=== PATIENT | female | born 1970 | race Caucasian/White ===

== ENCOUNTER 2019-09-03 18:45 | Emergency (ER) | payer OTHER, SELFPAY ==
[2019-09-03] VITALS (7 sets, daily range): BP systolic 99–133; BP diastolic 59–83; PULSE 72–88; RESP 12–26; TEMP 37.8; O2SAT 97–100; BMI 21.8
--- NOTE | 2019-09-03 19:11 | RAD_ITS ---
STUDY: X-RAY - RIGHT FOOT CLINICAL: Female, 49 years old. Fell on ice. TECHNIQUE: 3 view(s) of the foot. COMPARISON: None. FINDINGS: Fracture subluxation of the ankle. Talus and calcaneus are intact. Moderate heel spur. Normal visualized subtalar, talonavicular, calcaneocuboid, tarsal and tarsometatarsal articulations. Normal metatarsi. Normal metatarsophalangeal joint of the great toe. Normal tibial and fibular sesamoid bones. Normal interphalangeal joint of the great toe. Normal phalanges of the great toe. Normal second through fifth metatarsophalangeal joints. Normal interphalangeal joints and phalanges of the lesser toes. The soft tissue structures are unremarkable. RAD/Foot min 3 Views IMPRESSION: Fracture subluxation of the ankle. The foot is intact. Electronically Signed: Pamela Medeiros MD at 19:37 EST Tel , Service support ,
--- NOTE | 2019-09-03 19:14 | ED.VISSUMM ---
- ER Visit Summary Date of Service: 09/03/19 Chief Complaint: Right foot and ankle pain History of Present Illness: The patient is a 49 F presenting with right foot and ankle injury. Patient states she slipped on ice twisting her right foot and ankle. She states she felt that it was out of place and she pulled it back into place. This happened earlier today. She states she noticed later increasing swelling and pain. She denies other injuries. She did not hit her head or lose consciousness. No other complaints. Physical Examination: Vitals are stable. Patient is afebrile. Alert no acute distress. HEENT exam is unremarkable. Neck is nontender Lungs are clear and equal bilaterally. Heart is regular rate and rhythm. Extremities diffuse right foot and ankle ecchymosis and swelling. Normal pulse. No proximal fibula tenderness. Skin is warm and dry. No focal neurologic deficit. Remainder of exam is unremarkable. Emergency Department Course and Treatment: Patient declined [place]. She was given Motrin. Ice pack was applied. X-ray right foot and ankle show acute fracture subluxation of the ankle. The foot is intact. Patient was consented for procedural sedation. She was given propofol IV. Closed reduction was performed. Ortho-Glass splint was applied. Postreduction x-rays show anatomic alignment status post reduction. Discussed with Dr. Fong and patient will follow-up as an outpatient. She is given crutches and advised nonweightbearing. She is given a prescription for Percocet. Advised to follow-up with Dr. Fong. Advised return to ED if worsening complaints. Disposition: Discharge home Impression: Right ankle fracture/subluxation, procedural sedation, closed reduction This note was generated with [employer] dictation software. It may contain incorrect words, spelling, and punctuation that were not noted in review of the chart prior to signing ED Disposition - Plan for ED Patient: Instructions: FRACTURE, Lower Extremity Prescriptions: Oxycodone HCl/Acetaminophen [Percocet 5/325] 1 tab PO Q6H PRN PRN 5 Days #20 tab PRN Reason: Pain Score 6-10/10 Prescription Printed Referrals: Jair Fong DPM [STAFF PHYSICIAN] - Em Abraham PA [PHYSICIAN SPORTS LEADERSHIP INSTRUCTOR] -
--- NOTE | 2019-09-03 19:18 | RAD_ITS ---
STUDY: X-RAY - RIGHT ANKLE REASON FOR EXAM: Female, 49 years old. Fell on ice. TECHNIQUE: 3 view(s) of the ankle. COMPARISON: None. FINDINGS: Acute fracture subluxation of the ankle. Steep oblique fracture of the distal fibula extends to the level of the talar dome. There is 3 mm dorsolateral displacement of the distal fragment. No angulation. There is moderate lateral subluxation of the talus relative to the distal tibia. There is moderate widening of the medial tibiotalar joint. Transverse fracture of the medial malleolus, with 3 mm lateral displacement of the malleolar fragment. The tibia is otherwise intact. No posterior tibial fracture. Talus and calcaneus are intact. Moderate calcaneal spur. Visualized midfoot is unremarkable. RAD/Ankle min 3 Views IMPRESSION: Acute fracture subluxation of the ankle. Electronically Signed: Pamela Medeiros MD at 19:36 EST Tel , Service support ,
[2019-09-03] MEDS: Ibuprofen 600 MG Tablet PO (19:19)
--- NOTE | 2019-09-03 19:50 | ED.RN ---
DR SMITH PAGED FOR DR QUINTANA
--- NOTE | 2019-09-03 20:42 | RAD_ITS ---
STUDY: X-RAY - RIGHT ANKLE REASON FOR EXAM: Female, 49 years old. Post reduction. TECHNIQUE: 3 view(s) of the ankle. COMPARISON: 7:15 PM. FINDINGS: Status post reduction of bimalleolar fracture subluxation of the ankle, casted in fiberglass. Distal fibula fracture is in anatomic alignment, no angulation. Normal tibiotalar alignment, with no subluxation. Medial malleolar fracture is again demonstrated, with 5 mm distraction and 2 mm medial displacement of the malleolar fragment. Soft tissues and bony structures are otherwise unremarkable. RAD/Ankle min 3 Views IMPRESSION: Anatomic alignment status post reduction. Electronically Signed: Pamela Medeiros MD at 20:58 EST Tel , Service support ,
[2019-09-03] MEDS: Propofol 200 MG/20 ML Vial IV BOLUS (20:57)
[2019-09-03] MEDS: oxyCODONE 5 MG Tablet PO (21:10)
--- NOTE | 2019-09-03 21:26 | DCINST.ED_ITS ---
ED Disposition - Plan for ED Patient: Instructions: FRACTURE, Lower Extremity Prescriptions: Oxycodone HCl/Acetaminophen [Percocet 5/325] 1 tablet PO Q6H PRN PRN 5 Days #20 tablet PRN Reason: Pain Score 6-10/10 Referrals: Em Abraham PA [PHYSICIAN MEMBER SERVICE SPECIALIST] - Jair Fong DPM [STAFF PHYSICIAN] -
== END 2019-09-03 22:17 | disposition home or self-care (01) ==
LOC: ED 19:29
PROVIDERS: Emergency Provider Emergency Medicine
DX: S82.841A Displaced bimalleolar fracture of right lower leg, initial encounter for closed fracture (principal); S93.01XA Subluxation of right ankle joint, initial encounter; W00.0XXA Fall on same level due to ice and snow, initial encounter; Y93.9 Activity, unspecified; Z72.0 Tobacco use
CPT/HCPCS: 27810; 73610; 73630; 99152; 99285; J7030

== ENCOUNTER 2019-09-11 12:36 | Inpatient (IN) | payer OTHER, SELFPAY ==
[2019-09-03 18:46] VITALS: BMI 21.8
[2019-09-11 11:27] VITALS: BMI 23.7
[2019-09-11 12:15] VITALS: BP 126/77; PULSE 69; RESP 16; TEMP 36.9; O2SAT 100
--- NOTE | 2019-09-11 12:45 | EKG12_ITS ---
Test Reason : PREOP Blood Pressure : / mmHG Vent. Rate : 066 BPM Atrial Rate : 066 BPM P-R Int : 150 ms QRS Dur : 076 ms QT Int : 380 ms P-R-T Axes : 047 047 059 degrees QTc Int : 398 ms Normal sinus rhythm Normal ECG Confirmed by FILIBERTO MACKEY, NARA ([id number]), fashion editor HENRIETTA BULL ([id number]) on 09/18/2019 11:30:53 AM Referred By: Courtney Mosquera Confirmed By:NARA DE LOS SANTOS MD
--- NOTE | 2019-09-11 13:50 | RAD_ITS ---
STUDY: X-RAY CHEST REASON FOR EXAM: Female, 49 years old. Preoperative exam. TECHNIQUE: Frontal and lateral views of the chest COMPARISON: None. FINDINGS: The lungs are clear. There are no pleural effusions. There is no pneumothorax. The heart is normal in size. The visualized osseous structures are within normal limits. RAD/Chest PA and Lateral IMPRESSION: Clear lungs. Electronically Signed: Herb Whitaker, at 16:35 EST Tel , Service support ,
[2019-09-11 14:00] LABS: Absolute Lymphocyte Count 1.61 X10^3/uL (0.83-4.51); Absolute Neutrophil Count 4.6 X10^3/uL (2.0-7.7); Basophil# 0.02 X10^3/uL; Basophil% 0.3 % (0-1); Eosinophil# 0.05 X10^3/uL; Eosinophils% 0.7 % (0-5); Hematocrit 26.3 % (37-47); Hemoglobin 7.3 g/dL (12.0-15.0); Lymphocyte # 1.61 X10^3/ul (4.0); Lymphocyte % 23.7 % (19-41); Mean Corp Hgb Conc 27.8 g/dL (32-36); Mean Corpuscular Hgb 17.1 pg (27.0-32.0); Mean Corpuscular Volume 61.6 fL (81-99); Mean Platelet Vol. 9.4 fl (6.2-12.0); Monocyte# 0.46 X10^3/uL; Monocyte% 6.8 % (0-10); NRBC Flagged by Analyzer 0 % (0-5); Neutrophil # 4.64 X10^3/uL (2.7-7.7); Neutrophil % 68.2 % (47-70); POSITIVE MORPHOLOGY YES; Platelet Count 339 K/mm3 (150-450); RBC Distribution Width CV 21.2 % (11.6-14.6); RBC Distribution Width SD 45.4 fl (35.1-43.9); Red Blood Count 4.27 M/mm3 (4.2-5.4); White Blood Count 6.8 K/mm3 (4.4-11.0)
[2019-09-11 14:09] LABS: Differential Indicated SCAN CRITERIA MET
[2019-09-11 14:19] LABS: ALB/GLOB Ratio 1.1 RATIO (0.9-2.4); AST(SGOT) 15 U/L (15-37); Alanine Aminotransfer ALT/SGPT 16 U/L (13-56); Albumin, Serum 3.5 g/dL (3.2-5.0); Alkaline Phosphatase 50 U/L (45-117); Anion Gap 7 (5-15); BUN 7 mg/dL (7-18); BUN/Creat Ratio 12.3 RATIO (10-20); Calcium,Total 8.6 mg/dL (8.5-10.1); Chloride 107 mmol/L (98-107); Creatinine, Serum 0.57 mg/dL (0.55-1.02); EST Glomerular Filtration Rate 120 mL/min (>60); Est Glom Filt Rate - Afr Amer 145 mL/min (>60); Globulin 3.1 g/dL (2.2-4.2); Glucose 86 mg/dL (74-106); Potassium 3.6 mmol/L (3.5-5.1); Protein, Total 6.6 g/dL (6.4-8.2); Sodium Level 139 mmol/L (136-145)
[2019-09-11 14:25] LABS: Vitamin D,25 Hydroxy 7.3 ng/mL (29.95-100.01)
--- NOTE | 2019-09-11 15:10 | PCM.WC.HP ---
(1) Bimalleolar fracture of right ankle Status: Acute Current Visit: Yes Qualifiers: Encounter type: subsequent encounter Code(s): S82.841A - Displaced bimalleolar fracture of right lower leg, initial encounter for closed fracture (2) Right ankle pain Status: Acute Current Visit: Yes Code(s): M25.571 - Pain in right ankle and joints of right foot (3) Smoking Status: Acute Current Visit: Yes Code(s): F17.200 - Nicotine dependence, unspecified, uncomplicated History of Present Illness Date of Service: 09/11/19 Chief Complaint: Right ankle fracture History of Wound: This 49-year-old female sustained a fall at work on September 03, 2018 in which she helped felt a pop. She relocated her ankle on her own and try to return to work. She later reported to the emergency room and an additional reduction was performed and a splint was applied. She denies other injuries or loss of consciousness. She is having ongoing continued pain and is recommended she come in for admission to facilitate timely fracture fixation. She denies other new injuries or history of other fractures. Past Medical History Allergies/Adverse Reactions: Allergies No Known Allergies Allergy (Verified 09/03/19 18:48) Home Medications: Ambulatory Orders Medication Instructions Recorded Ibuprofen 600 mg PO 4X/DAY PRN PRN 09/11/19 Oxycodone HCl/Acetaminophen 1 ea PO Q6H PRN PRN 09/11/19 [Oxycodon-Acetaminophen 7.5-325] Lives: Spouse/ Significant Other Smoking Status: Current every day smoker Tobacco Use: Cigarettes, Vapor Review of Systems Constitutional: Denies: Chills, Fever, Fatigue Eyes: Denies: Blurred vision HEENT: Denies: Sinus Congestion, Sore Throat, Visual Changes Cardiovascular: Denies: Chest Pain, Claudication, Orthopnea Respiratory: Reports: Cough. Denies: Shortness of Breath, Sputum production Gastrointestinal: Denies: Nausea, Vomiting Musculoskeletal: Reports: Joint Tenderness - Right ankle. Denies: Foot Pain, Leg Pain - Physical Exam Vital Signs Temp Pulse Resp BP Pulse Ox 98.5 F 69 16 126/77 H 100 09/11/19 12:15 09/11/19 12:15 09/11/19 12:15 09/11/19 12:15 09/11/19 12:15 Assessment/Plan Active Problems (Last Updated 09/11/19 @ 15:07 by Courtney Mosquera DPM) Bimalleolar fracture of right ankle (Acute) Right ankle pain (Acute) Smoking (Acute)
--- NOTE | 2019-09-11 15:17 | HP.PCM_ITS ---
Problem List (1) Bimalleolar fracture of right ankle Status: Acute Qualifiers: Encounter type: subsequent encounter (2) Right ankle pain Status: Acute (3) Smoking Status: Acute History of Present Illness Date of Admission: 09/11/19 Chief Complaint: Right ankle fracture This 49-year-old female sustained a fall at work on September 03, 2018 in which she helped felt a pop. She relocated her ankle on her own and try to return to work. She later reported to the emergency room and an additional reduction was performed and a splint was applied. She denies other injuries or loss of consciousness. She is having ongoing continued pain and is recommended she come in for admission to facilitate timely fracture fixation. She denies other new injuries or history of other fractures. She relates she has no known significant medical history at this time however admits she has not been to a primary care physician in approximately 25 years. Her pain is controlled at this time however is reported to be up to an 8 out of 10. Past Medical History Medical History: Medical History (Last Updated 09/11/19 @ 15:07 by Courtney Mosquera DPM) Anemia D64.9 Smoking F17.200 Allergies No Known Allergies Allergy (Verified 09/03/19 18:48) Home Medications: Ambulatory Orders Medication Instructions Recorded Ibuprofen 600 mg PO 4X/DAY PRN PRN 09/11/19 Oxycodone HCl/Acetaminophen 1 ea PO Q6H PRN PRN 09/11/19 [Oxycodon-Acetaminophen 7.5-325] Surgical History: - - Tubal ligation Psychiatric History: Anxiety Lives: Spouse/ Significant Other Smoking Status: Current every day smoker - 1 pack/day with recent reduction Tobacco Use: Cigarettes, Vapor Alcohol: None Drugs: None - *Family History Maternal History Items: DVT Review of Systems Constitutional: Denies: Chills, Fever, Fatigue Eyes: Denies: Vision Change HEENT: Denies: Post Nasal Drip, Sore Throat, Visual Changes Cardiovascular: Denies: Chest Pain, Claudication, Orthopnea Respiratory: Reports: Cough. Denies: Shortness of Breath, Sputum production, Wheezing Gastrointestinal: Denies: Constipation, Diarrhea, Nausea, Vomiting Musculoskeletal: Reports: Joint Tenderness - Right ankle. Denies: Foot Pain, Leg Pain Skin: Denies: Wounds Neurological: Denies: Balance problems, Incoordination, Numbness, Tingling Hematologic/ Lymphatic: Reports: Easy Bruising VTE Information - Inpt Only VTE Present on Admission: No VTE Mechan Device Prophylaxis: SCD's VTE Pharm Prophylaxis ordered?: Yes Patient Problems: Active and Suspected Problems (Last Updated 09/11/19 @ 15:07 by Courtney Mosquera DPM) Bimalleolar fracture of right ankle (Acute) Right ankle pain (Acute) Smoking (Acute) - Physical Exam Vitals/I&O's: Vital Signs Temp Pulse Resp BP Pulse Ox 98.5 F 69 16 126/77 H 100 09/11/19 12:15 09/11/19 12:15 09/11/19 12:15 09/11/19 12:15 09/11/19 12:15 Oxygen Delivery Method Room Air Weight: 64.7 kg Body Mass Index (BMI) 23.7 Intake and Output for Last 24 Hours 09/09/19 09/10/19 09/11/19 23:59 23:59 23:59 Intake Total 150 / 150 Balance 150 / 150 General: Alert, Oriented x3, Cooperative HEENT: Atraumatic, PERRLA, EOMI, Normocephalic Oral: Moist Mucosa Lungs: Clear to auscultation Cardiovascular: Regular rate, Regular Rhythm Abdomen: Non Tender Extremities: No cyanosis, Capillary Refill Less than 3 Seconds - All digits right foot, No Calf Tenderness - Negative Major sign, Peripheral Pulses Normal - Palpable right dorsalis pedis 2 out of 4 Skin: - - Her splint is clean, dry, and intact without visualized fracture blisters or drainage to the right lower extremity Musculoskeletal: No Tenderness to Palpation of Joints or Extremities, Muscle Wasting, - - Active range of motion digits x5 right lower extremity Neurological: Sensory exam intact to light touch and pain Psych/Mental Status: Normal Affect, Appropriate, Anxious Laboratory Results 09/11/19 13:40: WBC 6.8, RBC 4.27, Hgb 7.3 L, Hct 26.3 L, MCV 61.6 L, MCH 17.1 L , MCHC 27.8 L, RDW Std Deviation 45.4 H, RDW Coeff of [place]faye 21.2 H, Plt Count 339, MPV 9.4, Immature Gran % (Auto) 0.300, Neut % (Auto) 68.2, Lymph % (Auto) 23.7, [place] % (Auto) 6.8, Eos % (Auto) 0.7, Baso % (Auto) 0.3, Absolute Neuts (auto) 4.6, Absolute Lymphs (auto) 1.61, Nucleated RBC % 0, Differential Comment 09/11/19 13:40: Sodium 139, Potassium 3.6, Chloride 107, Carbon Dioxide 25.0, Anion Gap 7, BUN 7, Creatinine 0.57, Est GFR (MDRD) Af Amer 145, Est GFR (MDRD) Non-Af 120, BUN/Creatinine Ratio 12.3, Glucose 86, Calcium 8.6, Total Bilirubin 0.40, AST 15, ALT 16, Alkaline Phosphatase 50, Total Protein 6.6, Albumin 3.5, Globulin 3.1, Albumin/Globulin Ratio 1.1 09/11/19 13:40: Vitamin D 25-Hydroxy 7.3 L Current Medications Acetaminophen (Tylenol) 325 mg PO Q4H PRN PRN PRN Reason: Pain Score 1-5/10 Hydrocodone Bitart/Acetaminophen ([place] 5mg-325mg) 1 tablet PO Q4H PRN PRN PRN Reason: Pain Score 6-10/10 Docusate Sodium (Colace) 100 mg PO BID PRN PRN PRN Reason: Constipation Sodium Chloride () 250 mls @ 15 mls/hr IV .[id number] PRN PRN Reason: Saline Flush Sodium Chloride () 250 mls @ 15 mls/hr IV .[id number] PRN PRN Reason: Additional IVPB Infusion Nutritional Formula (Lactose Free) (Ensure Enlive) 120 ml PO 4X/DAY ALEKSANDRA Ondansetron HCl (Zofran) 4 mg IV Q8H PRN PRN PRN Reason: NAUSEA/VOMITING Sodium Chloride () 10 - 40 ml IV UD PRN PRN Reason: SALINE FLUSH Assessment/Plan All Active Problems (Last Updated 09/11/19 @ 15:07 by Courtney Mosquera DPM) Bimalleolar fracture of right ankle (Acute) Right ankle pain (Acute) Smoking (Acute) Right lower extremity bimalleolar ankle fracture, closed Right ankle pain current smoker anemia Vitamin D deficiency I reviewed and discussed her case. Her x-rays were reviewed demonstrating adequate reduction of right malleolus ankle fracture. Additional fractures of the foot are not identified at this time or suspected. This is an unstable fracture pattern and I recommend open reduction internal fixation in a timely manner. Is noted she does have some ankle pain and this is fairly controlled with her splint intact and occasional pain medication. She has maintained a strict nonweightbearing status with assistive device as advised. The preoperative indications, planned procedure, possible benefits, risk, complications, and anticipated healing time and management were discussed in detail with the patient. She understands and elects to proceed with surgery at this time. Informed surgical consent will need to be signed. No guarantees are made. She understands risk and complications include but are not limited to the following: pain, swelling, scarring, need for further surgery, allergic reaction, blood clot, delayed or nonhealing, arthritis, hardware failure, chronic pain, loss of limb, function, life. I answered all her questions. We will tentatively plan on surgical repair tomorrow. I do recommend consultation with hospitalist to confirm anesthesia risk status and clearance. It is noted she has limited significant past medical history h owever she has not seen a primary care provider in over 25 years. She is a current smoker and reports she has had a history of anemia. Her preoperative diagnostic data including CBC, CMP, vitamin D, chest x-ray, and EKG were ordered. Preoperative assessment will be greatly appreciated. This planned procedure is for general and regional anesthesia. Pending clearance, preoperative orders including n.p.o. status and anticoagulation medications held will be entered. The patient is also amenable to start a formal smoking cessation program at this time and this will be facilitated. Her vitamin D level of 7.3 is noted and improvement strategies were discussed. Vitamin D supplementation was also ordered. The patient understands addressing these issues will optimize her healing potential. Full code status has been confirmed. Courtney Mosquera DPM, [facility] [phone]
--- NOTE | 2019-09-11 15:40 | CASEMGMT ---
Addendum entered by Susan Sandoval 09/12/19 10:32: Top Portion of First Report of Injury form has been filled out by pt and faxed to Karen @ [facility] at this time. Addendum entered by Susan Sandoval 09/12/19 10:30: 09/11/19: 1600: Call placed to [facility]. She states nothing has been filed @ [facility] yet. She states pt needs to fill out First Report of Injury form and faxed this form to this RN CM at this time. Form given to pt to complete at this time. Original Note: RN CM ROTARY CUTTER OPERATOR CM to room to meet with patient for initial transition planning/care coordination assessment. RN CM introduced self and role at [facility]. Pt voices understanding and consents to assessment at this time. Pt resting in bed in no distress at this time. Pt is A/O at this time and answers all questions appropriately. Care providers, pharmacy, and demographics verified/updated at this time. PCP: No PCP. Given list of local PCP's. Specialists: Demetri Preferred Pharmacy: [facility] Insurance: OBW for this admit. Pt also has [employer] insurance. Prescription Benefit: Yes Living Will/HPOA: does not have LW or HCPOA . Interested in more information and would like to talk to SW to complete paperwork. LNOK: , 3 adult children Living Arrangements: Lives with her in 2-story home. Her bedroom is on 2nd floor. Has a bathroom on 2nd floor as well. has been going up the stairs by pulling herself up and sliding back down. States prefers this rather than using her crutches on the stairs. is very supportive and has been assisting her with showering and dressing since her injury and doing all home mgmt tasks. Transportation: Pt states was driving prior to injury. , father, and children all can help with transportation. Denies concerns. DME: has the following DME: Crutches, shower chair, grab bars. States they are getting a hand-held shower soon. Pt states no need for further DME at this time. HHC/SNF: No history of either. No needs identified. Pt wishes to return home and states has no concerns with going home at time of discharge. States Dr Mosquera informed her she would be NWB x 2 months after surgery. CM to follow for any discharge planning/needs. Pt voices no further concerns/needs at this time. Advised pt to ask for CM if any further questions/concerns/needs arise. Voices understanding. PLAN: Home w/spousal support and discharge plans in place. Kari CROOK RN CM
[2019-09-11 16:15] VITALS: BP 118/72; PULSE 75; RESP 16; TEMP 37.2; O2SAT 100
--- NOTE | 2019-09-11 19:55 | PN_ITS ---
Patient Problems: Active and Suspected Problems (Last Updated 09/11/19 @ 15:07 by Courtney Mosquera DPM) Bimalleolar fracture of right ankle (Acute) Right ankle pain (Acute) Smoking (Acute) Subjective: 9-year-old female with no past medical history since she has not seen a doctor in the last 25 years presents after having a right ankle fracture from slipping on the ice at work on 09/03/2019. Medicine was consulted because since the patient has not seen a doctor in 25 years she had some very abnormal labs including a microcytic anemia with a hemoglobin of 7.3 with normal vital signs, as well as an extremely low vitamin D level of 7.3. She states that that in the last 6 months she has been having very heavy periods going through about 48 pads in 2 or 3 days. She states that they are much heavier than they were back when she was in her 20s, however she has not gone to see an BAGGAGE CHECKER. She also states that she had atypical cells after the of her third child and they were frozen but she never had any follow-up at that time. Also she is never had a mammogram, and all of this was discussed with her that they need to happen. She denies any history of significant bruising but does state that she has shortness of breath with exertion especially recently with the heavy menstrual cycles. There does not appear to be any easy bruising. She is a smoker though she says that she quit 2 days ago. Vitals/I&O's: Vital Signs Temp Pulse Resp BP Pulse Ox 98.9 F 75 16 118/72 100 09/11/19 16:15 09/11/19 16:15 09/11/19 16:15 09/11/19 16:15 09/11/19 16:15 Oxygen Delivery Method Room Air Weight: 142 lb 10.225 oz Body Mass Index (BMI) 23.7 Intake and Output for Last 24 Hours 09/09/19 09/10/19 09/11/19 23:59 23:59 23:59 Intake Total 650 / 650 Balance 650 / 650 General: Alert, Oriented x3, Cooperative, No apparent distress HEENT: Atraumatic, PERRLA, EOMI, Normocephalic Oral: Moist Mucosa Neck: Supple, No JVD Lungs: Clear to auscultation, Normal air movement, No rhonchi, No wheeze, No rales Cardiovascular: Regular rate, Regular Rhythm, Normal S1, Normal S2, No murmurs Abdomen: Soft, Non Tender, Non-Distended, No Hepato-splenomegaly Extremities: No edema, Capillary Refill Less than 3 Seconds, Peripheral Pulses Normal, - - Right ankle is wrapped Skin: No rashes, No breakdown Neurological: Neuro grossly intact, Sensory exam intact to light touch and pain Psych/Mental Status: Normal Affect, Appropriate Laboratory Results 09/11/19 13:40: WBC 6.8, RBC 4.27, Hgb 7.3 L, Hct 26.3 L, MCV 61.6 L, MCH 17.1 L , MCHC 27.8 L, RDW Std Deviation 45.4 H, RDW Coeff of Tesfaye 21.2 H, Plt Count 339, MPV 9.4, Immature Gran % (Auto) 0.300, Neut % (Auto) 68.2, Lymph % (Auto) 23.7, [place] % (Auto) 6.8, Eos % (Auto) 0.7, Baso % (Auto) 0.3, Absolute Neuts (auto) 4.6, Absolute Lymphs (auto) 1.61, Nucleated RBC % 0, Differential Comment 09/11/19 13:40: Sodium 139, Potassium 3.6, Chloride 107, Carbon Dioxide 25.0, Anion Gap 7, BUN 7, Creatinine 0.57, Est GFR (MDRD) Af Amer 145, Est GFR (MDRD) Non-Af 120, BUN/Creatinine Ratio 12.3, Glucose 86, Calcium 8.6, Total Bilirubin 0.40, AST 15, ALT 16, Alkaline Phosphatase 50, Total Protein 6.6, Albumin 3.5, Globulin 3.1, Albumin/Globulin Ratio 1.1 09/11/19 13:40: Vitamin D 25-Hydroxy 7.3 L 09/11/19 19:45: Blood Type Pending, Antibody Screen Pending 09/11/19 19:45: Iron Pending, TIBC Pending, Iron Saturation Pending Current Medications Acetaminophen (Tylenol) 325 mg PO Q4H PRN PRN PRN Reason: Pain Score 1-5/10 Hydrocodone Bitart/Acetaminophen ([place] 5mg-325mg) 1 tablet PO Q4H PRN PRN PRN Reason: Pain Score 6-10/10 Docusate Sodium (Colace) 100 mg PO BID PRN PRN PRN Reason: Constipation Ergocalciferol (Vitamin D) 50,000 unit PO Q7D [facility] Last Admin: 09/11/19 17:20 Dose: 50,000 unit Documented by: Sodium Chloride () 250 mls @ 15 mls/hr IV .[id number] PRN PRN Reason: Saline Flush Sodium Chloride () 250 mls @ 15 mls/hr IV .[id number] PRN PRN Reason: Additional IVPB Infusion Nutritional Formula (Lactose Free) (Ensure Enlive) 120 ml PO 4X/DAY [facility] Last Admin: 09/11/19 17:20 Dose: Not Given Documented by: Ondansetron HCl (Zofran) 4 mg IV Q8H PRN PRN PRN Reason: NAUSEA/VOMITING Sodium Chloride () 10 - 40 ml IV UD PRN PRN Reason: SALINE FLUSH STROKE Vital Signs/Narrative: Vital Signs Temp Pulse Resp BP Pulse Ox 09/11/19 16:15 98.9 F 75 16 118/72 100 Medical Necessity - Tobacco Use Smoking Status: Current every day smoker - 1 pack/day with recent reduction Tobacco Use: Cigarettes, Vapor Assessment/Plan All Active Problems (Last Updated 09/11/19 @ 15:07 by Courtney Mosquera DPM) Bimalleolar fracture of right ankle (Acute) Right ankle pain (Acute) Smoking (Acute) 1. Right lower extremity bimalleolar ankle fracture -Plan is for OR tomorrow -Her chest x-ray and her EKG are normal and she is low risk for surgery -With her anemia will transfuse her 1 unit tonight and will have a second unit extension service specialist in charge in case she needs it after surgery -Pain meds per primary 2. Microcytic anemia secondary to iron deficiency and acute on chronic blood loss from heavy menstruation -She will need to follow-up with an BAGGAGE CHECKER as an outpatient for further examination -We will obtain iron studies -She will likely need to be on iron supplements prior to discharge -We will transfuse 1 unit tonight and will have another unit available if necessary 3. Vitamin D deficiency -She does not go out into the sun because she says that she gets a significant itchy rash whenever she does go out into the sun -She received 50,000 IU today and she will need to do that once a week for the next 12 weeks I discussed with her the necessity of finding a primary care physician who can follow-up with all these labs as well as having an BAGGAGE CHECKER for Pap smears and ot her gynecological needs, given how heavy her periods are. Also discussed with her the typical screening that she will need, including a mammogram as well as a colonoscopy in March on her birthday. Code Visit Inpatient E&M: 23256 Subs Hosp L3
[2019-09-11 20:22] LABS: Iron 12 ug/dL (50-170); Iron Binding Capacity,Total 400 ug/dL (250-450)
[2019-09-11] MEDS: HYDROcodone Bitartrate/Apap 5/325 Tablet PO (23:12)
[2019-09-11 23:13] VITALS: BP 120/74; PULSE 68; RESP 16; TEMP 36.6; O2SAT 99
[2019-09-11] MEDS: 0.9% Saline Lock 10 ML Syringe IV ×2 (23:20→23:58)
[2019-09-11 23:45] VITALS: BP 115/69; PULSE 65; RESP 16; TEMP 36.6; O2SAT 100
[2019-09-11 23:52] VITALS: BP 109/68; PULSE 70; RESP 16; TEMP 37.1; O2SAT 100
[2019-09-12] VITALS (15 sets, daily range): BP systolic 90–163; BP diastolic 49–91; PULSE 65–90; RESP 16–18; TEMP 36.2–37; O2SAT 94–100; BMI 23.7
[2019-09-12] MEDS: LORazepam 2 MG/ML Syringe 0.5 MG IV (06:52)
[2019-09-12] MEDS: 0.9% Saline Lock 10 ML Syringe IV ×2 (06:52→15:48)
[2019-09-12 06:56] LABS: Absolute Lymphocyte Count 1.83 X10^3/uL (0.83-4.51); Absolute Neutrophil Count 4.2 X10^3/uL (2.0-7.7); Basophil# 0.02 X10^3/uL; Basophil% 0.3 % (0-1); Eosinophil# 0.12 X10^3/uL; Eosinophils% 1.8 % (0-5); Hematocrit 31.1 % (37-47); Hemoglobin 8.7 g/dL (12.0-15.0); Lymphocyte # 1.83 X10^3/ul (4.0); Lymphocyte % 27.4 % (19-41); Mean Corpuscular Hgb 17.8 pg (27.0-32.0); Mean Corpuscular Volume 63.6 fL (81-99); Mean Platelet Vol. 9.7 fl (6.2-12.0); Monocyte% 7.5 % (0-10); NRBC Flagged by Analyzer 0 % (0-5); Neutrophil # 4.18 X10^3/uL (2.7-7.7); Neutrophil % 62.7 % (47-70); POSITIVE MORPHOLOGY YES; Platelet Count 372 K/mm3 (150-450); RBC Distribution Width CV 24.4 % (11.6-14.6); RBC Distribution Width SD 53.2 fl (35.1-43.9); Red Blood Count 4.89 M/mm3 (4.2-5.4); White Blood Count 6.7 K/mm3 (4.4-11.0)
[2019-09-12 07:02] LABS: Prothrombin Time (Protime)PT. 13.2 SECONDS (11.7-14.9)
[2019-09-12 07:03] LABS: Partial Thromboplast Time 26.9 Seconds (24.1-36.2)
[2019-09-12 07:09] LABS: Differential Indicated SCAN CRITERIA MET
[2019-09-12 07:36] LABS: Anisocytosis 3+; Hypochromasia 1+
--- NOTE | 2019-09-12 10:00 | RAD_ITS ---
STUDY: X-RAY - RIGHT ANKLE REASON FOR EXAM: Female, 49 years old. ORIF TECHNIQUE: 10 fluoroscopic intraoperative view(s) of the ankle. COMPARISON: 09/03/2019 FINDINGS: Fluoroscopic guidance was provided during open reduction and internal fixation of the previously seen right ankle fractures. Fluoroscopy time was 96.7 seconds. Correlation with the operative report is recommended. RAD/Ankle min 3 Views IMPRESSION: As above. Electronically Signed: Herb Whitaker, at 14:02 EST Tel , Service support ,
[2019-09-12] MEDS: Cefazolin 2 GM in 0.9% Normal Saline 100 ML IV (10:37)
[2019-09-12] MEDS: Bupivacaine 0.5% PF 10 ML VIAL (12:46)
--- NOTE | 2019-09-12 13:02 | RAD_ITS ---
STUDY: X-RAY - RIGHT TIBIA AND FIBULA REASON FOR EXAM: Female, 49 years old. s/p ORIF bimalleolus fracture, proximal fibula fracture TECHNIQUE: 2 view(s) of the tibia and fibula were obtained. COMPARISON: None. FINDINGS: There is a fixation plates of the distal fibula with multiple transverse screws. There are 2 screws through the medial malleolus. Remainder of the visualized tibia is normal. There is an oblique fracture involving the proximal fibular shaft with mild separation along the fracture site. The soft tissue structures are unremarkable. RAD/Tibia & Fibula 2 Views IMPRESSION: Postoperative changes of the distal tibia and fibula with normal alignment. Fracture of the proximal fibula. Clinical correlation recommended. Electronically Signed: Britta Robert MD at 0:45 EST , Service support ,
--- NOTE | 2019-09-12 13:02 | RAD_ITS ---
STUDY: X-RAY - RIGHT ANKLE REASON FOR EXAM: Female, 49 years old. s/p ORIF bimalleolus ankle fracture TECHNIQUE: 3 view(s) of the ankle. COMPARISON: None. FINDINGS: The patient is status post fixation plate with multiple transverse screws through the distal fibula. There are 2 screws through the medial malleolus. Remainder of the visualized distal tibia and fibula are normal. Normal medial and lateral malleoli. Normal tibiotalar articulation and ankle mortise. There is plantar calcaneal spur, otherwise normal visualized talus and calcaneus. The visualized subtalar, talonavicular, calcaneocuboid and tarsal articulations are normal. There is no demonstrated fracture. The soft tissue structures are unremarkable. RAD/Ankle min 3 Views IMPRESSION: Postoperative changes as described above with normal alignment . Electronically Signed: Britta Robert MD at 0:44 EST , Service support ,
--- NOTE | 2019-09-12 13:05 | OP.PCM_ITS ---
Problem List (1) Bimalleolar fracture of right ankle Status: Acute Qualifiers: Encounter type: subsequent encounter Fracture type: closed Fracture healing: with routine healing Qualified Code(s): S82.841D - Displaced bima lleolar fracture of right lower leg, subsequent encounter for closed fracture with routine healing (2) Right ankle pain Status: Acute Report of Operation Date of Procedure: 09/12/19 Pre-Operative Diagnosis: bimalleolus right ankle fracture Post-Operative Diagnosis: bimalleolus right ankle fracture Surgery/Procedure Performed:: Open reduction internal fixation right bimalleolar ankle fracture Description of Surgical Findings:: Hemostasis: Well-padded pneumatic right thigh tourniquet, 315 mmHg, 87 minutes Materials: 2-0,3-0, 4-0 Vicryl, 3-0 nylon, two 4 mm long thread cannulated screws, one 8 hole Arthrex reconstructive locking straight fibula plate, two 4 mm fully threaded cancellus screws, one 3.5 mm cortical screw, three 3.5 mm locking screws, one 2.7 mm cortical screw The patient tolerated the procedure and anesthesia well. She was transported to the PACU with vital signs stable and vascular status intact to the right lower extremity. Pain medication was ordered. Post operative xrays were reviewed prior to leaving the operating room. She was splinted. She will remain non weightbearing. She will be transported back to medical surgical floor. Post operative orders were entered electronically. implementation advisor: none - surgeon: Courtney Mosquera DPM. Assistants: Sue Gibson and Mercedes Ramirez, PGY1 Type of Anesthesia:: General/Regional, Local - Postoperative: Right saphenous nerve block with a one-to-one mixture of 1% lidocaine plain and 0.5% Marcaine plain, 10 cc Specimen's removed: none Estimated Blood Loss (mL): < 100 mL Description of Procedure: Indications: This 49-year-old female with significant past medical history of anemia, vitamin D deficiency, and current smoker status sustained a bimalleolar ankle fracture of the right lower extremity on September 03, 2019 while at work. She denied loss of consciousness or other injuries. She is unable to bear weight and her fracture was formally reduced in the emergency room and she was placed in a splint. She was medically pre-operatively optimized with vitamin D supplementation, blood transfusion to address her anemia, and initiation of smoking cessation. She has been cleared for surgery and is low anesthesia risk. Her preoperative x-rays demonstrate spiral oblique fracture of the distal fibula at the level of the ankle joint with minimal displacement. She also has a transverse medial malleolus fracture at the level of the ankle joint and no posterior fragment noted. It is also noted that she does have a proximal fibula fracture that is nondisplaced and appears to also be spiral oblique. Her preoperative diagnostic data including CBC, CMP, vitamin D, EKG, and chest x-ray were reviewed in detail. The preoperative indications, planned procedure, possible benefits, risk, complications, anticipated healing time and management were discussed in detail with the patient. She understands and elects to proceed with surgery at this time. No guarantees were made. The informed surgical consent and limb were signed. She understands risk and complications may include but are not limited to the following: Pain, swelling, scarring, need for further surgery, delayed or nonhealing, infection, blood clot, allergic reaction, arthritis, hardware failure, chronic pain, loss of limb, function, or even life. I answered all of her questions. Procedure in detail: The patient was transported to the operating room via cart and placed on the operating table in the supine position. Final verification of the patient, limb designation, and planned procedure was confirmed via the time out procedure. General anesthesia was initiated by the anesthesia team. The anesthesia team also provided a right lower extremity regional nerve block preoperative. The right lower extremity was prepped and draped in the usual aseptic manner. IV Ancef was administered by the anesthesia team. The right lower extremity was exsanguinated with an Esmarch bandage and the tourniquet was inflated at this time. Surgery and the following manner: Attention was first directed to the lateral aspect of the distal fibula in which an 8 cm linear incision was made through the skin. Care was taken to identify, protect, and retract all neurovascular structures at this point and throughout the remainder of surgery. Blunt dissection was performed down to the fracture hematoma and this was gently from the adjacent soft tissue with a phiilp elevator taking care to preserve the periosteum on the distal fibula. A 15 blade scalpel, curette, and rongeur was used to debride fracture hematoma from the fracture site and this was irrigated with saline. Up to 2 mm of periosteum was reflected adjacent to the fracture fragment main fragment to allow proper reduction. The fracture was temporarily reduced and anatomic reduction was confirmed with intraoperative fluoroscopy. The fibula maintain proper length and there is appropriate angulation of distal fibula and overlap of the tibia. Next, one 2.7 fully threaded cortical screw was applied utilizing proper AO fixation technique with lag technique. Solid fixation was achieved. Next, a one third tubular reconstructive straight locking Arthrex 8 hole plate was applied as a neutralization plate. This was fixated distally with cancellus screws and proximally with locking and cortical 3.5 screws. Solid fixation was achieved and the fixated fracture moved as one solid unit. Proper placement and trajectory of hardware was confirmed with intraoperative fluoroscopy. Next, attention was directed to the medial aspect of the ankle in which a 4 cm linear incision was made centrally over the medial malleolus. Blunt dissection was performed down to the fracture hematoma. The transverse medial malleolus fracture site was identified and was mobilized. The invaginated periosteal tissue was removed and debrided in a minimal manner just enough to allow fracture fragment reapproximation. Fracture reduction was directly visualized and palpated and held in place with a [id number] reduction clamp. Next, two guidewires were applied and further 4.0 partially-threaded cannulated screws were applied according to proper AO fixation technique. Anatomic fracture reduction and proper placement of hardware was confirmed with intraoperative fluoroscopy. The ankle mortise appeared well aligned. The ankle passive range of motion was smooth and gliding at this time. Next, a syndesmosis injury was evaluated with a cotton test and stress ankle dorsiflexion external rotation. No instability or gapping at the medial gutter or tibia-fibula over flap was identified. It was not deemed necessary to apply internal syndesmosis fixation. The wounds were copiously irrigated with normal saline and deep closure was next achieved with Vicryl suture. The tourniquet was deflated at this time and brisk capillary refill time was noted to all digits of the right foot. No pulsatile bleeding was noted. Direct pressure and minimal electrocauterization was used to control hemostasis. The skin was next reapproximated with 3-0 nylon utilizing horizontal mattress and simple suture technique. A postoperative dressing consisting of Betadine soaked Adaptic, gauze, abdominal pad, and Kerlix were applied. Next a well-padded posterior mold with sugar tong splint was applied and secured with Wallace wrap in a neutral position. Postoperative x-rays were again obtained prior to leaving the operating room which demonstrated reduced ankle mortise with proper and desired placement of hardware with intended trajectories. Her non displaced proximal fibula fracture was also noted. No acute fractures or other injuries were noted. After procedure: The patient tolerated the procedure and anesthesia well. She was transported to the PACU with vital signs stable and vascular status intact to the right lower extremity. She was advised to maintain a strict nonweightbearing status to the right lower extremity and to use an assistive device. She will work with physical and occupational therapy tomorrow to confirm her nonweightbearing status and safe transition home. She was advised to ice and elevate for pain inflammation management. Oral and IV pain medications were ordered as needed. It is noted her regional block is in place. Medical management and DVT prophylaxis per primary team is greatly appreciated. Her preoperative anemia and blood transfusion are noted. An updated H&H will be performed later this evening to confirm if additional transfusion is necessary. Her blood loss during surgery was minimal. She will also continue on vitamin D supplementation and smoking cessation to optimize healing. Postoperative orders were entered electronically. Courtney Mosquera DPM, [facility] Grafts/Implants Used: arthrex - Complications none - Admit VTE Documentation VTE Present on Admission: No VTE Mechan Device Prophylaxis: SCD's VTE Pharm Prophylaxis ordered?: Yes
--- NOTE | 2019-09-12 15:02 | CASEMGMT ---
SW spoke w/pt regarding LW/POA. Pt just returned from surgery and is not feeling well enough at the moment to complete the forms. Pt also has several visitors at the bedside. SW reviewed the forms w/the pt briefly, gave her a copy of the forms with the SW rack card. SW explained to pt that when she is able, she can call to make an appt and come in as an outpatient to complete the forms. Pt states understanding. No further social service needs anticipated at this time. MICHAEL Garcia
[2019-09-12] MEDS: Morphine 2 MG/ML Syringe IV ×2 (15:48→22:08)
[2019-09-12] MEDS: 0.9% Normal Saline 1,000 ML 100 ML IV (16:10)
--- NOTE | 2019-09-12 17:28 | PN_ITS ---
Patient Problems: Active and Suspected Problems (Last Updated 09/11/19 @ 15:07 by Courtney Mosquera DPM) Bimalleolar fracture of right ankle (Acute) Right ankle pain (Acute) Smoking (Acute) Subjective: Patient was seen and examined today, she went to surgery for ORIF of her right bimalleolar ankle fracture, I talked with her today about her history of anemia- according to the patient she has very heavy menses, she has never seen any blood in her stool and she has never seen any black stools. Patient states I have been anemic all my life. - Physical Exam Vitals/I&O's: Vital Signs Temp Pulse Resp BP Pulse Ox 98.3 F 73 16 125/71 H 100 09/12/19 16:11 09/12/19 16:11 09/12/19 16:11 09/12/19 16:11 09/12/19 16:11 Oxygen Delivery Method Room Air Weight: 64.7 kg Body Mass Index (BMI) 23.7 Intake and Output for Last 24 Hours 09/10/19 09/11/19 09/12/19 23:59 23:59 23:59 Intake Total 650 / 650 1220 / 1220 Balance 650 / 650 1220 / 1220 General: Alert, Oriented x3, Cooperative, No apparent distress, Well developed HEENT: Atraumatic, PERRLA, EOMI, Normocephalic Oral: Moist Mucosa Neck: Supple, Trachea Midline, Thyroid Normal Size and Texture Lungs: Clear to auscultation, Normal air movement, No rhonchi, No wheeze, No rales Cardiovascular: Regular rate, Regular Rhythm, Normal S1, Normal S2, No murmurs, No Ectopic Activity, PMI Normal, No rub noted Abdomen: Bowel Sounds Present, Soft, Non Tender, Non-Distended Extremities: No clubbing, No cyanosis, No edema, Capillary Refill Less than 3 Seconds Skin: No rashes, No breakdown Musculoskeletal: No Tenderness to Palpation of Joints or Extremities Neurological: Cranial nerves II-XII grossly intact, Neuro grossly intact, Sensory exam intact to light touch and pain Psych/Mental Status: Normal Affect, Appropriate, Alert and oriented to time, place, person, mood and affect Laboratory Results 09/11/19 19:45: Blood Type A NEGATIVE, Antibody Screen NEGATIVE 09/11/19 19:45: Iron 12 L, TIBC 400, Iron Saturation 3.0 L 09/11/19 19:45: Crossmatch See Detail 09/12/19 06:20: WBC 6.7, RBC 4.89, Hgb 8.7 L, Hct 31.1 L, MCV 63.6 L, MCH 17.8 L , MCHC 28.0 L, RDW Std Deviation 53.2 H, RDW Coeff of [place] 24.4 H, Plt Count 372, MPV 9.7, Immature Gran % (Auto) 0.300, Neut % (Auto) 62.7, Lymph % (Auto) 27.4, [place] % (Auto) 7.5, Eos % (Auto) 1.8, Baso % (Auto) 0.3, Absolute Neuts (auto) 4.2, Absolute Lymphs (auto) 1.83, Nucleated RBC % 0, Hypochromasia 1+, Anisocytosis 3+ 09/12/19 06:20: PT 13.2, INR 1.0, APTT 26.9 Current Medications Acetaminophen (Tylenol) 325 mg PO Q4H PRN PRN PRN Reason: Pain Score 1-5/10 Docusate Sodium (Colace) 100 mg PO BID PRN PRN PRN Reason: Constipation Ergocalciferol (Vitamin D) 50,000 unit PO Q7D [facility] Last Admin: 09/11/19 17:20 Dose: 50,000 unit Documented by: Sodium Chloride () 250 mls @ 15 mls/hr IV .[id number] PRN PRN Reason: Saline Flush Sodium Chloride () 250 mls @ 15 mls/hr IV .[id number] PRN PRN Reason: Additional IVPB Infusion Sodium Chloride () 1,000 mls @ 100 mls/hr IV .Q10H [facility] Last Admin: 09/12/19 16:10 Dose: 100 mls/hr Documented by: Iron Sucrose 200 mg/ Sodium (Chloride) 110 mls @ 220 mls/hr IV X1 ONE Stop: 09/13/19 08:29 Morphine Sulfate () 2 mg IV Q3H PRN PRN PRN Reason: Pain Score 6-10/10 Last Admin: 09/12/19 15:48 Dose: 2 mg Documented by: Nutritional Formula (Lactose Free) (Ensure Enlive) 120 ml PO 4X/DAY [facility] Last Admin: 09/12/19 15:48 Dose: Not Given Documented by: Ondansetron HCl (Zofran) 4 mg IV Q8H PRN PRN PRN Reason: NAUSEA/VOMITING Oxycodone HCl (Oxyir) 5 mg PO Q6H PRN PRN PRN Reason: Pain Score 6-10/10 Sodium Chloride () 10 - 40 ml IV UD PRN PRN Reason: SALINE FLUSH Last Admin: 09/12/19 15:48 Dose: 10 ml Documented by: Sodium Chloride () 10 - 40 ml IV UD PRN PRN Reason: SALINE FLUSH Medical Necessity - Tobacco Use Smoking Status: Current every day smoker - 1 pack/day with recent reduction Tobacco Use: Cigarettes, Vapor Assessment/Plan All Active Problems (Last Updated 09/11/19 @ 15:07 by Courtney Mosquera DPM) Bimalleolar fracture of right ankle (Acute) Right ankle pain (Acute) Smoking (Acute) #1 iron deficiency anemia-probably secondary to chronic blood loss from menses, patient will need follow up as out patient, will give Venofer again tomorrow. Patient understands it is important to follow-up with her PCP due to the fact that she may have undiagnosed uterine fibroids or perhaps uterine cancer. #2 Right bimalleolar ankle fracture-postop day 0 Code Visit Inpatient E&M: 33845 Subs Hosp L2
[2019-09-12] MEDS: oxyCODONE 5 MG Tablet PO (17:48)
[2019-09-12 18:10] LABS: Hematocrit 28.2 % (37-47); Hemoglobin 8.2 g/dL (12.0-15.0)
[2019-09-13] MEDS: oxyCODONE 5 MG Tablet PO ×3 (00:23→12:13)
[2019-09-13] MEDS: 0.9% Normal Saline 1,000 ML 100 ML IV (01:00)
[2019-09-13 02:02] VITALS: BP 117/61; PULSE 78; RESP 18; TEMP 36.7; O2SAT 100
[2019-09-13] MEDS: Morphine 2 MG/ML Syringe IV ×2 (02:04→04:47)
[2019-09-13] MEDS: Acetaminophen 325 MG Tablet PO ×2 (04:48→09:49)
[2019-09-13 07:16] LABS: Absolute Lymphocyte Count 1.22 X10^3/uL (0.83-4.51); Absolute Neutrophil Count 9.1 X10^3/uL (2.0-7.7); Basophil# 0.02 X10^3/uL; Basophil% 0.2 % (0-1); Eosinophil# 0.01 X10^3/uL; Eosinophils% 0.1 % (0-5); Hematocrit 26.4 % (37-47); Hemoglobin 7.7 g/dL (12.0-15.0); Lymphocyte # 1.22 X10^3/ul (4.0); Lymphocyte % 10.7 % (19-41); Mean Corp Hgb Conc 29.2 g/dL (32-36); Mean Corpuscular Hgb 18.6 pg (27.0-32.0); Mean Corpuscular Volume 63.6 fL (81-99); Mean Platelet Vol. 9.5 fl (6.2-12.0); Monocyte# 0.91 X10^3/uL; NRBC Flagged by Analyzer 0 % (0-5); Neutrophil # 9.13 X10^3/uL (2.7-7.7); Neutrophil % 80.5 % (47-70); POSITIVE MORPHOLOGY YES; Platelet Count 346 K/mm3 (150-450); RBC Distribution Width CV 24.2 % (11.6-14.6); Red Blood Count 4.15 M/mm3 (4.2-5.4); White Blood Count 11.4 K/mm3 (4.4-11.0)
[2019-09-13 07:24] LABS: Differential Indicated SCAN CRITERIA MET
[2019-09-13 07:45] LABS: ALB/GLOB Ratio 1.2 RATIO (0.9-2.4); AST(SGOT) 14 U/L (15-37); Alanine Aminotransfer ALT/SGPT 18 U/L (13-56); Albumin, Serum 3.5 g/dL (3.2-5.0); Alkaline Phosphatase 48 U/L (45-117); Anion Gap 7 (5-15); BUN 5 mg/dL (7-18); BUN/Creat Ratio 8.5 RATIO (10-20); Calcium,Total 8.6 mg/dL (8.5-10.1); Chloride 109 mmol/L (98-107); Creatinine, Serum 0.59 mg/dL (0.55-1.02); EST Glomerular Filtration Rate 115 mL/min (>60); Est Glom Filt Rate - Afr Amer 139 mL/min (>60); Glucose 94 mg/dL (74-106); Potassium 3.4 mmol/L (3.5-5.1); Protein, Total 6.5 g/dL (6.4-8.2); Sodium Level 139 mmol/L (136-145)
[2019-09-13 08:13] LABS: Anisocytosis 2+; Hypochromasia 3+; Microcytosis 2+; Platelet Estimate ADEQUATE (ADEQ); Polychromasia RARE
[2019-09-13 09:40] VITALS: BP 122/67; PULSE 78; RESP 16; TEMP 36.7; O2SAT 100
--- NOTE | 2019-09-13 10:18 | DCINST_ITS ---
- Discharge Diagnoses Current Active Problems: Current Active and Chronic Problems (Last Updated 09/11/19 @ 15:07 by Courtney Mosquera DPM) Bimalleolar fracture of right ankle (Acute) Right ankle pain (Acute) Smoking (Acute) You will use the following diet at home:: No restrictions Your food should be the consistency of: Regular Your liquids should be the consistency of: Regular/Thin Discharge Activity: Return to Normal Activity Weight Bearing Status: No weight bearing - right Allergies/Adverse Reactions: Allergies No Known Allergies Allergy (Verified 09/03/19 18:48) Medications to take at Discharge Aspirin 325 mg PO BID #60 tab 09/13/19 Calcium (Elemental) [Os-Yovanny 500] 500 mg PO BIDCM #60 tab 09/13/19 Ergocalciferol [Vitamin D] 50,000 unit PO Q7D #4 cap 09/13/19 Ferrous Sulfate 325 mg PO BIDCM #60 tab 09/13/19 Oxycodone [Oxyir] 5 - 10 mg PO Q6H PRN PRN 7 Days #40 tab 09/13/19 The following prescriptions were given: Aspirin 325 mg PO BID #60 tab Prescription Printed Ferrous Sulfate 325 mg PO BIDCM #60 tab Prescription Printed Calcium (Elemental) [Os-Yovanny 500] 500 mg PO BIDCM #60 tab Prescription Printed Oxycodone [Oxyir] 5 - 10 mg PO Q6H PRN PRN 7 Days #40 tab PRN Reason: Pain Score 6-10/10 Transmission Status: Received by [address] Ergocalciferol [Vitamin D] 50,000 unit PO Q7D #4 cap Transmission Status: Received by [address] Primary Care Physician: Care Physician,No Primary [Primary Care Provider] - Please follow up with your Primary Care Physician in: in next 2 weeks-get your anemia worked up Test Results: Test results from this visit will be discussed in further detail at your follow- up appointment, if applicable. Please Follow Up With: Courtney Mosquera DPM When: next or Sunday
--- NOTE | 2019-09-13 10:19 | PN_ITS ---
Patient Problems: Active and Suspected Problems (Last Updated 09/11/19 @ 15:07 by Courtney Mosquera DPM) Bimalleolar fracture of right ankle (Acute) Right ankle pain (Acute) Smoking (Acute) Anemia (Acute) Vitamin D deficiency (Acute) Closed fracture of fibula, proximal, right (Acute) Subjective: This 49-year-old female was seen bedside postoperative day #1 open reduction internal fixation of right bimalleolus ankle fracture. Her pain is better controlled compared to earlier this morning and she relates she is ready to go home. She is able to keep weight off of the sling. She denies fever, chill, nausea, vomiting, shortness of breath, chest pain, calf pain, urinary retention or constipation. She relates her regional block has wore off. She relates she has restless leg syndrome and this is been going on for approximately 3 years. She asked about treatment options. - Physical Exam Vitals/I&O's: Vital Signs Temp Pulse Resp BP Pulse Ox 98.0 F 78 16 122/67 H 100 09/13/19 09:40 09/13/19 09:40 09/13/19 09:40 09/13/19 09:40 09/13/19 09:40 Oxygen Delivery Method Room Air Weight: 64.7 kg Body Mass Index (BMI) 23.7 Intake and Output for Last 24 Hours 09/11/19 09/12/19 09/13/19 23:59 23:59 23:59 Intake Total 650 / 650 2070 / 2070 1883.33 / 1883.33 Output Total 500 / 500 750 / 750 Balance 650 / 650 1570 / 1570 1133.33 / 1133.33 General: Alert, Oriented x3, Cooperative HEENT: Atraumatic Lungs: Clear to auscultation, No wheeze Cardiovascular: Regular rate, Regular Rhythm Extremities: No cyanosis, Capillary Refill Less than 3 Seconds, No Calf Tenderness - Negative Major sign bilateral, Peripheral Pulses Normal - Palpable right DP pulse Skin: - - Right lower extremity dressing and splint is clean dry and intact without strikethrough noted the ankle remains in a rectus position Musculoskeletal: No Tenderness to Palpation of Joints or Extremities, Muscle Wasting, - - Active range of motion digits x5 right Neurological: Sensory exam intact to light touch and pain - Epicritic sensation intact to light touch to all 5 digits right foot Psych/Mental Status: Normal Affect, Appropriate Laboratory Results 09/12/19 18:05: Hgb 8.2 L, Hct 28.2 L 09/13/19 06:50: WBC 11.4 H, RBC 4.15 L, Hgb 7.7 L, Hct 26.4 L, MCV 63.6 L, MCH 18.6 L, MCHC 29.2 L, RDW Std Deviation 53.0 H, RDW Coeff of Tesfaye 24.2 H, Plt Count 346, MPV 9.5, Immature Gran % (Auto) 0.500, Neut % (Auto) 80.5 H, Lymph % (Auto) 10.7 L, Towner % (Auto) 8.0, Eos % (Auto) 0.1, Baso % (Auto) 0.2, Absolute Neuts (auto) 9.1 H, Absolute Lymphs (auto) 1.22, Nucleated RBC % 0, Platelet Estimate ADEQUATE, Polychromasia RARE, Hypochromasia 3+, Anisocytosis 2+, Microcytosis 2+ 09/13/19 06:50: Sodium 139, Potassium 3.4 L, Chloride 109 H, Carbon Dioxide 23.0, Anion Gap 7, BUN 5 L, Creatinine 0.59, Est GFR (MDRD) Af Amer 139, Est GFR (MDRD) Non-Af 115, BUN/Creatinine Ratio 8.5 L, Glucose 94, Calcium 8.6, Total Bilirubin 0.40, AST 14 L, ALT 18, Alkaline Phosphatase 48, Total Protein 6.5, Albumin 3.5, Globulin 3.0, Albumin/Globulin Ratio 1.2 Current Medications Acetaminophen (Tylenol) 325 mg PO Q4H PRN PRN PRN Reason: Pain Score 1-5/10 Last Admin: 09/13/19 09:49 Dose: 325 mg Documented by: Docusate Sodium (Colace) 100 mg PO BID PRN PRN PRN Reason: Constipation Ergocalciferol (Vitamin D) 50,000 unit PO Q7D [facility] Last Admin: 09/11/19 17:20 Dose: 50,000 unit Documented by: Sodium Chloride () 250 mls @ 15 mls/hr IV .[id number] PRN PRN Reason: Saline Flush Sodium Chloride () 250 mls @ 15 mls/hr IV .[id number] PRN PRN Reason: Additional IVPB Infusion Sodium Chloride () 1,000 mls @ 100 mls/hr IV .Q10H [facility] Last Admin: 09/13/19 01:00 Dose: 100 mls/hr Documented by: Morphine Sulfate () 2 mg IV Q3H PRN PRN PRN Reason: Pain Score 6-10/10 Last Admin: 09/13/19 02:04 Dose: 2 mg Documented by: Nutritional Formula (Lactose Free) (Ensure Enlive) 120 ml PO 4X/DAY [facility] Last Admin: 09/13/19 09:49 Dose: Not Given Documented by: Ondansetron HCl (Zofran) 4 mg IV Q8H PRN PRN PRN Reason: NAUSEA/VOMITING Oxycodone HCl (Oxyir) 5 mg PO Q6H PRN PRN PRN Reason: Pain Score 6-10/10 Last Admin: 09/13/19 06:24 Dose: 5 mg Documented by: Sodium Chloride () 10 - 40 ml IV UD PRN PRN Reason: SALINE FLUSH Last Admin: 09/12/19 15:48 Dose: 10 ml Documented by: Sodium Chloride () 10 - 40 ml IV UD PRN PRN Reason: SALINE FLUSH Medical Necessity - Tobacco Use Smoking Status: Current every day smoker - 1 pack/day with recent reduction Tobacco Use: Cigarettes, Vapor Assessment/Plan All Active Problems (Last Updated 09/11/19 @ 15:07 by Courtney Mosquera DPM) Bimalleolar fracture of right ankle (Acute) Right ankle pain (Acute) Smoking (Acute) Anemia (Acute) Vitamin D deficiency (Acute) Closed fracture of fibula, proximal, right (Acute) Status post open reduction internal fixation of right lower extremity bimalleola r ankle fracture -postoperative day #1 Proximal closed right fibula fracture current smoker anemia likely secondary to heavy menstruation Vitamin D deficiency I reviewed and discussed her case. Her postoperative x-rays were reviewed with reduction of fracture fragments and ankle mortise with hardware in desired position and trajectory. She also has a proximal right fibula fracture that is nondisplaced. No acute injuries are noted. She is advised to ice and elevate for pain inflammation management. She is advised to maintain a strict nonweightbearing status to the right lower extremity with crutches and a knee roller for assistance. She is able to perform this. She was advised to keep her dressing and splint clean, dry, and intact until she follows up next week at the [facility]. She was provided with a prescription for OxyIR for pain control and she was advised on safe and proper use. She was also advised to continue incentive spirometer use at home on an hourly basis while awake. Medical management and DVT prophylaxis per hospitalist team is greatly appreciated. DVT signs and symptoms were discussed. Her heavy menstrual cycle is a concern with blood thinner use. She will proceed with taking full-strength aspirin twice daily. The patient is also amenable to start a formal smoking cessation program at this time and this will be facilitated. Her vitamin D level of 7.3 is noted and improvement strategies were discussed with limited sun exposure and diet. Vitamin D supplementation was also prescribed; 50,000 units weekly. Improvement will be monitored in outpatient setting. We also discussed her concerns about restless leg syndrome. I am suspecting this may be a nerve injury or neuropathy secondary to her anemia. Further work-up will be conducted in the outpatient setting. She understands she will need to promptly follow-up with her [employer] and primary care physician to facilitate her outpatient medical management. The patient understands addressing these issues will optimize her healing potential. She will be discharged home today and all postoperative orders were placed electronically. Courtney Mosquera DPM, [facility] [phone]
--- NOTE | 2019-09-13 10:20 | PCM.DC.POD ---
Discharge Diet: No Restrictions Discharge Activity: May not drive while taking narcotic pain medications., Use Crutches Weight Bearing Status: No weight bearing Keep extremity elevated above heart level: Right Leg Call your doctor if your incision/area has: Continuous Slow Oozing, Sudden Increased Bleeding, Increased Pain/ Swelling, Increased Redness, Foul Smelling Discharge, Swelling at the incision site Call your doctor if you observe: Fever of 101 or Higher, Calf discomfort, Uncontrolled pain Cleanse incision/area with: Keep Dressing Clean & Dry, - - keep splint intact Allergies/Adverse Reactions: Allergies No Known Allergies Allergy (Verified 09/03/19 18:48) Medications to take at Discharge Aspirin 325 mg PO BID #60 tab 09/13/19 Calcium (Elemental) [Os-Yovanny 500] 500 mg PO BIDCM #60 tab 09/13/19 Ergocalciferol [Vitamin D] 50,000 unit PO Q7D #4 cap 09/13/19 Ferrous Sulfate 325 mg PO BIDCM #60 tab 09/13/19 Oxycodone [Oxyir] 5 - 10 mg PO Q6H PRN PRN 7 Days #40 tab 09/13/19 The following prescriptions were given: Aspirin 325 mg PO BID #60 tab Prescription Printed Ferrous Sulfate 325 mg PO BIDCM #60 tab Prescription Printed Calcium (Elemental) [Os-Yovanny 500] 500 mg PO BIDCM #60 tab Prescription Printed Oxycodone [Oxyir] 5 - 10 mg PO Q6H PRN PRN 7 Days #40 tab PRN Reason: Pain Score 6-10/10 Transmission Status: Received by [address] Ergocalciferol [Vitamin D] 50,000 unit PO Q7D #4 cap Transmission Status: Received by [address] Primary Care Physician: Care Physician,No Primary [Primary Care Provider] - Test Results: Test results from this visit will be discussed in further detail at your follow-up appointment, if applicable. Please Follow Up With: Courtney Mosquera DPM When: [facility] week [facility]. call [phone] if questions Proposed Discharge Date: 09/13/19
--- NOTE | 2019-09-13 11:30 | PCM.DC.SUM ---
Discharge Date and Diagnosis - Problem List Patient Problems: Active and Suspected Problems (Last Updated 09/11/19 @ 15:07 by Courtney Mosquera DPM) Closed fracture of fibula, proximal, right (Acute) Vitamin D deficiency (Acute) Anemia (Acute) Date of Admission: 09/11/19 Date of Discharge: 09/13/19 - Primary Discharge Diagnosis Active and Suspected Problems (Last Updated 09/11/19 @ 15:07 by Courtney Mosquera DPM) Closed fracture of fibula, proximal, right (Acute) Vitamin D deficiency (Acute) Anemia (Acute) Bimalleolar fracture of right ankle (Acute) Right ankle pain (Acute) Smoking (Acute) - Secondary Discharge Diagnosis Anemia Smoking habits Hospital Course and Treatment Imaging Results: Right ankle x-ray: Postoperative reduction and fixation of bimalleolar ankle fracture with distal fibula plate and screws and medial malleolus screws applied. The hardware is in the desired position and trajectory. There are no acute injuries noted. Her ankle mortise is intact and fractures are anatomically reduced. Right leg x-ray: Postoperative ankle open reduction internal fixation is noted without further displacement or disruption to the spiral oblique proximal fibula fracture site. Preoperative chest x-ray: No acute cardiopulmonary findings noted. EKG preoperative: No acute findings or evidence of infarct medicine physical therapy occupational therapy nutrition services Operations: - - Tubal ligation Procedures: Blood transfusion, EKG, - - Open reduction internal fixation of right ankle bimalleolus fracture Summary of Care Provided: The patient is a 49 year old F sustained a mechanical fall at work on 09/03/2019 which resulted in a right bimalleolar ankle fracture and proximal fibula fracture. She was admitted secondary to pain and to facilitate timely surgical repair of her ankle fracture. It was noted that she had not been seeing a primary care doctor for over 2 decades. It was noted she has anemia likely secondary to heavy menstrual periods in which she required 1 unit of blood transfused prior to surgery. Is also noted she has a low vitamin D level and is going to require supplementation in the inpatient and outpatient basis. The medicine team was consulted for preoperative clearance and for management of these medical comorbidities and input was greatly appreciated. She underwent surgical repair on 09/12/2019. She was further Inpatient Status after Surgical Repair for Pain Management and for Medical Management. Her H&H Levels Were Stable in the Postoperative Setting and She Did Not Require an Additional Blood Transfusion. Her Pain Was Controlled. She Was Seen by the Therapist and Is Able to Maintain a Nonweightbearing Status to the Surgical Limb. We Discussed DVT Prophylaxis in the Outpatient Setting and Elected to Discharge Her on Aspirin 325 Mg Twice Daily. There Was Concern of Other Anticoagulation Medication Options Due To Her Heavy Menstrual Habits. She Was Discharged Home and Will Follow up with a [facility] in 1 Week. Condition at Discharge Is Stable. *[email or web address] Dictation software was utilized. Please disregard improper capitalization and other minor typographical errors. Patient Problems: Active and Suspected Problems (Last Updated 09/11/19 @ 15:07 by Courtney Mosquera DPM) Closed fracture of fibula, proximal, right (Acute) Vitamin D deficiency (Acute) Anemia (Acute) - Physical Exam Vitals/I&O's: Vital Signs Temp Pulse Resp BP Pulse Ox 98.0 F 78 16 122/67 H 100 09/13/19 09:40 09/13/19 09:40 09/13/19 09:40 09/13/19 09:40 09/13/19 09:40 Oxygen Delivery Method Room Air Weight: 64.7 kg Body Mass Index (BMI) 23.7 Intake and Output for Last 24 Hours 09/11/19 09/12/19 09/13/19 23:59 23:59 23:59 Intake Total 650 / 650 2070 / 2070 1883.33 / 1883.33 Output Total 500 / 500 750 / 750 Balance 650 / 650 1570 / 1570 1133.33 / 1133.33 General: Alert, Oriented x3, Cooperative HEENT: Atraumatic Oral: Moist Mucosa Lungs: Clear to auscultation, No wheeze Cardiovascular: Regular rate, Regular Rhythm, No murmurs Abdomen: Non Tender Extremities: No cyanosis, Capillary Refill Less than 3 Seconds - All digits bilateral feet, No Calf Tenderness - Negative Major bilateral leg, Edema - Mild, Peripheral Pulses Normal Skin: - - No skin tenting or skin discontinuity or fracture blister the right lower extremity. Her skin turgor is normal. Musculoskeletal: Muscle Wasting, - - Postsurgical rectus right ankle position noted. Compartments are soft to palpate. Her splint is intact to the right lower extremity Neurological: Sensory exam intact to light touch and pain Psych/Mental Status: Normal Affect, Appropriate Laboratory Results 09/12/19 18:05: Hgb 8.2 L, Hct 28.2 L 09/13/19 06:50: WBC 11.4 H, RBC 4.15 L, Hgb 7.7 L, Hct 26.4 L, MCV 63.6 L, MCH 18.6 L, MCHC 29.2 L, RDW Std Deviation 53.0 H, RDW Coeff of Tesfaye 24.2 H, Plt Count 346, MPV 9.5, Immature Gran % (Auto) 0.500, Neut % (Auto) 80.5 H, Lymph % (Auto) 10.7 L, Mathews % (Auto) 8.0, Eos % (Auto) 0.1, Baso % (Auto) 0.2, Absolute Neuts (auto) 9.1 H, Absolute Lymphs (auto) 1.22, Nucleated RBC % 0, Platelet Estimate ADEQUATE, Polychromasia RARE, Hypochromasia 3+, Anisocytosis 2+, Microcytosis 2+ 09/13/19 06:50: Sodium 139, Potassium 3.4 L, Chloride 109 H, Carbon Dioxide 23.0, Anion Gap 7, BUN 5 L, Creatinine 0.59, Est GFR (MDRD) Af Amer 139, Est GFR (MDRD) Non-Af 115, BUN/Creatinine Ratio 8.5 L, Glucose 94, Calcium 8.6, Total Bilirubin 0.40, AST 14 L, ALT 18, Alkaline Phosphatase 48, Total Protein 6.5, Albumin 3.5, Globulin 3.0, Albumin/Globulin Ratio 1.2 Current Medications Acetaminophen (Tylenol) 325 mg PO Q4H PRN PRN PRN Reason: Pain Score 1-5/10 Last Admin: 09/13/19 09:49 Dose: 325 mg Documented by: Docusate Sodium (Colace) 100 mg PO BID PRN PRN PRN Reason: Constipation Ergocalciferol (Vitamin D) 50,000 unit PO Q7D [facility] Last Admin: 09/11/19 17:20 Dose: 50,000 unit Documented by: Sodium Chloride () 250 mls @ 15 mls/hr IV .[id number] PRN PRN Reason: Saline Flush Sodium Chloride () 250 mls @ 15 mls/hr IV .[id number] PRN PRN Reason: Additional IVPB Infusion Sodium Chloride () 1,000 mls @ 100 mls/hr IV .Q10H [facility] Last Admin: 09/13/19 01:00 Dose: 100 mls/hr Documented by: Morphine Sulfate () 2 mg IV Q3H PRN PRN PRN Reason: Pain Score 6-10/10 Last Admin: 09/13/19 02:04 Dose: 2 mg Documented by: Nutritional Formula (Lactose Free) (Ensure Enlive) 120 ml PO 4X/DAY [facility] Last Admin: 09/13/19 09:49 Dose: Not Given Documented by: Ondansetron HCl (Zofran) 4 mg IV Q8H PRN PRN PRN Reason: NAUSEA/VOMITING Oxycodone HCl (Oxyir) 5 mg PO Q6H PRN PRN PRN Reason: Pain Score 6-10/10 Last Admin: 09/13/19 06:24 Dose: 5 mg Documented by: Sodium Chloride () 10 - 40 ml IV UD PRN PRN Reason: SALINE FLUSH Last Admin: 09/12/19 15:48 Dose: 10 ml Documented by: Sodium Chloride () 10 - 40 ml IV UD PRN PRN Reason: SALINE FLUSH Discharge Diet: No Restrictions Discharge Activity: Return to Normal Activity Weight Bearing Status: No weight bearing - right Keep extremity elevated above heart level: Right Leg Call your doctor if your incision/area has: Continuous Slow Oozing, Sudden Increased Bleeding, Increased Pain/ Swelling, Increased Redness, Foul Smelling Discharge, Swelling at the incision site Call your doctor if you observe: Fever of 101 or Higher, Calf discomfort, Uncontrolled pain Cleanse incision/area with: Keep Dressing Clean & Dry, - - keep splint intact Home Medications: Medications to take at Discharge Aspirin 325 mg PO BID #60 tab 09/13/19 Calcium (Elemental) [Os-Yovanny 500] 500 mg PO BIDCM #60 tab 09/13/19 Ergocalciferol [Vitamin D] 50,000 unit PO Q7D #4 cap 09/13/19 Ferrous Sulfate 325 mg PO BIDCM #60 tab 09/13/19 Oxycodone [Oxyir] 5 - 10 mg PO Q6H PRN PRN 7 Days #40 tab 09/13/19 Following Prescrptions Were Given to Patient: Aspirin 325 mg PO BID #60 tab Prescription Printed Ferrous Sulfate 325 mg PO BIDCM #60 tab Prescription Printed Calcium (Elemental) [Os-Yovanny 500] 500 mg PO BIDCM #60 tab Prescription Printed Oxycodone [Oxyir] 5 - 10 mg PO Q6H PRN PRN 7 Days #40 tab PRN Reason: Pain Score 6-10/10 Transmission Status: Received by [address] Ergocalciferol [Vitamin D] 50,000 unit PO Q7D #4 cap Transmission Status: Received by [address] Primary Care Physician: Care Physician,No Primary [Primary Care Provider] - Please follow up with your Primary Care Physician in: in next 2 weeks-get your anemia worked up Please Follow Up With: Courtney Mosquera DPM When: next or Sunday Please Follow Up With: [employer]PER[employer] When: within 2 weeks Disposition: Home Minutes spent on discharge:: 20 Patient Condition:: Stable Medical Necessity - Tobacco Use Smoking Status: Current every day smoker - 1 pack/day with recent reduction Tobacco Use: Cigarettes, Vapor Meaningful Use Info Meaningful Use Diagnoses (Choose all that apply): None applicable
== END 2019-09-13 12:55 | disposition home or self-care (01) | DRG 494 ==
PROVIDERS: Anesthesiology; Family Medicine; Admitting Provider Podiatrist; Referring Provider Podiatrist; Visit Provider Internal Medicine
PROC: 0QSJ04Z Reposition Right Fibula with Internal Fixation Device, Open Approach (ICD-10-PCS; principal; 2019-09-12 10:25)
DX: S82.841A Displaced bimalleolar fracture of right lower leg, initial encounter for closed fracture (principal); F17.210 Nicotine dependence, cigarettes, uncomplicated; E55.9 Vitamin D deficiency, unspecified; W19.XXXA Unspecified fall, initial encounter; Y99.0 Civilian activity done for income or pay; S82.831A Other fracture of upper and lower end of right fibula, initial encounter for closed fracture; D50.0 Iron deficiency anemia secondary to blood loss (chronic)
CPT/HCPCS: 36415; 71046; 73590; 73610; 76000; 80053; 82306; 83540; 83550; 85014; 85018; 85025; 85610; 85730; 86850; 86900; 86901; 86920; 86922; 93005; 97802; 99251; 99406; C1713; J1756; J7030; P9016; A4216; G0463; J2405

== ENCOUNTER → 2025-05-05 | Outpatient (CLI) | payer OTHER, BC, SELFPAY ==
[2025-05-05 12:43] LABS: Hematocrit 38.7 % (37-47); Hemoglobin 12.8 g/dL (12.0-15.0); Immature Granulocytes Count 0.010 X10^3/uL (0.0-0.0); Mean Corp Hgb Conc 33.1 g/dL (32-36); Mean Corpuscular Volume 87.6 fL (81-99); Mean Platelet Vol. 11.1 fl (6.2-12.0); NRBC Flagged by Analyzer 0 % (0-5); Platelet Count 278 K/mm3 (150-450); RBC Distribution Width CV 13.7 % (11.6-14.6); RBC Distribution Width SD 44.1 fl (35.1-43.9); Red Blood Count 4.42 M/mm3 (4.2-5.4); White Blood Count 6.8 K/mm3 (4.4-11.0)
[2025-05-05 17:34] LABS: AST(SGOT) 20 U/L (<=31); Alanine Aminotransfer ALT/SGPT 16 U/L (<=34); Albumin, Serum 4.5 g/dL (3.5-5.0); Alkaline Phosphatase 81 U/L (35-104); Anion Gap 14 (5-15); BUN 9 mg/dL (4-19); BUN/Creat Ratio 12.5 RATIO (10-20); Calcium,Total 10.1 mg/dL (7.6-11.0); Carbon Dioxide 23.3 mmol/L (21.0-32.0); Chloride 104 mmol/L (98-108); Cholesterol 213 mg/dL (<=200); Ferritin 82 ng/mL (22-378); Free T3 3.2 pg/mL (2.18-3.98); Globulin 2.7 g/dL (2.2-4.2); Glucose 104 mg/dL (70-99); Low Density Lipoprotein Calc. 119 mg/dL; Potassium 4.0 mmol/L (3.3-5.1); Triglycerides 159 mg/dL; Very Low Density Lipoprotein 32 mg/dL (5-40); Vitamin D,25 Hydroxy 34.2 ng/mL (30-100); cholesterol:hdl ratio screen 3.41
[2025-05-05 17:53] LABS: Iron Binding Capacity,Total 316 ug/dL (250-450)
[2025-05-05 17:55] LABS: CRP < 3.00 mg/L (0.0-3.0); Iron 68 ug/dL (50-170); Iron Binding Capacity,Unsat 248 ug/dL (228-428)
[2025-05-07 13:08] LABS: ANTINUCLEAR ANTIBODIES DIRECT Negative (Negative)
== END | disposition home or self-care (01) ==
LOC: VSLAB 10:19
PROVIDERS: Visit Provider Nurse Practitioner Family
DX: Z13.1 Encounter for screening for diabetes mellitus (principal); Z13.220 Encounter for screening for lipoid disorders; D50.9 Iron deficiency anemia, unspecified; E03.9 Hypothyroidism, unspecified; M25.549 Pain in joints of unspecified hand
CPT/HCPCS: 36415; 80053; 80061; 82306; 82728; 83036; 83540; 83550; 84439; 84443; 84481; 85025; 85652; 86038; 86140; 86376; 86431

== ENCOUNTER → 2025-09-03 | Outpatient (CLI) | payer BC, SELFPAY ==
--- NOTE | 2025-09-03 13:58 | RAD_ITS ---
PROCEDURE: RIBS LEFT UNI MIN 3V W/PA CHEST 09/03/2025 REASON FOR EXAM: EPIGASTRIC PAIN/LOCALIZED SWELLING, MASS AND LUMP for 6-8 weeks. TECHNIQUE: Procedure Code: RADRIB Modality: DX Procedure: RIBS UNI MIN 3V W/PA CHEST COMPARISON: XR CHEST 2V, 09/11/2019. FINDINGS: LUNGS AND PLEURA: The lungs are clear. No pleural effusion or pneumothorax. HEART AND MEDIASTINUM: The heart size and mediastinal contours are normal. BONES: No acute osseous abnormality. No evidence of acute rib fracture. Mild S-shaped thoracolumbar scoliosis. RAD/Ribs Uni Min 3V w/PA Chest IMPRESSION: No rib fracture or other acute abnormality seen. Reading Location: [id number]
--- OUTSIDE RECORDS SUMMARY | 2025-09-03 19:15 | XMS RPT_ITS | CCD ---
Author Organization [facility] Care Team Providers Care Erosion Control Specialist Name Role Phone BRAYAN WHITE, MICHELLE Primary Care Physician Unavailable Primary Care Provider Unavailabl e Unavailable Primary Care Provider Shruthi WHITE, MICHELLE Primary Care Mima WILL MD, DR JOSE Perla Attending Unavail able MICHELLE CHRISTIANSON Primary Care Mima PRUITT DO, DR HERRMANN Attending Unavailable Unavailable Primary Care Provider UnavailMONTEZ Hoover Referring Unavailable NORAH DEJESUS Attending Unavailable Unavailable Primary Care Provider Unavailmaria eugenia e Care Physician, No Primary Primary Care Provider Unavailable Kenya Pulido Attending Provider [phone] KENYA LOOMIS Referring Kenya Bonilla Attending Unavailable Care Physician, No Primary Primary Care Unava ilable Allergies Allergy Classification Reported Allergen(s) Allergy Type Date of Onset Reaction(s) Facility (4 sources) Acetaminophen / oxyCODONE; Translations: [acetaminophen-oxy codone] Drug Allergy nausea and vomiting immediately [facility] Work Phone: Medications Current Medications Medication Drug Class(es) Dates Sig (Normalized) Sig (Original) ascorbic acid 500 mg oral tablet (2 sources) Vitamin C Start: 04-01-2020 take 1 tablet by mouth twice daily Vitamin C 500 mg oral tablet take 1 tablet by mouth twice a day with IRON Start Date: 04/01/20 Status: Ordered aspirin 325 mg oral tablet (1 source) Platelet Aggregation Inhibitor, Nonsteroidal Anti-inflammatory Drug Start: 09-13-2019 take 1 tablet by mouth twice daily Aspirin 325 MG tablet Active 325 mg PO TWICE A DAY 60 0 September 13, 2019 1:00am calcium carbonate 1250 mg oral tablet (1 source) Start: 09-13-2019 take 1 tablet by mouth twice daily at mealtime Calcium Carbonate 500 MG tablet Active 500 mg PO TWICE DAILY WITH MEALS 60 0 September 13, 2019 1:00am cholecalciferol 1.25 mg oral capsule (2 sources) Vitamin D Start: 04-01-2020 take 1 capsule by mouth every week D3-50 (50,000 units) oral capsule take 1 capsule by mouth every week Start Date: 04/01/20 Status: Ordered cyclobenzaprine hydrochloride 10 mg oral tablet (7 sources) Muscle Relaxant Start: 12-21-2021 take 1 tablet by mouth every eight hours as needed cyclobenzaprine (FLEXERIL) 10 mg tablet Take 1 tablet by mouth three times daily as needed for muscle spasm. 12 tablet 12/21/2021 Active Start: 12-21-2021 End: 12-21-2021 take 1 tablet by mouth twice daily as needed for muscle spasms cyclobenzaprine (FLEXERIL) 10 mg tablet Indications: Acute right-sided low back pain with right-sided sciatica Take 1 tablet by mouth twice daily as needed for muscle spasm. 60 tablet 0 12/21/2021 12/21/2021 Discontinued Comment on above: Take 1 tablet by niurka th three times daily as needed for muscle spasm. Take 1 tablet by niurka th twice daily as needed for muscle spasm. ergocalciferol 1.25 mg oral capsule (1 source) Provitamin D2 Compound Start: 09-13-2019 Ergocalciferol (Vitamin D2) 50,000 UNIT capsule Active 41268 U PO Q7D 4 0 September 13, 2019 1:00am estradiol 1 mg oral tablet (8 sources) Estrogen Start: 07-19-2022 Estrace 1 mg oral tablet Dose : 1 mg = 1 tab(s), Oral, qDay, # 30 tab(s), 0 Refill(s), Pharmacy: [id number], Well woman exam with routine gynecological exam Hormone replacement therapy, 162, cm, 07/19/22 11:27:00 EDT, Height Start Date: 07/19/22 Status: Ordered Start: 06-30-2022 estradiol 0.1 mg/24 hours weekly transdermal film Apply 1 patch(es), Transdermal, 2X/week, # 8 patch(es), 4 Refill(s), Pharmacy: [facility] #[id number], 161, cm, 06/30/22 9:51:00 EDT, Height, 68.8, kg, 06/30/22 9:51:00 EDT, Dosing Weight Start Date: 06/30/22 Status: Ordered Start: 12-19-2021 estradiol (COLTEN RA, VIVELLE-DOT) 0.1 mg/24 hr apply 1 patch topically two times a week as directed 12/19/2021 Active Comment on above: apply 1 patch topica lly two times a week as directed estradiol 0.0375 mg/24 hours twice weekly transdermal film (2 sources) Start: 1 estradiol 0.0375 mg/24 hours twice weekly transdermal film Apply 1 patch(es), Transdermal, 2X/week, # 8 patch(es), 0 Refill(s), [facility] 165, cm, 06/28/21 9:00:00 EDT, Height, 65.9, kg, 06/28/21 9:00:00 EDT, Dosing Weight Start Date: 06/28/21 Status: Ordered estradiol 0.05 mg/24 hours twice weekly patch (1 source) Start: 1 estradiol 0.05 mg/24 hours twice weekly patch Apply 1 patch(es), Topical, 2x/Wk, # 8 patch(es), 5 Refill(s), Pharmacy: [facility] [address] 165, cm, 06/28/21 9:00:00 EDT, Height, 65.9, kg, 06/28/21 9:00:00 EDT, Dosing Weight Start Date: 07/21/21 Status: Ordered estradiol 0.075 mg/24 hours twice weekly transdermal film, extended release (1 source) Start: 1 estradiol 0.075 mg/24 hours twice weekly transdermal film, extended release 1 patch(es), Transdermal, 2X/week, # 8 patch(es), 0 Refill(s), Pharmacy: [facility] 165, cm, 06/28/21 9:00:00 EDT, Height, kg, 06/28/21 9:00:00 EDT, Dosing Weight Start Date: 08/03/21 Status: Ordered estradiol 0.1 mg/24 hours weekly transdermal film (1 source) Start: 1 estradiol 0.1 mg/24 hours weekly transdermal film Apply 1 patch(es), Transdermal, 2X/week, # 8 patch(es), 0 Refill(s), Pharmacy: [facility] 165, cm, 06/28/21 9:00:00 EDT, Height, 65.9, kg, 06/28/21 9:00:00 EDT, Dosing Weight Start Date: 09/06/21 Status: Ordered ferrous sulfate 325 mg oral tablet (1 source) Start: 9 take 1 tablet by mouth twice daily at mealtime Ferrous Sulfate 325 MG tablet Active 325 mg PO TWICE DAILY WITH MEALS 60 0 September 13, 2019 1:00am ibuprofen 600 mg oral tablet (3 sources) Nonsteroidal Anti-inflammatory Drug Start: 0 ibuprofen 600 mg oral tablet Dose : 600 mg = 1 tab(s), Oral, q6h, # 40 tab(s), 1 Refill(s), Pharmacy: [facility] 162.6, cm, 04/15/20 17:51:00 EDT, Height, kg, 04/15/20 17:51:00 EDT, Dosing Weight Start Date: 04/16/20 Status: Ordered Start: 09-11-2019 End: 09-13-2019 take 1 tablet by mouth four times daily as needed for pain Ibuprofen 600 MG tablet Discontinued 600 mg PO 4 TIMES DAILY NEEDED as needed for Pain/Inflammation September 11, 2019 1:00am September 13, 2019 11:07am naproxen 500 mg oral tablet (6 sources) Nonsteroidal Anti-inflammatory Drug Start: 04-08-2012 take 1 tablet by mouth twice daily at mealtime naproxen (NAPROSYN) 500 mg tablet Indications: Wrist pain Take 1 tablet by mouth twice daily with meals. 28 tablet 0 04/08/2012 Active Comment on above: Take 1 tablet by niurka th twice daily with meals. omeprazole 20 mg delayed release oral capsule (1 source) Proton Pump Inhibitor Start: 07-19-2022 omeprazole 20 mg oral delayed release capsule Dose : 20 mg = 1 cap(s), Oral, qDayAC, # 30 cap(s), 2 Refill(s), Pharmacy: [facility] #[id number], Abdominal pain, left lateral NSAID long-term use, 165.1, cm, 07/19/22 14:26:00 EDT, Height Start Date: 07/19/22 Status: Ordered PEG-3350 with Electrolytes (Eqv-GoLYTELY) oral powder for reconstitution (1 source) Start: 07-19-2022 PEG-3350 with Electrolytes (Eqv-GoLYTELY) oral powder for reconstitution See Instructions, Take as directed 1 day before colonoscopy. Follow instructions as provided by your GI provider at [facility] # 1 EA, 0 Refill(s), Pharmacy: [facility] #[id number], 165.1, cm, 07/19/22 14:26:00 EDT, Height Start Date: 07/19/22 Status: Ordered predniSONE 20 mg oral tablet (1 source) Start: 12-21-2021 End: 12-25-2021 take 2 tablets by mouth once daily at mealtime predniSONE (DELTASONE) 20 mg tablet Indications: Acute right-sided low back pain with right-sided sciatica Take 2 tablets by mouth once daily for 4 days. Take daily with food. 8 tablet 0 12/21/2021 12/25/2021 Active Comment on above: Take 2 tablets by [facility] once daily for 4 days. Take daily with food. progesterone 100 mg oral capsule (11 sources) Progesterone Start: 12-19-2021 End: 07-30-2022 take 1 capsule by mouth every twenty-four hours as needed progesterone micronized (PROMETRIUM) 100 mg capsule Take 100 mg by mouth at bedtime as needed. 12/19/2021 Active Start: 08-03-2021 Prometrium 100 mg oral capsule Dose : 100 mg = 1 cap(s), Oral, qHS, # 1 cap(s), 4 Refill(s), Pharmacy: [facility] 165, cm, 06/28/21 9:00:00 EDT, Height, kg, 06/28/21 9:00:00 EDT, Dosing Weight Start Date: 08/03/21 Status: Ordered Start: 06-28-2021 End: 07-26-2021 Prometrium 100 mg oral capsu le Dose : 100 mg = 1 cap(s), Oral, qDay, X 28 day(s), # 28 cap(s), 0 Refill(s), 07/26/21 9:54:00 EST, [facility]acy: [facility] [place] [address], 165, cm, 06/28/21 9:00:00 EDT, Height, kg, 06/28/21 9:00:00 EDT, Dosing Weight Start Date: 06/28/21 Stop Date: 07/26/21 Status: Ordered Comment on above: Take 100 mg by mouth at bedtime as needed. 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 30 tablet 3 04/08/2012 Active Comment on above: Take 1 tablet by niurka once daily. Vitamin C 500 mg oral tablet (2 sources) Start: 04-01-2020 take 1 tablet by mouth twice daily Vitamin C 500 mg oral tablet take 1 tablet by mouth twice a day with IRON Start Date: 04/01/20 Status: Ordered Completed/Discontinued Medications Medication Drug Class(es) Dates Sig (Normalized) Sig (Original) acetaminophen 325 mg / oxyCODONE hydrochloride 7.5 mg oral tablet (2 sources) Opioid Agonist Start: 09-11-2019 End: 09-13-2019 Oxycodone-Acetamino phen 1 EACH tablet Discontinued 1 NMA PO EVERY 6 HOURS NEEDED as needed for Pain Or Fever September 11, 2019 1:00am September 13, 2019 11:07am Start: 09-03-2019 End: 09-08-2019 Oxycodone-Acetaminophen 1 TA BLET tablet Discontinued 1 {tbl} PO EVERY 6 HOURS NEEDED as needed for Pain Score 6-10/10 20 5 0 September 03, 2019 September 07, 2019 1:00am September 08, 2019 1:08am Fracture of ankle Other fracture of unspecified lower leg, initial encounter for closed fracture D3-50 (50,000 units) oral capsule (2 sources) Start: 06-30-2022 End: 06-25-2023 D3-50 (50,000 units) oral capsule Dose : 1,250 mcg = 1 cap(s), Oral, Sunday, take 1 capsule by mouth every week, # 13 cap(s), 3 Refill(s), [facility]: [id number], 161, cm, 06/30/22 9:51:00 EDT, Height Start Date: 06/30/22 Stop Date: 06/25/23 Status: Ordered FeroSul 325 mg (65 mg elemen roxane iron) oral tablet (4 sources) Start: 06-30-2022 End: 06-25-2023 FeroSul 325 mg (65 mg elemen roxane iron) oral tablet Dose : 325 mg = 1 tab(s), Oral, BID, take 1 tablet by mouth twice a day WITH VIT C, AVOID MILK PRODUCTS WITHIN 1 HOUR OF TAKING, # 180 tab(s), 3 Refill(s), [facility]acy: [facility] #[id number], 161, , 06/30/22 9:51:00 EDT, Height Start Date: 06/30/22 Stop Date: 06/25/23 Status: Ordered Start: 04-01-2020 take 1 tablet by niurka th twice daily FeroSul 325 mg (65 mg elemental iron) oral tablet take 1 tablet by mouth twice a day WITH VIT C, AVOID MILK PRODUCTS WITHIN 1 HOUR OF TAKING Start Date: 04/01/20 Status: Ordered meloxicam 7.5 mg oral tablet (1 source) Nonsteroidal Anti-inflammatory Drug Start: 07-05-2022 End: 01-01-2023 meloxicam 7.5 mg oral tablet Dose : 7.5 mg = 1 tab(s), Oral, qDay, PRN Pain, Take with food/milk, # 90 tab(s), 1 Refill(s), [facility]: [facility] #[id number], 161, cm, 07/05/22 11:57:00 EDT, Height Start Date: 07/05/22 Stop Date: 01/01/23 Status: Ordered oxyCODONE hydrochloride 5 mg oral tablet (1 source) Opioid Agonist Start: 09-13-2019 End: 09-20-2019 take 5-10 mg by mouth every six hours as needed for pain Oxycodone 5 MG tablet Discontinued 5 - 10 mg PO EVERY 6 HOURS NEEDED as needed for Pain Score 6-10/10 40 7 0 September 13, 2019 September 19, 2019 1:00am September 20, 2019 1:09am Bimalleolar fracture of right ankle PARoxetine hydrochloride 20 mg oral tablet (10 sources) Serotonin Reuptake Inhibitor Start: 06-30-2022 End: 06-25-2023 PARoxetine 20 mg oral tablet Dose : 40 mg = 2 tab(s), Oral, qDay, # 180 tab(s), 3 Refill(s), Pharmacy: [facility] #[id number], 161, cm, 06/30/22 9:51:00 EDT, Height, kg, 06/30/22 9:51:00 EDT, Dosing Weight Start Date: 06/30/22 Stop Date: 06/25/23 Status: Ordered Start: 09-29-2021 take 1 tablet by niurka th once daily PARoxetine (PAXIL) 10 mg tablet Take 10 mg by mouth once daily. 09/29/2021 Active Start: 06-22-2021 End: 09-20-2021 PARoxetine 10 mg oral tablet Dose : 10 mg = 1 tab(s), Oral, qDay, # 90 tab(s), 0 Refill(s), Pharmacy: [facility] 164.7, cm, 06/20/21 16:11:00 EDT, Height, kg, 06/20/21 16:11:00 EDT, Dosing Weight Start Date: 06/22/21 Stop Date: 09/20/21 Status: Ordered Comment on above: Take 10 mg by mouth once daily. Problems Active Problems Problem Classification Problem Date Documented Date Episodic/Chronic Abdominal pain (5 sources) Left lower quadrant pain; Translations: [Left sided abdominal pain] 06-21-2021 Episodic Deficiency and other anemia (4 sources) Microcytic anemia 10-29-2019 Episodic Deficiency and other anemia (1 source) Anemia; Translations: [Anemia, unspecified] 09-13-2019 Episodic Diabetes mellitus without complication (1 source) Hyperglycemia 06-25-2023 Episodic Disorders of lipid metabolism (2 sources) Hyperlipidemia 01-12-2022 Chronic Fracture of lower limb (2 sources) Displaced bimalleolar fracture of right lower leg, initial encounter for closed fracture; Translations: [Bimalleolar fracture of right ankle] 09-12-2019 Episodic Malaise and fatigue (2 sources) Fatigue 01-16-2022 Episodic Menopausal disorders (4 sources) Menopausal flushing 06-21-2021 Chronic Nutritional deficiencies (6 sources) Vitamin D deficiency; Translations: [Vitamin D deficiency, unspecified] 10-29-2019 Chronic Other connective tissue disease (1 source) Acquired trigger finger; Translations: [Trigger finger, unspecified finger] 10-23-2023 Episodic Other non-traumatic joint disorders (3 sources) Multiple joint pain; Translations: [Pain in unspecified joint] 06-30-2022 Episodic Other non-traumatic joint disorders (1 source) Ankle pain; Translations: [Pain in right ankle and joints of right foot] 09-11-2019 Episodic Other nutritional; endocrine; and metabolic disorders (1 source) History of iron deficiency 07-19-2022 Episodic Other screening for suspected conditions (not mental disorders or infectious disease) (3 sources) Stool DNA-based colorectal cancer screening positive; Translations: [Encounter for screening for diabetes mellitus] Onset: 07-21-2025 06-30-2022 Episodic Residual codes; unclassified (1 source) FH: Crohn's disease 07-19-2022 Episodic Spondylosis; intervertebral disc disorders; other back problems (3 sources) Acute back pain with sciatica; Translations: [Lumbago with sciatica, right side] Episodic Substance-related disorders (7 sources) Tobacco user; Translations: [Nicotine dependence, unspecified, uncomplicated] Onset: 11-06-2008 11-06-2008 Chronic Thyroid disorders (4 sources) Hypothyroidism; Translations: [Subclinical hypothyroidism] 06-21-2021 Chronic Unclassified (4 sources) History of total hysterectomy without abnormal cervical Papanicolaou smear 06-21-2021 Unclassified (1 source) Patient encounter status 07-19-2022 Past or Other Problems Problem Classification Problem Date Documented Da te Episodic/Chronic Anxiety disorders (4 sources) Anxiety; Translations: [Anxiety state] Onset: 11-06-2008 Resolved: 04-04-2012 06-30-2022 Chronic Mood disorders (2 sources) Depressive disorder; Translations: [Other specified depressive episodes] Onset: 11-17-2005 Resolved: 04-04-2012 04-04-2012 Chronic Results Test Name Value Interpretation Reference Range Facility [facility] 05-15-2025 [facility] Telephone (XRI) ---- MICHELLE VILLALOBOS ([id number]) 1970 F Date Time Provider Department 05/15/25 DIRK HARRIS XRI During your visit today, we recorded the following information about you: Kenya Barlow 05/15/2025 9:35 AM Signed Patient reports the ordering provider for 05/07/25 XR BL HANDS never received the report. Please fax to the office of Kenya Loomis CNP at [phone]. Dirk Harris, [facility] 05/15/2025 9:44 AM Signed faxed Allergies As of Date: 05/15/2025 (No Known Allergies) Date Reviewed: 12/21/2021 Reviewed by: Matilde Rodríguez MA - Fully Assessed Reason for Visit: Results [95] Prescriptions as of 06/02/2025 - estradiol (ELLI, VIVELLE-DOT) 0.1 mg/24 hr apply 1 patch topically two times a week as directed - PARoxetine (PAXIL) 10 mg tablet Take 10 mg by mouth once daily. - progesterone micronized (PROMETRIUM) 100 mg capsule Take 100 mg by mouth at bedtime as needed. - cyclobenzaprine (FLEXERIL) 10 mg tablet Take 1 tablet by mouth three times daily as needed for muscle spasm. - pyridoxine (VITAMIN B-6) 100 mg tablet Take 1 tablet by mouth once daily. - naproxen (NAPROSYN) 500 mg tablet Take 1 tablet by mouth twice daily with meals. Problem List As Of Date 05/15/2025 Noted Resolved Depressive disorder, not elsewhere classified [*11/17/2005 04/04/2012 TOBACCO USE DISORDER [F17.200] 11/06/2008 Anxiety state, unspecified [F41.1] 11/06/2008 04/04/2012 Encounter Status:Closed by KENYA BARLOW on 06/02/25 [facility] ANTINUCLEAR ANTIBODIES DIREC Ton 05-07-2025 LEEANNE,DIRECT Negative Normal Negative [facility] Comment on above: Result Comment: Perf ormed at: [facility] [address] [id number] Marine Fireman: Lowell Son PhD, Phone: [phone] Performed By: #### L 3100.5475, L100.0100, L500.4050, L101.9900, L3300.6900, L501.83974, L500.4100, L506.0400, L501.6710, L505.7010, L506.1001, L503.6030, L503.6550, L501.9520, L501.9985 #### [facility] [address] [place], [address] Thyroid Peroxidase ABon 08-2 THYR PEROX AB 11 IU/mL Normal 0-34 [facility] Comment on above: Result Comment: Perf ormed at: [facility] [address] [id number] Marine Fireman: Lowell Son PhD, Phone: [phone] Performed By: #### L 3100.5475, L100.0100, L500.4050, L101.9900, L3300.6900, L501.41699, L500.4100, L506.0400, L501.6710, L505.7010, L506.1001, L503.6030, L503.6550, L501.9520, L501.9985 #### [facility] [address] [place], [address] XR HAND 3V PA/LAT/OBL BILon 05-07-2025 XR HAND 3V PA/LAT/OBL JUSTIN * * *Final Report* * * DATE OF EXAM: May 07 2025 8:01AM [id number] - XR HAND 3V PA/LAT/OBL JUSTIN / PROCEDURE REASON: M25.549 * * * * Physician Interpretation * * * * EXAMINATION / TECHNIQUE: XR HAND 3V PA/LAT/OBL JUSTIN HISTORY: PT STATES BILAT CMC PAIN M25.549 COMPARISON: None RESULT: No acute fracture or dislocation in either hand. Severe bilateral first CMC joint osteophyte arthritis. Severe right and moderate left triscaphe osteophyte arthritis. No osseous erosion. IMPRESSION: Severe bilateral first CMC joint osteoarthritis. Computer Teacher: KRISTEN Transcribe Date/Time: May 13 2025 6:21P Dictated by : TRE MUNOZ MD This examination was interpreted and the report reviewed and electronically signed by: TRE MUNOZ MD on May 13 2025 6:21PM EST [id number] Normal [facility] Absolute lymphocyte countOrd ered By: Kenya Loomis on 05-05-2025 Lymphocytes Auto (Unsp spec) [#/Vol] 2.22 10*3/uL 0.83-4.51 [facility] Absolute neutrophil countOrd ered By: Kenyamagaly Loomis on 05-05-2025 Neutrophils (Bld) [#/Vol] 4.0 10*3/uL 2.0-7.7 [facility] Anion gap in Serum or Plasma Ordered By: Kenya Loomis on 05-05-2025 Anion gap [Moles/Vol] 14 mmol/L 5-15 [facility] Automated lymphocyte count a s percentage of total leukocytesOrdered By: Kenya Loomis on 05-05-2025 Lymphocytes/100 WBC Auto (Unsp spec) 32.8 % - [facility] BUN/creatinine ratioOrdered By: Kenya Loomis on 05-05-2025 Urea nitrogen/Creatinine [Mass ratio] 12.5 mg/mg 10-20 [facility] Basophil percentageOrdered B y: Kenya Loomis on 05-05-2025 Basophils/100 WBC (Bld) 0.4 % 0-1 [facility] Bilirubin, totalOrdered By: Kenya Loomis on 05-05-2025 Bilirubin [Mass/Vol] 0.25 mg/dL 0.00-1.30 [facility] CBC W/Diff, Automatedon 04-17 Absolute Lymph 2.22 X10 3/uL Normal 0.83-4.51 [facility] Comment on above: Performed By: #### L 3100.5475, L100.0100, L500.4050, L101.9900, L3300.6900, L501.01524, L500.4100, L506.0400, L501.6710, L505.7010, L506.1001, L503.6030, L503.6550, L501.9520, L501.9985 #### [facility] [address] [place], [place], [id number] (058) Absolute Neut 4.0 X10 3/uL Normal 2.0-7.7 [facility] Comment on above: Performed By: #### L 3100.5475, L100.0100, L500.4050, L101.9900, L3300.6900, L501.75649, L500.4100, L506.0400, L501.6710, L505.7010, L506.1001, L503.6030, L503.6550, L501.9520, L501.9985 #### [facility] [address] [facility] [place], [address] Basophils/100 WBC (Bld) 0.4 % Normal 0-1 [facility] Comment on above: Performed By: #### L 3100.5475, L100.0100, L500.4050, L101.9900, L3300.6900, L501.72008, L500.4100, L506.0400, L501.6710, L505.7010, L506.1001, L503.6030, L503.6550, L501.9520, L501.9985 #### [facility] [address] [place], [address] Eosinophils/100 WBC (Bld) 1.3 % Normal 0-5 [facility] Comment on above: Performed By: #### L 3100.5475, L100.0100, L500.4050, L101.9900, L3300.6900, L501.81610, L500.4100, L506.0400, L501.6710, L505.7010, L506.1001, L503.6030, L503.6550, L501.9520, L501.9985 #### [facility] [address] [place], [place], [id number] Erythrocyte distribution width (RBC) [Ratio] 13.7 % Normal 11.6-14.6 [facility] Comment on above: Performed By: #### L 3100.5475, L100.0100, L500.4050, L101.9900, L3300.6900, L501.88451, L500.4100, L506.0400, L501.6710, L505.7010, L506.1001, L503.6030, L503.6550, L501.9520, L501.9985 #### [facility] [address] [facility] [place], [address] Hematocrit (Bld) [Volume fraction] 38.7 % Normal 37-47 [facility] Comment on above: Performed By: #### L 3100.5475, L100.0100, L500.4050, L101.9900, L3300.6900, L501.32112, L500.4100, L506.0400, L501.6710, L505.7010, L506.1001, L503.6030, L503.6550, L501.9520, L501.9985 #### [facility] [address] [place], [address] Hemoglobin (Bld) [Mass/Vol] 12.8 g/dL Normal 12.0-15.0 [facility] Comment on above: Performed By: #### L 3100.5475, L100.0100, L500.4050, L101.9900, L3300.6900, L501.90446, L500.4100, L506.0400, L501.6710, L505.7010, L506.1001, L503.6030, L503.6550, L501.9520, L501.9985 #### [facility] [address] [facility] [place], [address] IG% 0.100 Normal 0.0-0.9 [facility] Comment on above: Result Comment: IG% - Immature Granulocytes (promyelocytes, myelocytes and metamyelocytes) > 1% indicates that a LEFT SHIFT is Present. Performed By: #### L 3100.5475, L100.0100, L500.4050, L101.9900, L3300.6900, L501.88427, L500.4100, L506.0400, L501.6710, L505.7010, L506.1001, L503.6030, L503.6550, L501.9520, L501.9985 #### [facility] [address] [facility] [place], [address] Lymphocytes/100 WBC (Bld) 32.8 % Normal 19-41 [facility] Comment on above: Performed By: #### L 3100.5475, L100.0100, L500.4050, L101.9900, L3300.6900, L501.28022, L500.4100, L506.0400, L501.6710, L505.7010, L506.1001, L503.6030, L503.6550, L501.9520, L501.9985 #### [facility] [address] [facility] [place], [address] MCH (RBC) [Entitic mass] 29.0 pg Normal 27.0-32.0 [facility] Comment on above: Performed By: #### L 3100.5475, L100.0100, L500.4050, L101.9900, L3300.6900, L501.43942, L500.4100, L506.0400, L501.6710, L505.7010, L506.1001, L503.6030, L503.6550, L501.9520, L501.9985 #### [facility] [address] [place], [address] MCHC (RBC) [Mass/Vol] 33.1 g/dL Normal 32-36 [facility] Comment on above: Performed By: #### L 3100.5475, L100.0100, L500.4050, L101.9900, L3300.6900, L501.25318, L500.4100, L506.0400, L501.6710, L505.7010, L506.1001, L503.6030, L503.6550, L501.9520, L501.9985 #### [facility] [address] [place], [address] MCV (RBC) [Entitic vol] 87.6 fL Normal 81-99 [facility] Comment on above: Performed By: #### L 3100.5475, L100.0100, L500.4050, L101.9900, L3300.6900, L501.61362, L500.4100, L506.0400, L501.6710, L505.7010, L506.1001, L503.6030, L503.6550, L501.9520, L501.9985 #### [facility] [address] [facility] [place], [address] Monocytes/100 WBC (Bld) 6.1 % Normal 0-10 [facility] Comment on above: Performed By: #### L 3100.5475, L100.0100, L500.4050, L101.9900, L3300.6900, L501.92093, L500.4100, L506.0400, L501.6710, L505.7010, L506.1001, L503.6030, L503.6550, L501.9520, L501.9985 #### [facility] [address] [place], [address] Neutrophils/100 WBC (Bld) 59.3 % Normal 47-70 [facility] Comment on above: Performed By: #### L 3100.5475, L100.0100, L500.4050, L101.9900, L3300.6900, L501.21290, L500.4100, L506.0400, L501.6710, L505.7010, L506.1001, L503.6030, L503.6550, L501.9520, L501.9985 #### [facility] [address] [place], [address] Nucleated RBC (Bld) [#/Vol] 0 10*3/uL Normal 0-5 [facility] Comment on above: Performed By: #### L 3100.5475, L100.0100, L500.4050, L101.9900, L3300.6900, L501.85628, L500.4100, L506.0400, L501.6710, L505.7010, L506.1001, L503.6030, L503.6550, L501.9520, L501.9985 #### [facility] [address] [place], [place], [phone] (142 Platelet mean volume (Bld) [Entitic vol] 11.1 fL Normal 6.2-12.0 [facility] Comment on above: Performed By: #### L 3100.5475, L100.0100, L500.4050, L101.9900, L3300.6900, L501.41924, L500.4100, L506.0400, L501.6710, L505.7010, L506.1001, L503.6030, L503.6550, L501.9520, L501.9985 #### [facility] [address] [place], [address] Platelets (Bld) [#/Vol] 278 10*3/uL Normal 150-450 [facility] Comment on above: Performed By: #### L 3100.5475, L100.0100, L500.4050, L101.9900, L3300.6900, L501.73925, L500.4100, L506.0400, L501.6710, L505.7010, L506.1001, L503.6030, L503.6550, L501.9520, L501.9985 #### [facility] [address] [place], [place], [phone] (399) RBC (Bld) [#/Vol] 4.42 10*6/uL Normal 4.2-5.4 [facility] Comment on above: Performed By: #### L 3100.5475, L100.0100, L500.4050, L101.9900, L3300.6900, L501.55754, L500.4100, L506.0400, L501.6710, L505.7010, L506.1001, L503.6030, L503.6550, L501.9520, L501.9985 #### [facility] [address] [place], [place], [phone] (454) RDW SD 44.1 fl High 35.1-43.9 [facility] Comment on above: Performed By: #### L 3100.5475, L100.0100, L500.4050, L101.9900, L3300.6900, L501.22744, L500.4100, L506.0400, L501.6710, L505.7010, L506.1001, L503.6030, L503.6550, L501.9520, L501.9985 #### [facility] [address] [place], [address] WBC (Bld) [#/Vol] 6.8 10*3/uL Normal 4.4-11.0 [facility] Comment on above: Performed By: #### L 3100.5475, L100.0100, L500.4050, L101.9900, L3300.6900, L501.42842, L500.4100, L506.0400, L501.6710, L505.7010, L506.1001, L503.6030, L503.6550, L501.9520, L501.9985 #### [facility] [address] [facility] [place], [place], [id number] CRPon 05-05-2025 C-REACTIVE PROT < 3.00 Normal 0.0-3.0 [facility] Comment on above: Performed By: #### L 3100.5475, L100.0100, L500.4050, L101.9900, L3300.6900, L501.10751, L500.4100, L506.0400, L501.6710, L505.7010, L506.1001, L503.6030, L503.6550, L501.9520, L501.9985 #### [facility] [address] [facility] [place], [place], [phone] Calculated very low density lipoprotein (VLDL) cholesterol measurementOrdered By: Kenya Loomis on 05-05-2025 Calculated very low density lipoprotein (VLDL) cholesterol measurement 32 mg/dL 5-40 [facility] Carbon dioxide, total [Moles /volume] in Central venous bloodOrdered By: Kenya Loomis on 05-05-2025 CO2 [Moles/Vol] 23.3 mmol/L 21.0-32.0 [facility] Chloride assayOrdered By: Dayanara Loomis on 05-05-2025 Chloride [Moles/Vol] 104 mmol/L 98-108 [facility] Comprehensive Metabolic Prof ilon 05-05-2025 Albumin [Mass/Vol] 4.5 g/dL Normal 3.5-5.0 [facility] Comment on above: Performed By: #### L 3100.5475, L100.0100, L500.4050, L101.9900, L3300.6900, L501.44214, L500.4100, L506.0400, L501.6710, L505.7010, L506.1001, L503.6030, L503.6550, L501.9520, L501.9985 #### [facility] [address] [place], [place], [address] (239) Albumin/Globulin [Mass ratio] 1.7 {ratio} Normal 0.9-2.4 [facility] Comment on above: Performed By: #### L 3100.5475, L100.0100, L500.4050, L101.9900, L3300.6900, L501.47322, L500.4100, L506.0400, L501.6710, L505.7010, L506.1001, L503.6030, L503.6550, L501.9520, L501.9985 #### [facility] [address] [place], [place], [phone] PHOS 81 U/L Normal 35-104 [facility] Comment on above: Performed By: #### L 3100.5475, L100.0100, L500.4050, L101.9900, L3300.6900, L501.85806, L500.4100, L506.0400, L501.6710, L505.7010, L506.1001, L503.6030, L503.6550, L501.9520, L501.9985 #### [facility] [address] [place], [place], [phone] (786) ALT [Catalytic activity/Vol] 16 U/L Normal <=34 [facility] Comment on above: Performed By: #### L 3100.5475, L100.0100, L500.4050, L101.9900, L3300.6900, L501.68441, L500.4100, L506.0400, L501.6710, L505.7010, L506.1001, L503.6030, L503.6550, L501.9520, L501.9985 #### [facility] [address] [place], [place], [id number] AST [Catalytic activity/Vol] 20 U/L Normal <=31 [facility] Comment on above: Performed By: #### L 3100.5475, L100.0100, L500.4050, L101.9900, L3300.6900, L501.89403, L500.4100, L506.0400, L501.6710, L505.7010, L506.1001, L503.6030, L503.6550, L501.9520, L501.9985 #### [facility] [address] [place], [place], [phone] Bilirubin [Mass/Vol] 0.25 mg/dL Normal 0.00-1.30 [facility] Comment on above: Performed By: #### L 3100.5475, L100.0100, L500.4050, L101.9900, L3300.6900, L501.80036, L500.4100, L506.0400, L501.6710, L505.7010, L506.1001, L503.6030, L503.6550, L501.9520, L501.9985 #### [facility] [address] [place], [place], [phone] BUN/CRE 12.5 RATIO Normal 10-20 [facility] Comment on above: Performed By: #### L 3100.5475, L100.0100, L500.4050, L101.9900, L3300.6900, L501.06340, L500.4100, L506.0400, L501.6710, L505.7010, L506.1001, L503.6030, L503.6550, L501.9520, L501.9985 #### [facility] [address] [place], [place], [address] (952) Calcium [Mass/Vol] 10.1 mg/dL Normal 7.6-11.0 [facility] Comment on above: Performed By: #### L 3100.5475, L100.0100, L500.4050, L101.9900, L3300.6900, L501.98455, L500.4100, L506.0400, L501.6710, L505.7010, L506.1001, L503.6030, L503.6550, L501.9520, L501.9985 #### [facility] [address] [place], [place], [phone] (038) Chloride [Moles/Vol] 104 mmol/L Normal 98-108 [facility] Comment on above: Performed By: #### L 3100.5475, L100.0100, L500.4050, L101.9900, L3300.6900, L501.84114, L500.4100, L506.0400, L501.6710, L505.7010, L506.1001, L503.6030, L503.6550, L501.9520, L501.9985 #### [facility] [address] [place], [place], [phone] (829) CO2 [Moles/Vol] 23.3 mmol/L Normal 21.0-32.0 [facility] Comment on above: Performed By: #### L 3100.5475, L100.0100, L500.4050, L101.9900, L3300.6900, L501.33987, L500.4100, L506.0400, L501.6710, L505.7010, L506.1001, L503.6030, L503.6550, L501.9520, L501.9985 #### [facility] [address] [place], [place], [phone] (077) Creatinine [Mass/Vol] 0.71 mg/dL Normal 0.70-1.20 [facility] Comment on above: Performed By: #### L 3100.5475, L100.0100, L500.4050, L101.9900, L3300.6900, L501.35273, L500.4100, L506.0400, L501.6710, L505.7010, L506.1001, L503.6030, L503.6550, L501.9520, L501.9985 #### [facility] [address] [place], [place], [id number] GAP 14 Normal 5-15 [facility] Comment on above: Performed By: #### L 3100.5475, L100.0100, L500.4050, L101.9900, L3300.6900, L501.25336, L500.4100, L506.0400, L501.6710, L505.7010, L506.1001, L503.6030, L503.6550, L501.9520, L501.9985 #### [facility] [address] [place], [address] GFR/1.73 sq M.predicted among non-blacks MDRD (S/P/Bld) [Vol rate/Area] 101 mL/min/{1.73_m2} Normal >60 [facility] Comment on above: Result Comment: mL/m in/1.73m2 CKD-EPI Creatinine Equation (2020) Performed By: #### L 3100.5475, L100.0100, L500.4050, L101.9900, L3300.6900, L501.86810, L500.4100, L506.0400, L501.6710, L505.7010, L506.1001, L503.6030, L503.6550, L501.9520, L501.9985 #### [facility] [address] [place], [address] Globulin (S) [Mass/Vol] 2.7 g/dL Normal 2.2-4.2 [facility] Comment on above: Performed By: #### L 3100.5475, L100.0100, L500.4050, L101.9900, L3300.6900, L501.86762, L500.4100, L506.0400, L501.6710, L505.7010, L506.1001, L503.6030, L503.6550, L501.9520, L501.9985 #### [facility] [address] [place], [address] Glucose [Mass/Vol] 104 mg/dL High 70-99 [facility] Comment on above: Performed By: #### L 3100.5475, L100.0100, L500.4050, L101.9900, L3300.6900, L501.61293, L500.4100, L506.0400, L501.6710, L505.7010, L506.1001, L503.6030, L503.6550, L501.9520, L501.9985 #### [facility] [address] [place], [address] Potassium [Moles/Vol] 4.0 mmol/L Normal 3.3-5.1 [facility] Comment on above: Performed By: #### L 3100.5475, L100.0100, L500.4050, L101.9900, L3300.6900, L501.56097, L500.4100, L506.0400, L501.6710, L505.7010, L506.1001, L503.6030, L503.6550, L501.9520, L501.9985 #### [facility] [address] [place], [address] Sodium [Moles/Vol] 140 mmol/L Normal 133-145 [facility] Comment on above: Performed By: #### L 3100.5475, L100.0100, L500.4050, L101.9900, L3300.6900, L501.53492, L500.4100, L506.0400, L501.6710, L505.7010, L506.1001, L503.6030, L503.6550, L501.9520, L501.9985 #### [facility] [address] [place], [place], [phone] T PROT 7.2 g/dL Normal 5.9-8.4 [facility] Comment on above: Performed By: #### L 3100.5475, L100.0100, L500.4050, L101.9900, L3300.6900, L501.44115, L500.4100, L506.0400, L501.6710, L505.7010, L506.1001, L503.6030, L503.6550, L501.9520, L501.9985 #### [facility] [address] [place], [place], [id number] Urea nitrogen [Mass/Vol] 9 mg/dL Normal 4-19 [facility] Comment on above: Performed By: #### L 3100.5475, L100.0100, L500.4050, L101.9900, L3300.6900, L501.47729, L500.4100, L506.0400, L501.6710, L505.7010, L506.1001, L503.6030, L503.6550, L501.9520, L501.9985 #### [facility] [address] [place], [address] Eosinophil percentageOrdered By: Kenya Loomis on 05-05-2025 Eosinophils/100 WBC (Bld) 1.3 % 0-5 [facility] Erythrocyte Sed Rateon 05-05 SED RATE 11 mm/hr Normal 0-30 [facility] Comment on above: Performed By: #### L 3100.5475, L100.0100, L500.4050, L101.9900, L3300.6900, L501.95739, L500.4100, L506.0400, L501.6710, L505.7010, L506.1001, L503.6030, L503.6550, L501.9520, L501.9985 #### [facility] [address] [place], [address] Erythrocyte distribution wid th ratioOrdered By: Kenyamagaly Loomis on 05-05-2025 Erythrocyte distribution width (RBC) [Ratio] 13.7 % 11.6-14.6 [facility] Erythrocyte distribution wid th standard deviationOrdered By: Kenyamagaly Loomis on 05-05-2025 Erythrocyte distribution width (RBC) [Ratio] 44.1 fl High 35.1-43.9 [facility] Erythrocyte sedimentation ra teOrdered By: Kenya Loomis on 05-05-2025 ESR (Bld) [Velocity] 11 mm/h 0-30 [facility] Ferritinon 05-05-2025 Ferritin [Mass/Vol] 82 ng/mL Normal 22-378 [facility] Comment on above: Performed By: #### L 3100.5475, L100.0100, L500.4050, L101.9900, L3300.6900, L501.73067, L500.4100, L506.0400, L501.6710, L505.7010, L506.1001, L503.6030, L503.6550, L501.9520, L501.9985 #### [facility] [address] [place], [address] Free T3on 05-05-2025 Free T3 [Mass/Vol] 3.2 pg/mL Normal 2.18-3.98 [facility] Comment on above: Performed By: #### L 3100.5475, L100.0100, L500.4050, L101.9900, L3300.6900, L501.81807, L500.4100, L506.0400, L501.6710, L505.7010, L506.1001, L503.6030, L503.6550, L501.9520, L501.9985 #### [facility] [address] [place], [place], [phone] Free E9Zvfwska By: Kenya rodriguez on 05-05-2025 Free T3 [Mass/Vol] 3.2 pg/mL 2.18-3.98 [facility] Glomerular filtration rate ( GFR) estimation/1.73 sq m using serum, plasma, or whole bOrdered By: Kenya Loomis on 05-05-2025 GFR/1.73 sq M.predicted among non-blacks MDRD (S/P/Bld) [Vol rate/Area] 101 mL/min/{1.73_m2} >60 [facility] Comment on above: mL/min/1.73m2 CKD-EP I Creatinine Equation (2020) Hematocrit Auto (Bld) [Volum e fraction]Ordered By: Kenya Loomis on 05-05-2025 Hematocrit (Bld) [Volume fraction] 38.7 % 37-47 [facility] Hemoglobin A1con 05-05-2025 HbA1c (Bld) [Mass fraction] 5.8 % High <=5.6 [facility] Comment on above: Result Comment: Norm al < 5.7 % Prediabetic 5.7 - 6.4 % Diabetic >or= 6.5 % Please note range changes. Performed By: #### L 3100.5475, L100.0100, L500.4050, L101.9900, L3300.6900, L501.17661, L500.4100, L506.0400, L501.6710, L505.7010, L506.1001, L503.6030, L503.6550, L501.9520, L501.9985 #### [facility] [address] [place], [place], [id number] Hemoglobin A1c percentageOrd ered By: Kenya Loomis on 05-05-2025 HbA1c (Bld) [Mass fraction] 5.8 % High <5.7 [facility] Comment on above: Normal < 5.7 % Predi abetic 5.7 - 6.4 % Diabetic >or= 6.5 % Please note range changes. Hemoglobin measurementOrdere d By: Kenya Loomis on 05-05-2025 Hemoglobin (Bld) [Mass/Vol] 12.8 g/dL 12.0-15.0 [facility] Immature granulocytes/100 WB C Auto (Bld)Ordered By: Kenya Loomis on 05-05-2025 Immature granulocytes/100 WBC (Bld) 0.100 % 0.0-0.9 [facility] Comment on above: IG% - Immature Granu locytes (promyelocytes, myelocytes and metamyelocytes) > 1% indicates that a LEFT SHIFT is Present. Iron measurement (mass/mass) Ordered By: Kenya Loomis on 05-05-2025 Iron (Unsp spec) [Mass/Mass] 68 ug/dL 50-170 [facility] Iron+Iron Binding Capacityon 05-05-2025 Iron [Mass/Vol] 68 ug/dL Normal 50-170 [facility] Comment on above: Performed By: #### L 3100.5475, L100.0100, L500.4050, L101.9900, L3300.6900, L501.47880, L500.4100, L506.0400, L501.6710, L505.7010, L506.1001, L503.6030, L503.6550, L501.9520, L501.9985 #### [facility] [address] [place], [address] UIBC 248 ug/dL Normal 228-428 [facility] Comment on above: Performed By: #### L 3100.5475, L100.0100, L500.4050, L101.9900, L3300.6900, L501.90528, L500.4100, L506.0400, L501.6710, L505.7010, L506.1001, L503.6030, L503.6550, L501.9520, L501.9985 #### [facility] [address] [place], [place], [id number] LDL calc ser/plasOrdered By: Kenya Loomis on 05-05-2025 Cholesterol in LDL [Mass/Vol] 119 mg/dL [facility] Comment on above: Liagpbwzbp=244-104 m g/dL & Higher Fkpj=534 mg/dL or greaterFriedwald Equation for LDL-C Laboratory - Chemistry and C hemistry - challengeOrdered By: Kenya Loomis on 05-05-2025 AST [Catalytic activity/Vol] 20 U/L <32 [facility] Lipid Profileon 05-05-2025 CHOL:HDL 3.41 Normal [facility] Comment on above: Performed By: #### L 3100.5475, L100.0100, L500.4050, L101.9900, L3300.6900, L501.34782, L500.4100, L506.0400, L501.6710, L505.7010, L506.1001, L503.6030, L503.6550, L501.9520, L501.9985 #### [facility] [address] [place], [address] Cholesterol [Mass/Vol] 213 mg/dL High <=200 [facility] Comment on above: Result Comment: Chol esterol level, Desirable <200 mg/dL Borderline high cholesterol 200-239 mg/dL High cholesterol >=240 mg/dL Recommendations of the NCEP Adult Treatment Panel for the following risk-cutoff thresholds for the [place] population. Performed By: #### L 3100.5475, L100.0100, L500.4050, L101.9900, L3300.6900, L501.21947, L500.4100, L506.0400, L501.6710, L505.7010, L506.1001, L503.6030, L503.6550, L501.9520, L501.9985 #### [facility] [address] [place], [address] Cholesterol in HDL [Mass/Vol] 63 mg/dL Normal [facility] Comment on above: Result Comment: Amy onal Cholesterol Education Program (NCEP) guidelines: <40 mg/dL: Low HDL-cholesterol (major risk factor for CHD) >= 60 mg/dL: High HDL-cholesterol (negative risk factor for CHD) HDL-cholesterol is affected by a number of factors, e.g. smoking, exercise, hormones, sex and age. Performed By: #### L 3100.5475, L100.0100, L500.4050, L101.9900, L3300.6900, L501.62584, L500.4100, L506.0400, L501.6710, L505.7010, L506.1001, L503.6030, L503.6550, L501.9520, L501.9985 #### [facility] [address] [place], [address] (481) Cholesterol in LDL [Mass/Vol] 119 mg/dL Normal [facility] Comment on above: Result Comment: Bord qabcul=701-580 mg/dL Higher Uopg=487 mg/dL or greater Friedwald Equation for LDL-C Performed By: #### L 3100.5475, L100.0100, L500.4050, L101.9900, L3300.6900, L501.68916, L500.4100, L506.0400, L501.6710, L505.7010, L506.1001, L503.6030, L503.6550, L501.9520, L501.9985 #### [facility] [address] [place], [place], [phone] ([phone] Cholesterol in VLDL [Mass/Vol] 32 mg/dL Normal 5-40 [facility] Comment on above: Performed By: #### L 3100.5475, L100.0100, L500.4050, L101.9900, L3300.6900, L501.75058, L500.4100, L506.0400, L501.6710, L505.7010, L506.1001, L503.6030, L503.6550, L501.9520, L501.9985 #### [facility] [address] [facility] [place], [place], [phone] Triglyceride [Mass/Vol] 159 mg/dL Normal [facility] Comment on above: Result Comment: The drugs N-Acetylcysteine and Metamizole may falsely depress this assay. Normal range: <150 mg/dL Borderline High: 150-199 mg/dL High: 200-499 mg/dL Very High: >500 mg/dL Performed By: #### L 3100.5475, L100.0100, L500.4050, L101.9900, L3300.6900, L501.30362, L500.4100, L506.0400, L501.6710, L505.7010, L506.1001, L503.6030, L503.6550, L501.9520, L501.9985 #### [facility] [address] [facility] [place], [place], [id number] MCV (mean corpuscular volume ) determinationOrdered By: Kenya Loomis on 05-05-2025 MCV (RBC) [Entitic vol] 87.6 fL 81-99 [facility] Mean corpuscular hemoglobin (MCH) determinationOrdered By: Kenya Loomis on 05-05-2025 MCH (RBC) [Entitic mass] 29.0 pg 27.0-32.0 [facility] Mean corpuscular hemoglobin concentration (MCHC) determinationOrdered By: Kenya Loomis on 05-05-2025 MCHC (RBC) [Mass/Vol] 33.1 g/dL 32-36 [facility] Mean platelet volume determi nationOrdered By: Kenya Loomis on 05-05-2025 Platelet mean volume (Bld) [Entitic vol] 11.1 fL 6.2-12.0 [facility] Monocyte percentageOrdered B y: Kenya Loomis on 05-05-2025 Monocytes/100 WBC (Bld) 6.1 % 0-10 [facility] Neutrophil percentageOrdered By: Kenya Loomis on 05-05-2025 Neutrophils/100 WBC (Bld) 59.3 % 47-70 [facility] No Panel InformationOrdered By: Kenya Loomis on 05-05-2025 Unsaturated Iron Binding Capacity 248 ug/dL 228-428 [facility] Nucleated red blood cell per centageOrdered By: Kenya Loomis on 05-05-2025 Nucleated RBC/100 WBC (Bld) [Ratio] 0 % 0-5 [facility] Platelet countOrdered By: Dayanara Loomis on 05-05-2025 Platelets (Bld) [#/Vol] 278 10*3/uL 150-450 [facility] Potassium measurement (mass/ volume)Ordered By: Kenya Loomis on 05-05-2025 Potassium (Unsp spec) [Mass/Vol] 4.0 mmol/L 3.3-5.1 [facility] RBC Auto (Bld) [#/Vol]Ordere d By: Kenya Loomis on 05-05-2025 RBC (Bld) [#/Vol] 4.42 10*6/uL 4.2-5.4 [facility] Rheumatoid Factoron 05-05-20 25 RHEUMATOID FAC < 10.0 Normal <15 [facility] Comment on above: Performed By: #### L 3100.5475, L100.0100, L500.4050, L101.9900, L3300.6900, L501.44475, L500.4100, L506.0400, L501.6710, L505.7010, L506.1001, L503.6030, L503.6550, L501.9520, L501.9985 #### [facility] [place], [address] Screening total cholesterol/ high density lipoprotein (HDL) cholesterol ratioOrdered By: Kenya Loomis on 05-05-2025 Cholesterol.total/Choles terol in HDL [Mass ratio] 3.41 {ratio} [facility] Serum creatinine measurement (mass/volume)Ordered By: Kenya Loomis on 05-05-2025 Creatinine [Mass/Vol] 0.71 mg/dL 0.70-1.20 [facility] Serum globulin measurementOr dered By: Kenya Loomis on 05-05-2025 Globulin (S) [Mass/Vol] 2.7 g/dL 2.2-4.2 [facility] Serum glucose measurement (m ass/volume)Ordered By: Kenya Loomis on 05-05-2025 Glucose [Mass/Vol] 104 mg/dL High 70-99 [facility] Serum or plasma C reactive p rotein measurement (mass/volume)Ordered By: Kenya Loomis on 05-05-2025 CRP [Mass/Vol] mg/L 0.0-3.0 [facility] Serum or plasma alanine mayberry otransferase (ALT) measurementOrdered By: Kenya Loomis on 05-05-2025 ALT [Catalytic activity/Vol] 16 U/L <35 [facility] Serum or plasma albumin dariana urement (mass/volume)Ordered By: Kenya Loomis on 05-05-2025 Albumin [Mass/Vol] 4.5 g/dL 3.5-5.0 [facility] Serum or plasma albumin/glob ulin mass ratioOrdered By: Kenya Loomis on 05-05-2025 Albumin/Globulin [Mass ratio] 1.7 {ratio} 0.9-2.4 [facility] Serum or plasma alkaline amos sphatase measurementOrdered By: Kenya Loomis on 05-05-2025 ALP [Catalytic activity/Vol] 81 U/L 35-104 [facility] Serum or plasma calcium dariana urement (mass/volume)Ordered By: Kenya Loomis on 05-05-2025 Calcium [Mass/Vol] 10.1 mg/dL 7.6-11.0 [facility] Serum or plasma cholesterol in HDL measurement (mass/volume)Ordered By: Kenya Loomis on 05-05-2025 Cholesterol in HDL [Mass/Vol] 63 mg/dL >40 [facility] Comment on above: National Cholesterol Education Program (NCEP) guidelines:<40 mg/dL: Low HDL-cholesterol (major risk factor for CHD)>= 60 mg/dL: High HDL-cholesterol (negative risk factor for CHD)HDL-cholesterol is affected by a number of factors, e.g. smoking, exercise, hormones, sex and age. Serum or plasma cholesterol measurement (mass/volume)Ordered By: Kenya Loomis on 05-05-2025 Cholesterol [Mass/Vol] 213 mg/dL High <201 [facility] Comment on above: Cholesterol level, D esirable <200 mg/dLBorderline high cholesterol 200-239 mg/dLHigh cholesterol >=240 mg/dLRecommendations of the NCEP Adult Treatment Panel for the following risk-cutoff thresholds for the [place] population. Serum or plasma ferritin rubina surement (mass/volume)Ordered By: Kenya Loomis on 05-05-2025 Ferritin [Mass/Vol] 82 ng/mL 22-378 [facility] Serum or plasma iron saturat ion measurement (mass fraction)Ordered By: Kenya Loomis on 05-05-2025 Iron saturation [Mass fraction] 21.5 % 13-59 [facility] Comment on above: Previous reported re sult: 22.0 %Edited by: ALEX on 05/05/25:1755 AMENDED REPORT 05/05/251754 IRON SATURATION previously reported as: 22.0 % Serum or plasma thyroperoxid ase antibody assay (units/volume)Ordered By: Kenya Loomis on 05-05-2025 TPO Ab Qn 11 [IU]/mL 0-34 [facility] Comment on above: Performed at: [place] [id number] Director: Lowell oSn PhD, Phone: [phone] Serum or plasma urea nitroge n measurement (mass/volume)Ordered By: Kenya Loomis on 05-05-2025 Urea nitrogen [Mass/Vol] 9 mg/dL 4-19 [facility] Serum rheumatoid factor dete ctionOrdered By: Kenya Loomis on 05-05-2025 Rheumatoid factor Ql (S) < 10.0 IU/mL <15 [facility] Sodium levelOrdered By: Corine Loomis on 05-05-2025 Sodium [Moles/Vol] 140 mmol/L 133-145 [facility] T4 Free Directon 05-05-2025 T4 FREE DIRECT 1.00 ng/dL Normal 0.76-1.46 [facility] Comment on above: Performed By: #### L 3100.5475, L100.0100, L500.4050, L101.9900, L3300.6900, L501.68990, L500.4100, L506.0400, L501.6710, L505.7010, L506.1001, L503.6030, L503.6550, L501.9520, L501.9985 #### [facility] [address] [place], [place], [id number] T4 freeOrdered By: Kenya rodriguez on 05-05-2025 Free T4 [Mass/Vol] 1.00 ng/dL 0.76-1.46 [facility] TSH DL <= 0.005 mIU/L QnOrde red By: Kenya Loomis on 05-05-2025 TSH Qn 1.700 uIU/mL 0.300-4.200 [facility] Thyroid Stim Hormone (TSH)on 05-05-2025 TSH 1.700 uIU/mL Normal 0.300-4.200 [facility] Comment on above: Performed By: #### L 3100.5475, L100.0100, L500.4050, L101.9900, L3300.6900, L501.53951, L500.4100, L506.0400, L501.6710, L505.7010, L506.1001, L503.6030, L503.6550, L501.9520, L501.9985 #### [facility] [address] [place], [address] Total proteinOrdered By: Kwasi Loomis on 05-05-2025 Protein [Mass/Vol] 7.2 g/dL 5.9-8.4 [facility] Triglycerides measurementOrd ered By: Kenya Loomis on 05-05-2025 Triglyceride [Mass/Vol] 159 mg/dL <199 [facility] Comment on above: The drugs N-Acetylcy steine and Metamizole may falsely depress this assay. Normal range: <150 mg/dLBorderline High: 150-199 mg/dLHigh: 200-499 mg/dLVery High: >500 mg/dL Vitamin D,25 Hydroxyon 05-05 Vitamin D 25-OH 34.2 ng/mL Normal 30-100 [facility] Comment on above: Result Comment: Monique min D Status Deficiency: <20 ng/mL (50nmol/L) Insufficiency: 20-30 ng/mL (50-75 nmol/L) Sufficiency: 30-100 ng/mL (75-250 nmol/L) Toxicity: >100 ng/mL (>250 nmol/L) Performed By: #### L 3100.5475, L100.0100, L500.4050, L101.9900, L3300.6900, L501.93555, L500.4100, L506.0400, L501.6710, L505.7010, L506.1001, L503.6030, L503.6550, L501.9520, L501.9985 #### [facility] [address] [place], [address] White blood cell (WBC) count Ordered By: Kenya Loomis on 05-05-2025 WBC (Bld) [#/Vol] 6.8 10*3/uL 4.4-11.0 [facility] 36on 03-12-2024 36 Letter rescheduling appt date and time mailed to patient [facility] Emilie 10-23-2023 ERIBERTO Telephone (RHBATH) ---- MICHELLE VILLALOBOS ([id number]) 1970 F Date Time Provider Department 10/23/23 NORAH DEJESUS During your visit today, we recorded the following information about you: Delmis Baig 10/23/2023 2:14 PM Signed Internal referral [facility] Conf #[id number] Delmis Baig Allergies As of Date: 10/23/2023 (No Known Allergies) Date Reviewed: 12/21/2021 Reviewed by: Matilde Rodríguez MA - Fully Assessed Reason for Visit: Initial Consult [665] Prescriptions as of 10/23/2023 - estradiol (ELLI, VIVELLE-DOT) 0.1 mg/24 hr apply 1 patch topically two times a week as directed - PARoxetine (PAXIL) 10 mg tablet Take 10 mg by mouth once daily. - progesterone micronized (PROMETRIUM) 100 mg capsule Take 100 mg by mouth at bedtime as needed. - cyclobenzaprine (FLEXERIL) 10 mg tablet Take 1 tablet by mouth three times daily as needed for muscle spasm. - pyridoxine (VITAMIN B-6) 100 mg tablet Take 1 tablet by mouth once daily. - naproxen (NAPROSYN) 500 mg tablet Take 1 tablet by mouth twice daily with meals. Problem List As Of Date 10/23/2023 Noted Resolved Depressive disorder, not elsewhere classified [*11/17/2005 04/04/2012 TOBACCO USE DISORDER [F17.200] 11/06/2008 Anxiety state, unspecified [F41.1] 11/06/2008 04/04/2012 Encounter Status:Closed by DELMIS BAIG on 10/23/23 [facility] Bili Indirect Unable to Calculate Normal [facility] ([place]) Comment on above: Result Comment: Unab le to calculate this test result accurately. Results used to calculate this test are outside the reportable range. Performed By: #### H FP #### [place] [id number] [place], [place] [address] Albumin Level 4.3 G/dL Normal 3.5-5.0 [facility] ([place]) Comment on above: Performed By: #### H FP #### [place] [address] [place], [place] [address] Albumin/Globulin [Mass ratio] 1.3 {ratio} Normal 1.1-2.5 [facility] ([place]) Comment on above: Performed By: #### H FP #### [address] [address] ALP [Catalytic activity/Vol] 81 U/L Normal 40-135 [facility] ([place]) Comment on above: Performed By: #### H FP #### [address] [address] ALT [Catalytic activity/Vol] 22 U/L Normal 14-59 [facility] ([place]) Comment on above: Performed By: #### H FP #### [address] [address] AST [Catalytic activity/Vol] 17 U/L Normal 10-40 [facility] ([place]) Comment on above: Performed By: #### H FP #### [address] [address] Bili Direct <0.1 Normal 0.0-0.2 [facility] ([place]) Comment on above: Result Comment: Use of this assay is not recommended for patients undergoing treatment with eltrombopag due to the potential for falsely elevated results. Performed By: #### H FP #### [address] [address] Bili Total 0.3 mg/dL Normal 0.2-1.0 [facility] ([place]) Comment on above: Result Comment: Use of this assay is not recommended for patients undergoing treatment with eltrombopag due to the potential for falsely elevated results. Performed By: #### H FP #### [address] [address] Globulin 3.2 G/dL Normal [facility] ([place]) Comment on above: Performed By: #### H FP #### [address] [address] Total Protein 7.5 G/dL Normal 6.4-8.2 [facility] ([place]) Comment on above: Performed By: #### H FP #### [address] [address] .Auto Diffon 06-28-2023 Basophil, Absolute 0.1 10 3/mcL Normal 0.0-0.2 [facility] ([place]) Comment on above: Performed By: #### C BC, FT4, ANEU, GFR, ADIFF, VIDH, BMP, TSH, LIPID #### [address] [address] #### HCV1 #### [address] [address] Basophils/100 WBC (Bld) 0.8 % Normal 0.0-2.5 A [facility] ([place]) Comment on above: Performed By: #### C BC, FT4, ANEU, GFR, ADIFF, VIDH, BMP, TSH, LIPID #### [address] [address] #### HCV1 #### [address] [address] Eosinophil, Absolute 0.2 10 3/mcL Normal 0.0-0.4 [facility] ([place]) Comment on above: Performed By: #### C BC, FT4, ANEU, GFR, ADIFF, VIDH, BMP, TSH, LIPID #### [address] [address] #### HCV1 #### [address] [address] Eosinophils/100 WBC (Bld) 3.1 % Normal 0.0-7.0 [facility] ([place]) Comment on above: Performed By: #### C BC, FT4, ANEU, GFR, ADIFF, VIDH, BMP, TSH, LIPID #### [place] [address] #### HCV1 #### [address] [address] Lymphocyte, Absolute 2.7 10 3/mcL Normal 0.8-3.9 [facility] ([place]) Comment on above: Performed By: #### C BC, FT4, ANEU, GFR, ADIFF, VIDH, BMP, TSH, LIPID #### [address] [address] #### HCV1 #### [facility] [address] [place], [place] [address] Lymphocytes/100 WBC (Bld) 37.9 % Normal 10.0-50.0 [facility] ([place]) Comment on above: Performed By: #### C BC, FT4, ANEU, GFR, ADIFF, VIDH, BMP, TSH, LIPID #### [address] [address] #### HCV1 #### [address] [address] Monocyte, Absolute 0.5 10 3/mcL Normal 0.2-1.0 [facility] ([place]) Comment on above: Performed By: #### C BC, FT4, ANEU, GFR, ADIFF, VIDH, BMP, TSH, LIPID #### [address] [address] #### HCV1 #### [address] [address] Monocytes/100 WBC (Bld) 7.0 % Normal 1.7-13.0 A [facility] ([place]) Comment on above: Performed By: #### C BC, FT4, ANEU, GFR, ADIFF, VIDH, BMP, TSH, LIPID #### [address] [address] #### HCV1 #### [address] [address] Neutrophils/100 WBC (Bld) 51.2 % Normal 37.0-80.0 [facility] ([place]) Comment on above: Performed By: #### C BC, FT4, ANEU, GFR, ADIFF, VIDH, BMP, TSH, LIPID #### [address] [address] #### HCV1 #### [address] [address] .GFRon 06-28-2023 GFR 83 ml/min/1.73sqm Normal [facility] ([place]) Comment on above: Result Comment: GFR Population mean for , Non- Americans Ages 20-29 = 116 mL/min/1.73 sq.m. Ages 30-39 = 107 mL/min/1.73 sq.m. Ages 40-49 = 99 mL/min/1.73 sq.m. Ages 50-59 = 93 mL/min/1.73 sq.m. Ages 60-69 = 85 mL/min/1.73 sq.m. Ages 70+ = 75 mL/min/1.73 sq.m. Chronic Kidney Disease: Less than 60 mL/min/1.73 square meters End Stage Renal Disease: Less than 15 mL/min/1.73 square meters Performed By: #### C BC, FT4, ANEU, GFR, ADIFF, VIDH, BMP, TSH, LIPID #### [address] [address] #### HCV1 #### [address] [address] GFR Non- 68 ml/min/1.73sqm Normal [facility] ([place]) Comment on above: Result Comment: GFR Population mean for , Non- Americans Ages 20-29 = 116 mL/min/1.73 sq.m. Ages 30-39 = 107 mL/min/1.73 sq.m. Ages 40-49 = 99 mL/min/1.73 sq.m. Ages 50-59 = 93 mL/min/1.73 sq.m. Ages 60-69 = 85 mL/min/1.73 sq.m. Ages 70+ = 75 mL/min/1.73 sq.m. Chronic Kidney Disease: Less than 60 mL/min/1.73 square meters End Stage Renal Disease: Less than 15 mL/min/1.73 square meters Performed By: #### C BC, FT4, ANEU, GFR, ADIFF, VIDH, BMP, TSH, LIPID #### [address] [address] #### HCV1 #### [address] [address] .NEUABSon 06-28-2023 Neutrophil, Absolute 3.7 10 3/mcL Normal 2.9-6.2 [facility] ([place]) Comment on above: Performed By: #### C BC, FT4, ANEU, GFR, ADIFF, VIDH, BMP, TSH, LIPID #### [address] [address] #### HCV1 #### [address] [address] BMPon 06-28-2023 BUN/Creatinine Ratio 16 ratio Normal 7-27 [facility] ([place]) Comment on above: Performed By: #### C BC, FT4, ANEU, GFR, ADIFF, VIDH, BMP, TSH, LIPID #### [place] [address] #### HCV1 #### [address] [address] Calcium [Mass/Vol] 9.5 mg/dL Normal 8.4-10.2 [facility] ([place]) Comment on above: Performed By: #### C BC, FT4, ANEU, GFR, ADIFF, VIDH, BMP, TSH, LIPID #### [place] [address] #### HCV1 #### [address] [address] Chloride [Moles/Vol] 101 mmol/L Normal 98-107 [facility] ([place]) Comment on above: Performed By: #### C BC, FT4, ANEU, GFR, ADIFF, VIDH, BMP, TSH, LIPID #### [address] [address] #### HCV1 #### [address] [address] CO2 [Moles/Vol] 30 mmol/L High 22-29 [facility] ([place]) Comment on above: Performed By: #### C BC, FT4, ANEU, GFR, ADIFF, VIDH, BMP, TSH, LIPID #### [place] [address] #### HCV1 #### [address] [address] Creatinine [Mass/Vol] 0.87 mg/dL Normal 0.55-1.02 [facility] ([place]) Comment on above: Performed By: #### C BC, FT4, ANEU, GFR, ADIFF, VIDH, BMP, TSH, LIPID #### [address] [address] #### HCV1 #### [address] [address] Electrolyte Balance 8.0 mEq/L Normal 4.0-15.0 [facility] ([place]) Comment on above: Performed By: #### C BC, FT4, ANEU, GFR, ADIFF, VIDH, BMP, TSH, LIPID #### [address] [address] #### HCV1 #### [address] [address] Glucose [Mass/Vol] 103 mg/dL Normal 70-105 [facility] ([place]) Comment on above: Performed By: #### C BC, FT4, ANEU, GFR, ADIFF, VIDH, BMP, TSH, LIPID #### [place] [address] #### HCV1 #### [address] [address] Potassium [Moles/Vol] 5.0 mmol/L Normal 3.5-5.1 [facility] ([place]) Comment on above: Performed By: #### C BC, FT4, ANEU, GFR, ADIFF, VIDH, BMP, TSH, LIPID #### [address] [address] #### HCV1 #### [address] [address] Sodium [Moles/Vol] 139 mmol/L Normal 136-145 [facility] ([place]) Comment on above: Performed By: #### C BC, FT4, ANEU, GFR, ADIFF, VIDH, BMP, TSH, LIPID #### [address] [address] #### HCV1 #### [address] [address] Urea nitrogen [Mass/Vol] 14 mg/dL Normal 7-18 [facility] ([place]) Comment on above: Performed By: #### C BC, FT4, ANEU, GFR, ADIFF, VIDH, BMP, TSH, LIPID #### [place] [address] #### HCV1 #### [place] [address] CBCon 06-28-2023 Erythrocyte distribution width (RBC) [Ratio] 14.0 % Normal 11.5-14.5 [facility] ([place]) Comment on above: Performed By: #### C BC, FT4, ANEU, GFR, ADIFF, VIDH, BMP, TSH, LIPID #### [place] [address] #### HCV1 #### [place] [address] Hematocrit (Bld) [Volume fraction] 39.7 % Normal 37.0-47.0 [facility] ([place]) Comment on above: Performed By: #### C BC, FT4, ANEU, GFR, ADIFF, VIDH, BMP, TSH, LIPID #### [place] [address] #### HCV1 #### [place] [address] Hgb 13.2 G/dL Normal 12.0-16.0 [facility] ([place]) Comment on above: Performed By: #### C BC, FT4, ANEU, GFR, ADIFF, VIDH, BMP, TSH, LIPID #### [place] [address] #### HCV1 #### [place] [address] MCH (RBC) [Entitic mass] 29.3 pg Normal 27.0-31.2 [facility] ([place]) Comment on above: Performed By: #### C BC, FT4, ANEU, GFR, ADIFF, VIDH, BMP, TSH, LIPID #### [place] [address] #### HCV1 #### [place] [address] MCHC 33.3 G/dL Normal 33.0-37.0 [facility] ([place]) Comment on above: Performed By: #### C BC, FT4, ANEU, GFR, ADIFF, VIDH, BMP, TSH, LIPID #### [address] [address] #### HCV1 #### [place] [address] MCV (RBC) [Entitic vol] 88.0 fL Normal 80.0-94.0 A [facility] ([place]) Comment on above: Performed By: #### C BC, FT4, ANEU, GFR, ADIFF, VIDH, BMP, TSH, LIPID #### [place] [address] #### HCV1 #### [place] [address] Platelet 266 10 3/mcL Normal 130-400 [facility] ([place]) Comment on above: Performed By: #### C BC, FT4, ANEU, GFR, ADIFF, VIDH, BMP, TSH, LIPID #### [place] [address] #### HCV1 #### [place] [address] Platelet mean volume (Bld) [Entitic vol] 8.4 fL Normal 7.4-10.4 [facility] ([place]) Comment on above: Performed By: #### C BC, FT4, ANEU, GFR, ADIFF, VIDH, BMP, TSH, LIPID #### [place] [address] #### HCV1 #### [place] [address] RBC 4.51 10 6/mcL Normal 4.20-5.40 [facility] ([place]) Comment on above: Performed By: #### C BC, FT4, ANEU, GFR, ADIFF, VIDH, BMP, TSH, LIPID #### [address] [address] #### HCV1 #### [place] [address] WBC 7.2 10 3/mcL Normal 4.6-10.8 [facility] ([place]) Comment on above: Performed By: #### C BC, FT4, ANEU, GFR, ADIFF, VIDH, BMP, TSH, LIPID #### [place] [address] #### HCV1 #### [place] [address] FT4on 06-28-2023 Free T4 [Mass/Vol] 0.72 ng/dL Low 0.76-1.46 [facility] ([place]) Comment on above: Performed By: #### C BC, FT4, ANEU, GFR, ADIFF, VIDH, BMP, TSH, LIPID #### [place] [address] #### HCV1 #### [place] [address] HCVon 06-28-2023 Hep C Ab Non-Reactive Normal Non-Reactive [facility] ([place]) Comment on above: Performed By: #### C BC, FT4, ANEU, GFR, ADIFF, VIDH, BMP, TSH, LIPID #### [place] [address] #### HCV1 #### [place] [address] Hep C Ab Int Normal [facility] ([place]) Comment on above: Result Comment: Nonr eactive: Samples with a value < 0.80 are considered nonreactive (negative) for antibodies to HCV. A negative test result does not exclude the possibility of exposure to or infection with HCV. HCV antibodies may be undetectable in some stages of the infection and in some clinical conditions. See Interp Performed By: #### C BC, FT4, ANEU, GFR, ADIFF, VIDH, BMP, TSH, LIPID #### [place] [address] #### HCV1 #### [place] [address] [place] [address] LABORATORYOrdered By: SYSTEM SYSTEM on 06-28-2023 25-hydroxyvitamin D3 [Mass/Vol] 29.9 ng/mL Invalid Interpretation Code AO ADM SS Comment on above: Interpretive Data: I nterpretive Values Based on Total 25(OH) Vitamin D: Deficient <20 ng/mL Insufficient 20 - <30 ng/mL Sufficient 30-100 ng/mL Basophil, Absolute 0.1 103/mcL Invalid Interpretation Code 0.0 - 0.2 10^3/mcL AO Workflow SS Basophils/100 WBC (Bld) 0.8 % Invalid Interpretation Code 0.0 - 2.5 % AO Workflow SS Calcium [Mass/Vol] 9.5 mg/dL Invalid Interpretation Code 8.4 - 10.2 mg/dL AO ADM SS Chloride [Moles/Vol] 101 mmol/L Invalid Interpretation Code 98 - 107 mmol/L AO ADM SS CO2 [Moles/Vol] 30 mmol/L Invalid Interpretation Code 22 - 29 mmol/L AO ADM SS Creatinine [Mass/Vol] 0.87 mg/dL Invalid Interpretation Code 0.55 - 1.02 mg/dL AO ADM SS Electrolyte Balance 8.0 mEq/L Invalid Interpretation Code 4.0 - 15.0 mEq/L AO ADM SS Eosinophil, Absolute 0.2 103/mcL Invalid Interpretation Code 0.0 - 0.4 10^3/mcL AO Workflow SS Eosinophils/100 WBC (Bld) 3.1 % Invalid Interpretation Code 0.0 - 7.0 % AO Workflow SS Erythrocyte distribution width (RBC) [Ratio] 14.0 % Invalid Interpretation Code 11.5 - 14.5 % AO Workflow SS Free T4 [Mass/Vol] 0.72 ng/dL Invalid Interpretation Code 0.76 - 1.46 ng/dL AO ADM SS GFR/1.73 sq M.predicted among blacks MDRD (S/P/Bld) [Vol rate/Area] 83 ml/min/1.73sqm Invalid Interpretation Code AO Chemistry S Comment on above: Interpretive Data: GFR Population mean for , Non- Americans Ages 20-29 = 116 mL/min/1.73 sq.m. Ages 30-39 = 107 mL/min/1.73 sq.m. Ages 40-49 = 99 mL/min/1.73 sq.m. Ages 50-59 = 93 mL/min/1.73 sq.m. Ages 60-69 = 85 mL/min/1.73 sq.m. Ages 70+ = 75 mL/min/1.73 sq.m. Chronic Kidney Disease: Less than 60 mL/min/1.73 square meters End Stage Renal Disease: Less than 15 mL/min/1.73 square meters GFR/1.73 sq M.predicted among non-blacks MDRD (S/P/Bld) [Vol rate/Area] 68 ml/min/1.73sqm Invalid Interpretation Code AO Chemistry S Comment on above: Interpretive Data: GFR Population mean for , Non- Americans Ages 20-29 = 116 mL/min/1.73 sq.m. Ages 30-39 = 107 mL/min/1.73 sq.m. Ages 40-49 = 99 mL/min/1.73 sq.m. Ages 50-59 = 93 mL/min/1.73 sq.m. Ages 60-69 = 85 mL/min/1.73 sq.m. Ages 70+ = 75 mL/min/1.73 sq.m. Chronic Kidney Disease: Less than 60 mL/min/1.73 square meters End Stage Renal Disease: Less than 15 mL/min/1.73 square meters Glucose [Mass/Vol] 103 mg/dL Invalid Interpretation Code 70 - 105 mg/dL AO ADM SS Hematocrit (Bld) [Volume fraction] 39.7 % Invalid Interpretation Code 37.0 - 47.0 % AO Workflow SS Hemoglobin (Bld) [Mass/Vol] 13.2 G/dL Invalid Interpretation Code 12.0 - 16.0 G/dL AO Workflow SS Lymphocyte, Absolute 2.7 103/mcL Invalid Interpretation Code 0.8 - 3.9 10^3/mcL AO Workflow SS Lymphocytes/100 WBC (Bld) 37.9 % Invalid Interpretation Code 10.0 - 50.0 % AO Workflow SS MCH (RBC) [Entitic mass] 29.3 pg Invalid Interpretation Code 27.0 - 31.2 pg AO Workflow SS MCHC 33.3 G/dL Invalid Interpretation Code 33.0 - 37.0 G/dL AO Workflow SS MCV (RBC) [Entitic vol] 88.0 fL Invalid Interpretation Code 80.0 - 94.0 fL AO Workflow SS Monocyte, Absolute 0.5 103/mcL Invalid Interpretation Code 0.2 - 1.0 10^3/mcL AO Workflow SS Monocytes/100 WBC (Bld) 7.0 % Invalid Interpretation Code 1.7 - 13.0 % AO Workflow SS Neutrophil, Absolute 3.7 103/mcL Invalid Interpretation Code 2.9 - 6.2 10^3/mcL AO Workflow SS Neutrophils/100 WBC (Bld) 51.2 % Invalid Interpretation Code 37.0 - 80.0 % AO Workflow SS Platelet mean volume (Bld) [Entitic vol] 8.4 fL Invalid Interpretation Code 7.4 - 10.4 fL AO Workflow SS Platelets (Bld) [#/Vol] 266 103/mcL Invalid Interpretation Code 130 - 400 10^3/mcL AO Workflow SS Potassium [Moles/Vol] 5.0 mmol/L Invalid Interpretation Code 3.5 - 5.1 mmol/L AO ADM SS RBC (Bld) [#/Vol] 4.51 106/mcL Invalid Interpretation Code 4.20 - 5.40 10^6/mcL AO Workflow SS Sodium [Moles/Vol] 139 mmol/L Invalid Interpretation Code 136 - 145 mmol/L AO ADM SS TSH Qn 2.65 m[IU]/L Invalid Interpretation Code 0.36 - 3.74 mcIU/mL AO ADM SS Urea nitrogen [Mass/Vol] 14 mg/dL Invalid Interpretation Code 7 - 18 mg/dL AO ADM SS Urea nitrogen/Creatinine [Mass ratio] 16 ratio Invalid Interpretation Code 7 - 27 ratio AO ADM SS WBC (Bld) [#/Vol] 7.2 103/mcL Invalid Interpretation Code 4.6 - 10.8 10^3/mcL AO Workflow SS LABORATORYOrdered By: Lizzie Rebollar on 06-28-2023 Cholesterol [Mass/Vol] 270 mg/dL Invalid Interpretation Code 0 - 200 mg/dL AO ADM SS Comment on above: Interpretive Data: C holesterol Reference Interval: Less than 200 Desirable 200-239 Borderline high risk 240 and above High risk Cholesterol in HDL [Mass/Vol] 69 mg/dL Invalid Interpretation Code 40 - 60 mg/dL AO ADM SS Cholesterol in LDL [Mass/Vol] 177 mg/dL Invalid Interpretation Code 0 - 130 mg/dL AO ADM SS Triglyceride [Mass/Vol] 120 mg/dL Invalid Interpretation Code 0 - 150 mg/dL AO ADM SS Comment on above: Interpretive Data: T riglyceride Reference Interval: Less than 150 Normal 150-199 Borderline high risk 200-499 High risk 500 or higher Very high risk LABORATORYOrdered By: Whit Smith on 06-28-2023 HCV Ab IA Ql Non-Reactive (06/28/23 7:14 AM) Invalid Interpretation Code Non-Reactive AH ADM SS HCV Ab IA Ql Nonreactive: Samples with a value < 0.80 are considered nonreactive (negative) for antibodies to HCV.A negative test result does not exclude the possibility of exposure to or infection with HCV. HCV antibodies may be undetectable in some stages of the infection and in some clinical conditions. Invalid Interpretation Code Chemistry S LIPIDon 06-28-2023 Cholesterol [Mass/Vol] 270 mg/dL High 0-200 [facility] ([place]) Comment on above: Result Comment: Chol esterol Reference Interval: Less than 200 Desirable 200-239 Borderline high risk 240 and above High risk Performed By: #### C BC, FT4, ANEU, GFR, ADIFF, VIDH, BMP, TSH, LIPID #### [place] [address] #### HCV1 #### [address] [address] Cholesterol in HDL [Mass/Vol] 69 mg/dL High 40-60 [facility] ([place]) Comment on above: Performed By: #### C BC, FT4, ANEU, GFR, ADIFF, VIDH, BMP, TSH, LIPID #### [address] [address] #### HCV1 #### [address] [address] Cholesterol in LDL [Mass/Vol] 177 mg/dL High 0-130 [facility] ([place]) Comment on above: Performed By: #### C BC, FT4, ANEU, GFR, ADIFF, VIDH, BMP, TSH, LIPID #### [address] [address] #### HCV1 #### [address] [address] Triglyceride [Mass/Vol] 120 mg/dL Normal 0-150 A [facility] ([place]) Comment on above: Result Comment: Trig lyceride Reference Interval: Less than 150 Normal 150-199 Borderline high risk 200-499 High risk 500 or higher Very high risk Performed By: #### C BC, FT4, ANEU, GFR, ADIFF, VIDH, BMP, TSH, LIPID #### [place] [address] #### HCV1 #### [place] [address] TSHon 06-28-2023 TSH Qn 2.65 m[IU]/L Normal 0.36-3.74 [facility] ([place]) Comment on above: Performed By: #### C BC, FT4, ANEU, GFR, ADIFF, VIDH, BMP, TSH, LIPID #### [place] [address] #### HCV1 #### [place] [address] VIDHon 06-28-2023 Vit. D 25-Hydroxy 29.9 ng/mL Normal [facility] ([place]) Comment on above: Result Comment: Inte rpretive Values Based on Total 25(OH) Vitamin D: Deficient <20 ng/mL Insufficient 20 - <30 ng/mL Sufficient 30-100 ng/mL Performed By: #### C BC, FT4, ANEU, GFR, ADIFF, VIDH, BMP, TSH, LIPID #### [place] [address] #### HCV1 #### [place] [address] LABORATORYOrdered By: Liz Sandoval on 07-01-2022 Albumin BCP dye [Mass/Vol] 4.1 G/dL Invalid Interpretation Code 3.5 - 5.0 G/dL AO ADM SS Albumin/Globulin [Mass ratio] 1.3 {ratio} Invalid Interpretation Code 1.1 - 2.5 ratio AO ADM SS ALP [Catalytic activity/Vol] 80 U/L Invalid Interpretation Code 40 - 135 U/L AO ADM SS ALT With P-5'-P [Catalytic activity/Vol] 22 U/L Invalid Interpretation Code 14 - 59 U/L AO ADM SS AST With P-5'-P [Catalytic activity/Vol] 17 U/L Invalid Interpretation Code 10 - 40 U/L AO ADM SS Basophil, Absolute 0.1 103/mcL Invalid Interpretation Code 0.0 - 0.2 10^3/mcL AO Workflow SS Basophils/100 WBC (Bld) 0.9 % Invalid Interpretation Code 0.0 - 2.5 % AO Workflow SS Bilirubin [Mass/Vol] 0.3 mg/dL Invalid Interpretation Code 0.2 - 1.0 mg/dL AO ADM SS Calcium [Mass/Vol] 9.3 mg/dL Invalid Interpretation Code 8.4 - 10.2 mg/dL AO ADM SS Chloride [Moles/Vol] 102 mmol/L Invalid Interpretation Code 98 - 107 mmol/L AO ADM SS Cholesterol [Mass/Vol] 250 mg/dL Invalid Interpretation Code 0 - 200 mg/dL AO ADM SS Cholesterol in HDL [Mass/Vol] 70 mg/dL Invalid Interpretation Code 40 - 60 mg/dL AO ADM SS Cholesterol in LDL [Mass/Vol] 161 mg/dL Invalid Interpretation Code 0 - 130 mg/dL AO ADM SS CO2 [Moles/Vol] 29 mmol/L Invalid Interpretation Code 22 - 29 mmol/L AO ADM SS Creatinine [Mass/Vol] 0.89 mg/dL Invalid Interpretation Code 0.55 - 1.02 mg/dL AO ADM SS Electrolyte Balance 8.0 mEq/L Invalid Interpretation Code 4.0 - 15.0 mEq/L AO ADM SS Eosinophil, Absolute 0.2 103/mcL Invalid Interpretation Code 0.0 - 0.4 10^3/mcL AO Workflow SS Eosinophils/100 WBC (Bld) 3.0 % Invalid Interpretation Code 0.0 - 7.0 % AO Workflow SS Erythrocyte distribution width (RBC) [Ratio] 14.1 % Invalid Interpretation Code 11.5 - 14.5 % AO Workflow SS Ferritin [Mass/Vol] 56.0 ng/mL Invalid Interpretation Code 8.0 - 252.0 ng/mL AO ADM SS Globulin 3.1 G/dL Invalid Interpretation Code AO ADM SS Glucose [Mass/Vol] 130 mg/dL Invalid Interpretation Code 70 - 105 mg/dL AO ADM SS Hematocrit (Bld) [Volume fraction] 40.4 % Invalid Interpretation Code 37.0 - 47.0 % AO Workflow SS Hemoglobin (Bld) [Mass/Vol] 13.7 G/dL Invalid Interpretation Code 12.0 - 16.0 G/dL AO Workflow SS Lymphocyte, Absolute 2.3 103/mcL Invalid Interpretation Code 0.8 - 3.9 10^3/mcL AO Workflow SS Lymphocytes/100 WBC (Bld) 38.5 % Invalid Interpretation Code 10.0 - 50.0 % AO Workflow SS MCH (RBC) [Entitic mass] 30.0 pg Invalid Interpretation Code 27.0 - 31.2 pg AO Workflow SS MCHC 34.0 G/dL Invalid Interpretation Code 33.0 - 37.0 G/dL AO Workflow SS MCV (RBC) [Entitic vol] 88.2 fL Invalid Interpretation Code 80.0 - 94.0 fL AO Workflow SS Monocyte, Absolute 0.3 103/mcL Invalid Interpretation Code 0.2 - 1.0 10^3/mcL AO Workflow SS Monocytes/100 WBC (Bld) 4.7 % Invalid Interpretation Code 1.7 - 13.0 % AO Workflow SS Neutrophil, Absolute 3.2 103/mcL Invalid Interpretation Code 2.9 - 6.2 10^3/mcL AO Workflow SS Neutrophils/100 WBC (Bld) 52.9 % Invalid Interpretation Code 37.0 - 80.0 % AO Workflow SS Platelet mean volume (Bld) [Entitic vol] 7.8 fL Invalid Interpretation Code 7.4 - 10.4 fL AO Workflow SS Platelets (Bld) [#/Vol] 254 103/mcL Invalid Interpretation Code 130 - 400 10^3/mcL AO Workflow SS Potassium [Moles/Vol] 4.6 mmol/L Invalid Interpretation Code 3.5 - 5.1 mmol/L AO ADM SS Protein [Mass/Vol] 7.2 G/dL Invalid Interpretation Code 6.4 - 8.2 G/dL AO ADM SS RBC (Bld) [#/Vol] 4.58 106/mcL Invalid Interpretation Code 4.20 - 5.40 10^6/mcL AO Workflow SS Sodium [Moles/Vol] 139 mmol/L Invalid Interpretation Code 136 - 145 mmol/L AO ADM SS Triglyceride [Mass/Vol] 93 mg/dL Invalid Interpretation Code 0 - 150 mg/dL AO ADM SS TSH Qn 1.61 m[IU]/L Invalid Interpretation Code 0.36 - 3.74 mcIU/mL AO ADM SS Urea nitrogen [Mass/Vol] 13 mg/dL Invalid Interpretation Code 7 - 18 mg/dL AO ADM SS Urea nitrogen/Creatinine [Mass ratio] 15 ratio Invalid Interpretation Code 7 - 27 ratio AO ADM SS Vit. D 25-Hydroxy 40.0 ng/mL Invalid Interpretation Code AO ADM SS WBC (Bld) [#/Vol] 6.0 103/mcL Invalid Interpretation Code 4.6 - 10.8 10^3/mcL AO Workflow SS LABORATORYOrdered By: SYSTEM SYSTEM on 07-01-2022 GFR 81 ml/min/1.73sqm Invalid Interpretation Code AO Chemistry S GFR Non- 67 ml/min/1.73sqm Inval id Interpretation Code AO Chemistry S LABORATORYOrdered By: Jagdish Archer on 06-28-2021 Albumin BCP dye [Mass/Vol] 4.1 G/dL Invalid Interpretation Code 3.5 - 5.0 G/dL AO ADM SS Albumin/Globulin [Mass ratio] 1.4 {ratio} Invalid Interpretation Code 1.1 - 2.5 ratio AO ADM SS ALP [Catalytic activity/Vol] 84 U/L Invalid Interpretation Code 40 - 135 U/L AO ADM SS ALT With P-5'-P [Catalytic activity/Vol] 22 U/L Invalid Interpretation Code 14 - 59 U/L AO ADM SS AST With P-5'-P [Catalytic activity/Vol] 15 U/L Invalid Interpretation Code 10 - 40 U/L AO ADM SS Bilirubin [Mass/Vol] 0.2 mg/dL Invalid Interpretation Code 0.2 - 1.0 mg/dL AO ADM SS Calcium [Mass/Vol] 9.4 mg/dL Invalid Interpretation Code 8.4 - 10.2 mg/dL AO ADM SS Chloride [Moles/Vol] 104 mmol/L Invalid Interpretation Code 98 - 107 mmol/L AO ADM SS Cholesterol [Mass/Vol] 223 mg/dL Invalid Interpretation Code 0 - 200 mg/dL AO ADM SS Cholesterol in HDL [Mass/Vol] 66 mg/dL Invalid Interpretation Code 40 - 60 mg/dL AO ADM SS Cholesterol in LDL [Mass/Vol] 137 mg/dL Invalid Interpretation Code 0 - 130 mg/dL AO ADM SS CO2 [Moles/Vol] 30 mmol/L Invalid Interpretation Code 22 - 29 mmol/L AO ADM SS Creatinine [Mass/Vol] 0.80 mg/dL Invalid Interpretation Code 0.55 - 1.02 mg/dL AO ADM SS Electrolyte Balance 9.0 mEq/L Invalid Interpretation Code AO ADM SS Free T4 [Mass/Vol] 0.74 ng/dL Invalid Interpretation Code 0.76 - 1.46 ng/dL AO ADM SS Globulin 3.0 G/dL Invalid Interpretation Code AO ADM SS Glucose [Mass/Vol] 88 mg/dL Invalid Interpretation Code 70 - 105 mg/dL AO ADM SS Potassium [Moles/Vol] 4.3 mmol/L Invalid Interpretation Code 3.5 - 5.1 mmol/L AO ADM SS Protein [Mass/Vol] 7.1 G/dL Invalid Interpretation Code 6.4 - 8.2 G/dL AO ADM SS Sodium [Moles/Vol] 143 mmol/L Invalid Interpretation Code 136 - 145 mmol/L AO ADM SS Triglyceride [Mass/Vol] 102 mg/dL Invalid Interpretation Code 0 - 150 mg/dL AO ADM SS TSH Qn 1.76 m[IU]/L Invalid Interpretation Code 0.36 - 3.74 mcIU/mL AO ADM SS Urea nitrogen [Mass/Vol] 8 mg/dL Invalid Interpretation Code 7 - 18 mg/dL AO ADM SS Urea nitrogen/Creatinine [Mass ratio] 10 ratio Invalid Interpretation Code 7 - 27 ratio AO ADM SS LABORATORYOrdered By: Taylor Uriarte on 06-28-2021 Basophil, Absolute 0.10 103/mcL Invalid Interpretation Code 0.00 - 0.19 10^3/mcL AO Auto Heme SS Basophils/100 WBC (Bld) 0.8 % Invalid Interpretation Code 0.0 - 2.5 % AO Auto Heme SS Eosinophil, Absolute 0.20 103/mcL Invalid Interpretation Code 0.00 - 0.40 10^3/mcL AO Auto Heme SS Eosinophils/100 WBC (Bld) 2.8 % Invalid Interpretation Code 0.0 - 7.0 % AO Auto Heme SS Erythrocyte distribution width (RBC) [Ratio] 14.0 % Invalid Interpretation Code 11.5 - 14.5 % AO Auto Heme SS Hematocrit (Bld) [Volume fraction] 38.6 % Invalid Interpretation Code 37.0 - 47.0 % AO Auto Heme SS Hemoglobin (Bld) [Mass/Vol] 13.0 G/dL Invalid Interpretation Code 12.0 - 16.0 G/dL AO Auto Heme SS Lymphocyte, Absolute 2.70 103/mcL Invalid Interpretation Code 0.77 - 3.85 10^3/mcL AO Auto Heme SS Lymphocytes/100 WBC (Bld) 30.8 % Invalid Interpretation Code 10.0 - 50.0 % AO Auto Heme SS MCH (RBC) [Entitic mass] 30.3 pg Invalid Interpretation Code 27.0 - 31.2 pg AO Auto Heme SS MCHC (RBC) [Mass/Vol] 33.8 G/dL Invalid Interpretation Code 33.0 - 37.0 G/dL AO Auto Heme SS MCV (RBC) [Entitic vol] 89.7 fL Invalid Interpretation Code 80.0 - 94.0 fL AO Auto Heme SS Monocyte, Absolute 0.50 103/mcL Invalid Interpretation Code 0.15 - 1.00 10^3/mcL AO Auto Heme SS Monocytes/100 WBC (Bld) 6.2 % Invalid Interpretation Code 1.7 - 13.0 % AO Auto Heme SS Neutrophil, Absolute 5.20 103/mcL Invalid Interpretation Code 2.85 - 6.16 10^3/mcL AO Auto Heme SS Neutrophils/100 WBC (Bld) 59.4 % Invalid Interpretation Code 37.0 - 80.0 % AO Auto Heme SS Platelet mean volume (Bld) [Entitic vol] 8.5 fL Invalid Interpretation Code 7.4 - 10.4 fL AO Auto Heme SS Platelets (Bld) [#/Vol] 281 103/mcL Invalid Interpretation Code 130 - 400 10^3/mcL AO Auto Heme SS RBC (Bld) [#/Vol] 4.30 106/mcL Invalid Interpretation Code 4.20 - 5.40 10^6/mcL AO Auto Heme SS WBC (Bld) [#/Vol] 8.70 103/mcL Invalid Interpretation Code 4.60 - 10.80 10^3/mcL AO Auto Heme SS LABORATORYOrdered By: SYSTEM SYSTEM on 06-28-2021 GFR 92 ml/min/1.73sqm Invalid Interpretation Code AO Chemistry S GFR Non- 76 ml/min/1.73sqm Inval id Interpretation Code AO Chemistry S Vital Signs Date Time Vital Sign Value Performing Clinician Case linares 12-21-2021 09:47-0400 Body temperature 97.11 [degF] Nia Young APRN.LABORATORY ANIMAL CARE VETERINARIAN Work Phone: [facility] 12-21-2021 09:47-0400 Body weight 65.95 kg Nia Young APRN.CNP Work Phone: [facility] 12-21-2021 09:47-0400 Diastolic blood pressure 82 mm[Hg] Nia Praisler-Wood JACK TAMP OPERATOR.LABORATORY ANIMAL CARE VETERINARIAN Work Phone: [facility] 12-21-2021 09:47-0400 Heart rate 85 /min Nia Praisler-Wood JACK TAMP OPERATOR.LABORATORY ANIMAL CARE VETERINARIAN Work Phone: [facility] 12-21-2021 09:47-0400 Respiratory rate 18 /min Nia Praisler-Wood JACK TAMP OPERATOR.LABORATORY ANIMAL CARE VETERINARIAN Work Phone: [facility] 12-21-2021 09:47-0400 SaO2% (BldA) [Mass fraction] 99 % Nia Praisler-Wood JACK TAMP OPERATOR.LABORATORY ANIMAL CARE VETERINARIAN Work Phone: [facility] 12-21-2021 09:47-0400 Systolic blood pressure 120 mm[Hg] Nia Praisler-Wood JACK TAMP OPERATOR.LABORATORY ANIMAL CARE VETERINARIAN Work Phone: [facility] Encounters Encounter Date Encounter Type Care Provider Facility Start: 05-15-2025 End: 06-02-2025 Telephone encounter Dirk Harris PSS XR IMAGING Comment on above: Results Start: 05-07-2025 ambulatory KENYA LOOMIS Fa cility:[facility] Start: 05-07-2025 End: 05-07-2025 Subsequent hospital visit by physician Xr [facility] Work Phone: Radiology Start: 05-05-2025 End: 05-05-2025 ambulatory No Primary Care Physician -Laboratory Loretta Quiles Start: 05-05-2025 End: 05-05-2025 Patient encounter procedure Kenya Loomis PALLETIZER OPERATOR-C -Laboratory Loretta Quiles Start: 05-05-2025 End: 05-05-2025 ambulatory Kenya Loomis Facility:[facility] Start: 10-23-2023 Telephone encounter Norah kam MD Work Phone: [facility] Comment on above: Initial Consult Start: 10-23-2023 End: 10-23-2023 ambulatory MONTEZ PRUITT Facility:[facility] Start: 10-23-2023 End: 10-23-2023 ambulatory Norah Dejesus MD Work Phone: [facility] Rheumatology [facility] Ar[facility] Comment on above: Pain in joint, multi ple sites (Primary Dx); Vitamin D deficiency; Trigger finger, acquired Start: 10-23-2023 End: 10-23-2023 Telemedicine consultation with patient Norah Dejesus MD Work Phone: [facility] Start: 06-28-2023 End: 06-29-2023 ambulatory MICHELLE SCHMIDT JACK TAMP OPERATOR-LABORATORY ANIMAL CARE VETERINARIAN Facility:B Start: 06-28-2023 End: 06-28-[address] MONTEZ PRUITT DO [facility] Start: 08-07-2022 ambulatory MICHELLE LINDMarco Yoon JACK TAMP OPERATOR-LABORATORY ANIMAL CARE VETERINARIAN Facility:[facility] Start: 07-21-2022 Telephone encounter Rizwan mackey PA-C Work Phone: Urology Comment on above: appoinment (1st atte mpt. Phone number doesn't work. Looking for an alternative form of communication. /2nd attempt. No answer. Let message on voicemail to schedule w/ Luis Miguel Bean.) Start: 07-01-2022 End: 07-01-2022 Patient encounter procedure MICHELLE SCHMIDT JACK TAMP OPERATOR-LABORATORY ANIMAL CARE VETERINARIAN [facility] Start: 12-21-2021 End: 12-21-2021 Patient encounter procedure Nia Young JACK TAMP OPERATOR.LABORATORY ANIMAL CARE VETERINARIAN Work Phone: [facility] Comment on above: Acute right-sided lo w back pain with right-sided sciatica (Primary Dx) Start: 09-15-2021 End: 09-15-2021 Patient encounter procedure MICHELLE SCHMIDT JACK TAMP OPERATOR-LABORATORY ANIMAL CARE VETERINARIAN [facility] Start: 06-28-2021 End: 06-28-2021 Patient encounter procedure MICHELLE SCHMIDT JACK TAMP OPERATOR-LABORATORY ANIMAL CARE VETERINARIAN [facility] Procedures Date Procedure Procedure Detail Performing Clinician Start: 05-05-2025 LEEANNE measurement No Prim paul Care Physician Comment on above: Performed at: [address] [id number] Director: Lowell Son PhD, Phone: [phone] Start: 05-05-2025 Total iron binding capacity measurement No Primary Care Physician Start: 05-05-2025 Vitamin D, 25-hydrox y measurement No Primary Care Physician Comment on above: Vitamin D StatusDefi ciency: <20 ng/mL (50nmol/L)Insufficiency: 20-30 ng/mL (50-75 nmol/L)Sufficiency: 30-100 ng/mL (75-250 nmol/L)Toxicity: >100 ng/mL (>250 nmol/L) Start: 04-15-2020 Total hysterectomy GRZEGORZ SIE BRAYAN JACK TAMP OPERATOR-LABORATORY ANIMAL CARE VETERINARIAN Start: 08-17-2019 Ankle region structu re (body structure) MICHELLE BRAYAN JACK TAMP OPERATOR-LABORATORY ANIMAL CARE VETERINARIAN Comment on above: RIGHT Start: 04-04-2012 Lipid 1996 panel - S liz or Plasma Norah Dejesus MD Work Phone: Start: 04-04-2012 Mammography Nia Lozada JACK TAMP OPERATOR.LABORATORY ANIMAL CARE VETERINARIAN Work Phone: Start: 09-17-1993 Ligation of fallopian tube MICHELLE BRAYAN JACK TAMP OPERATOR-LABORATORY ANIMAL CARE VETERINARIAN Plan of Treatment Date Care Activity Detail Author Start: 06-04-2025 End: 06-04-2025 Patient encounter procedure 06/04/2025 11:00 AM EDT Office Visit Orthopaedics [address] [address] Diana Paris PA-C [address] [place] [address] consult for bilateral hand pain xrays in chart referral is under scanned doc date 05/15/25 patient has severe arthritis Orthopaedics Comment on above: consult for bilateral hand pain xrays in chart referral is under scanned doc date 05/15/25 patient has severe arthritis Start: 05-20-2025 End: 05-20-2025 Patient encounter procedure Mammogram Comment on above: Screening Mammogram Mass noted just beow the lft lateral rib Start: 05-18-2025 Influenza vaccination Influenza Vaccine (#1) [facility] Start: 07-05-2024 COLOGUARD (FIT-DNA) COLOGUARD (FIT-DNA) [facility] Start: 07-05-2024 COLORECTAL CANCER SCREENING COLORECTAL CANCER SCREENING [facility] Start: 07-05-2024 Screening for malignant neoplasm of colon [facility] Start: 10-23-2023 End: 01-22-2024 25-hydroxyvitamin D3 [Mass/volume] in Serum or Plasma VITAMIN D 25 HYDROXY Lab Routine Pain in joint, multiple sites Vitamin D deficiency Expected: 10/23/2023, Expires: 01/22/2024 [facility] Work Phone: Comment on above: Expected: 10/23/2023, Expires: Start: 10-23-2023 End: 01-22-2024 CBC W Auto Differential panel - Blood CBC + DIFF Lab Routine Pain in joint, multiple sites Expected: 10/23/2023, Expires: 01/22/2024 [facility] Work Phone: Comment on above: Expected: 10/23/2023, Expires: 4 Start: 10-23-2023 End: 01-22-2024 Comprehensive metabolic 2000 panel - Serum or Plasma COMP METABOLIC PANEL Lab Routine Pain in joint, multiple sites Expected: 10/23/2023, Expires: 01/22/2024 [facility] Work Phone: Comment on above: Expected: 10/23/2023, Expires: 4 Start: 10-23-2023 End: 01-22-2024 Creatine kinase [Enzymatic activity/volume] in Serum or Plasma CK CREATINE KINASE Lab Routine Pain in joint, multiple sites Expected: 10/23/2023, Expires: 01/22/2024 [facility] Work Phone: Comment on above: Expected: 10/23/2023, Expires: Start: 10-23-2023 End: 01-22-2024 Creatinine [Mass/volume] in Urine collected for unspecified duration CREATININE RANDOM UR Lab Routine Pain in joint, multiple sites Expected: 10/23/2023, Expires: 01/22/2024 [facility] Work Phone: Comment on above: Expected: 10/23/2023, Expires: Start: 10-23-2023 End: 01-22-2024 Cyclic citrullinated peptide IgG Ab [Units/volume] in Serum or Plasma CCP ANTIBODY IGG Lab Routine Pain in joint, multiple sites Expected: 10/23/2023, Expires: 01/22/2024 [facility] Work Phone: Comment on above: Expected: 10/23/2023, Expires: Start: 10-23-2023 End: 01-22-2024 DNA ANTIBODY DS BLD DNA ANTIBODY DS BLD Lab Routine Pain in joint, multiple sites Expected: 10/23/2023, Expires: 01/22/2024 [facility] Work Phone: Comment on above: Expected: 10/23/2023, Expires: 4 Start: 10-23-2023 End: 01-22-2024 Protein [Mass/volume] in Urine PROTEIN RANDOM UR Lab Routine Pain in joint, multiple sites Expected: 10/23/2023, Expires: 01/22/2024 [facility] Work Phone: Comment on above: Expected: 10/23/2023, Expires: 4 Start: 10-23-2023 End: 01-22-2024 Rheumatoid factor [Units/volume] in Serum or Plasma RHEUMATOID FACTOR BL Lab Routine Pain in joint, multiple sites Expected: 10/23/2023, Expires: 01/22/2024 [facility] Work Phone: Comment on above: Expected: 10/23/2023, Expires: 4 Start: 10-23-2023 End: 01-22-2024 Ribonucleoprotein extractable nuclear Ab [Units/volume] in Serum SED [employer] ANTIBODY BLOOD Lab Routine Pain in joint, multiple sites Expected: 10/23/2023, Expires: 01/22/2024 [facility] Work Phone: Comment on above: Expected: 10/23/2023, Expires: Start: 10-23-2023 End: 01-22-2024 SJOGREN ABS SSA/SSB SJOGREN ABS SSA/SSB Lab Routine Pain in joint, multiple sites Expected: 10/23/2023, Expires: 01/22/2024 [facility] Work Phone: Comment on above: Expected: 10/23/2023, Expires: 4 Start: 10-23-2023 End: 01-22-2024 Buchanan extractable nuclear IgG Ab [Units/volume] in Serum BUCHANAN IGG AB Lab Routine Pain in joint, multiple sites Expected: 10/23/2023, Expires: 01/22/2024 [facility] Work Phone: Comment on above: Expected: 10/23/2023, Expires: Start: 10-23-2023 End: 01-22-2024 Urinalysis complete panel - Urine URINALYSIS WITH MICROSCOPIC, REFLEX CULTURE Lab Routine Pain in joint, multiple sites Expected: 10/23/2023, Expires: 01/22/2024 [facility] Work Phone: Comment on above: Expected: 10/23/2023, Expires: Start: 09-17-2023 Depression Assessment Depression Assessment [facility] Start: 05-18-2023 Influenza vaccination Influenza Vaccine (#1) [facility] Start: 05-18-2022 Influenza vaccination [facility] Start: 09-17-2021 DEPRESSION ASSESSMENT DEPRESSION ASSESSMENT [facility] Start: 2020 Influenza vaccination LUNG CANCER SCREENING [facility] Start: 2020 Pneumococcal Vaccine: 50+ (1 of 1 - PCV) Pneumococcal Vaccine: 50+ (1 of 1 - PCV) [facility] Start: 2020 SHINGRIX VACCINE (1 of 2) SHINGRIX VACCINE (1 of 2) [facility] Start: 04-04-2017 Lipid panel Lipid Screening [facility] Start: 04-04-2017 LIPID SCREEN LIPID SCREEN [facility] Start: 04-04-2017 PAP TESTING PAP TESTING [facility] Start: 04-04-2017 Screening for malignant neoplasm of cervix Pap Testing [facility] Start: 2015 COLOGUARD (FIT-DNA) COLOGUARD (FIT-DNA) [facility] Start: 2015 Colonoscopy COLONOSCOPY [facility] Start: 2015 COLORECTAL CANCER SCREENING COLORECTAL CANCER SCREENING [facility] Start: [address] COLONOGRAPHY [facility] Start: 2015 DIABETES SCREEN DIABETES SCREEN [facility] Start: 2015 Diabetes Screening Diabetes Screening [facility] Start: 2015 FECAL OCCULT BLOOD FECAL OCCULT BLOOD [facility] Start: 2015 Screening for malignant neoplasm of colon [facility] Start: 2015 SIGMOIDOSCOPY SIGMOIDOSCOPY [facility] Start: 04-04-2015 Screening for malignant neoplasm of cervix Cervical Cancer Screening [facility] Start: 04-04-2013 Mammography MAMMOGRAM [facility] Start: 04-04-2013 Screening for malignant neoplasm of breast Mammogram Screening [facility] Start: 2000 HPV TESTING HPV TESTING [facility] Start: 2000 Screening for malignant neoplasm of cervix HPV Testing [facility] Start: 1989 Hepatitis B Vaccine (1 of 3 - 19+ 3-dose series) Hepatitis B Vaccine (1 of 3 - 19+ 3-dose series) [facility] Start: 1989 [facility] Start: 1988 Anxiety Screening Anxiety Screening [facility] Start: 1988 Depression Screening Depression Screening [facility] Start: 1988 HEPATITIS C SCREENING HEPATITIS C SCREENING [facility] Start: 1988 Hepatitis C screening Hepatitis C Screening [facility] Start: 1988 HIV SCREENING HIV SCREENING [facility] Start: 1988 HIV screening HIV Screening [facility] Start: 1982 Adult depression screening assessment DEPRESSION SCREENING [facility] Start: 1976 PNEUMOCOCCAL (1 - PCV) PNEUMOCOCCAL (1 - PCV) [facility] Start: 1976 Pneumococcal vaccination Pneumococcal Vaccine (1 of 2 - PCV) [facility] Start: 1975 COVID-19 VACCINE (1) COVID-19 VACCINE (1) [facility] Start: 1970 COVID-19 VACCINE (#1) COVID-19 VACCINE (#1) [facility] Start: 1970 HEPATITIS B (1 of 3 - 3-dose series) HEPATITIS B (1 of 3 - 3-dose series) [facility] Start: 1970 Hepatitis B Vaccine (1 of 3 - 3-dose series) Hepatitis B Vaccine (1 of 3 - 3-dose series) [facility] End: 11-21-2024 Radex spine cervical 2 or 3 views XR CERV GENERAL 2V AP/LAT Radiology Routine Pain in joint, multiple sites 1 Occurrences starting 10/23/2023 until 11/21/2024 [facility] Work Phone: Comment on above: 1 Occurrences starting 10/23/2023 until 11/21/2024 End: 11-21-2024 Radex spine lumbosacral 2/3 views XR LUMBAR GENERAL 3V AP/LAT/L5-S1 Radiology Routine Pain in joint, multiple sites 1 Occurrences starting 10/23/2023 until 11/21/2024 [facility] Work Phone: Comment on above: 1 Occurrences starting 10/23/2023 until 11/21/2024 End: 11-21-2024 Radiologic examination sacroiliac jnts <3 views XR SACROILIAC JOINTS 2V AP PELVIS/FERGUESON Radiology Routine Pain in joint, multiple sites 1 Occurrences starting 10/23/2023 until 11/21/2024 [facility] Work Phone: Comment on above: 1 Occurrences starting 10/23/2023 until 11/21/2024 End: 11-21-2024 XR ANKLE GENERAL 3V AP/LAT/OBL LEFT XR ANKLE GENERAL 3V AP/LAT/OBL LEFT Radiology Routine Pain in joint, multiple sites 1 Occurrences starting 10/23/2023 until 11/21/2024 [facility] Work Phone: Comment on above: 1 Occurrences starting 10/23/2023 until 11/21/2024 End: 11-21-2024 XR ANKLE GENERAL 3V AP/LAT/OBL RIGHT XR ANKLE GENERAL 3V AP/LAT/OBL RIGHT Radiology Routine Pain in joint, multiple sites 1 Occurrences starting 10/23/2023 until 11/21/2024 [facility] Work Phone: Comment on above: 1 Occurrences starting 10/23/2023 until 11/21/2024 End: 11-21-2024 XR FOOT GENERAL 3V AP/LAT/OBL LEFT XR FOOT GENERAL 3V AP/LAT/OBL LEFT Radiology Routine Pain in joint, multiple sites 1 Occurrences starting 10/23/2023 until 11/21/2024 [facility] Work Phone: Comment on above: 1 Occurrences starting 10/23/2023 until 11/21/2024 End: 11-21-2024 XR FOOT GENERAL 3V AP/LAT/OBL RIGHT XR FOOT GENERAL 3V AP/LAT/OBL RIGHT Radiology Routine Pain in joint, multiple sites 1 Occurrences starting 10/23/2023 until 11/21/2024 [facility] Work Phone: Comment on above: 1 Occurrences starting 10/23/2023 until 11/21/2024 End: 11-21-2024 XR HAND GENERAL 3V PA/LAT/OBL LEFT XR HAND GENERAL 3V PA/LAT/OBL LEFT Radiology Routine Pain in joint, multiple sites 1 Occurrences starting 10/23/2023 until 11/21/2024 [facility] Work Phone: Comment on above: 1 Occurrences starting 10/23/2023 until 11/21/2024 End: 11-21-2024 XR HAND GENERAL 3V PA/LAT/OBL RIGHT XR HAND GENERAL 3V PA/LAT/OBL RIGHT Radiology Routine Pain in joint, multiple sites 1 Occurrences starting 10/23/2023 until 11/21/2024 [facility] Work Phone: Comment on above: 1 Occurrences starting 10/23/2023 until 11/21/2024 End: 11-21-2024 XR HIP GENERAL 3V PELV/AP/LAT LEFT XR HIP GENERAL 3V PELV/AP/LAT LEFT Radiology Routine Pain in joint, multiple sites 1 Occurrences starting 10/23/2023 until 11/21/2024 [facility] Work Phone: Comment on above: 1 Occurrences starting 10/23/2023 until 11/21/2024 End: 11-21-2024 XR HIP GENERAL 3V PELV/AP/LAT RIGHT XR HIP GENERAL 3V PELV/AP/LAT RIGHT Radiology Routine Pain in joint, multiple sites 1 Occurrences starting 10/23/2023 until 11/21/2024 [facility] Work Phone: Comment on above: 1 Occurrences starting 10/23/2023 until 11/21/2024 End: 11-21-2024 XR KNEE SURVEY ARTHRITIS 1V AP BILATERAL XR KNEE SURVEY ARTHRITIS 1V AP BILATERAL Radiology Routine Pain in joint, multiple sites 1 Occurrences starting 10/23/2023 until 11/21/2024 [facility] Work Phone: Comment on above: 1 Occurrences starting 10/23/2023 until 11/21/2024 [place] [facility] Payers Date Payer Category Payer Self-pay 2025 [employer] Blue [employer] BLUE CARD PPO OOS [id number] 2025 Unknown [id number] 2022 Unknown [id number] 2021 Unknown ANTHEM BLUE CARD PPO OOS [id number] 2021-Present [id number] [place] [id number] PPO [id number] 2021 Unknown [id number] 2021 Unknown [id number] 2019 Medicaid [place] [employer] [facility] MED[place] [id number] 2019-Present [phone] [address] [place] [address] Medicaid [id number] 2019 Medicaid [id number] 1970 Unknown [id number] 1970 Unknown [id number] Unknown [id number] Unknown [id number] Unknown [id number] Unknown [id number] Social History Date Type Detail Facility Tobacco Nicotine Use: Va ping Product in Last 90 Days. Type: Electronic Cigarettes (Vaping). [facility] Comment on above: no nicotine Sex Assigned At [facility] Start: 12-21-2021 End: 05-05-2025 Tobacco smoking status SCIS Smokes tobacco daily [facility] Start: 12-21-2021 Alcohol intake Current non-dr rail operations controller of alcohol (finding) [facility] Start: 12-21-[address] [facility] [address] [facility] Start: 1970 Sex Assigned At Not on file [facility] Start: 12-11-2021 End: 12-21-2021 Exposure to SARS-CoV-2 (event) Not sure [facility] History of tobacco use Cigarette Smoker [facility] Start: 12-21-2021 End: 10-23-2023 Cigarettes smoked current (pack per day) - Reported 1 [facility] Start: 12-21-2021 Tobacco use and exposure Smokeless tobacco non-user [facility] Start: 12-21-2021 End: 10-23-2023 Tobacco use panel [facility] Start: 09-24-2023 National Score (1-10 0), lower number is lower risk 74 [facility] Start: 1970 Sex Assigned At Female [facility] Start: 09-24-2023 Gender identity Identifies as female gender (finding) [facility] Start: 07-24-2023 Sexual orientation Heterosexual (fin ding) [facility] Start: 09-11-2019 Alcohol Alcohol [facility] [place] [place] Start: 09-11-2019 Tobacco Use Tobacco Use [facility] Medical Equipment Procedure Code Equipment Code Equipment Origin al Text Equipment Identifier Dates ORIF, ankle 2.7MM CORTICAL SCREW FDA Sta rt: 09-12-2019 ORIF, ankle 3.5 MM CORTICAL SCREW FDA Start: 09-12-2019 ORIF, ankle 3.5MM LOCKING SCREW FDA Star t: 09-12-2019 ORIF, ankle 3.5MM LOCKING SCREW FDA Star t: 09-12-2019 ORIF, ankle 3.5MM LOCKING SCREW FDA Star t: 09-12-2019 ORIF, ankle CANCELLOUS FULL THREADED SCREW FDA Start: 09-12-2019 ORIF, ankle CANNULATED LONG THREAD SCREW FDA Start: 09-12-2019 ORIF, ankle CANNULATED LONG THREAD SCREW FDA Start: 09-12-2019 ORIF, ankle LOCKING STRAIGHT PLATE FDA Start: 09-12-2019 Clinical Notes 11-06-2008 to 05-15-2025 Telephone Encounter - Dirk Harris PSS - 05/15/2025 9:44 AM EDTTelephone Encounter - Dirk Harris PSS - 05/15/2025 9:44 AM EDTTelephone Encounter - Kenya Barlow - 05/15/2025 9:33 AM EDT Note Date & Type Note Facility 05-15-2025 Telephone encounter Note faxed [facility] 05-15-2025 Miscellaneous Notes faxed Patient reports the ordering provider for 05/07/25 XR BL HANDS never received the report. Please fax to the office of Kenya Loomis CNP at [phone]. documented in this encounter [facility] 05-15-2025 Telephone encounter Note Patient reports the ordering provider for 05/07/25 XR BL HANDS never received the report. Please fax to the office of Kenya Loomis CNP at [phone]. [facility] 05-07-2025 History of Presen t illness Narrative Radiology Service Progress Note PATIENT NAME: Michelle Villalobos DATE OF SERVICE: May 07, 2025 TIME: 4:45 PM PATIENT IDENTITY VERIFICATION COMPLETED USING TWO (2) IDENTIFIERS: Name and Date of confirmed by patient verbally. FALL SCREENING: Has the patient had 2 falls in the last year or 1 fall with injury or currently using an Ambulatory Assistive Device (Walker, Cane, Wheelchair, Crutches, etc.)? No PATIENT GENDER DATA: Assigned female at . status: : No status: NO. PATIENT RELEVANT IMPLANT DATA REVIEWED: Not Applicable PATIENT PRESENTS WITH AN IMPLANTABLE OR ATTACHED CHILD WELFARE CONSULTANT: No RADIOLOGY DEPARTMENT: General X-ray: Exam(s) Completed: Upper Extremity X-Ray(s): Hand, bilateral PERIPHERAL IV DATA: Not applicable SIGNED BY: RT Cee(Herve) May 07, 2025 4:45 PM documented in this encounter [facility] 05-07-2025 Note HNO ID: [id number] Author: SASHA MUNIZ RT(Herve) Service: ? Author Type: Technologist Type: Progress Notes Filed: 05/07/2025 16:45 Note Text: Radiology Service Progress Note PATIENT NAME: Michelle Villalobos DATE OF SERVICE: May 07, 2025 TIME: 4:45 PM PATIENT IDENTITY VERIFICATION COMPLETED USING TWO (2) IDENTIFIERS: Name and Date of confirmed by patient verbally. FALL SCREENING: Has the patient had 2 falls in the last year or 1 fall with injury or currently using an Ambulatory Assistive Device (Walker, Cane, Wheelchair, Crutches, etc.)? No PATIENT GENDER DATA: Assigned female at . status: : No status: NO. PATIENT RELEVANT IMPLANT DATA REVIEWED: Not Applicable PATIENT PRESENTS WITH AN IMPLANTABLE OR ATTACHED CHILD WELFARE CONSULTANT: No RADIOLOGY DEPARTMENT: General X-ray: Exam(s) Completed: Upper Extremity X-Ray(s): Hand, bilateral PERIPHERAL IV DATA: Not applicable SIGNED BY: RT Cee(R) May 07, 2025 4:45 PM [facility] 10-23-2023 Miscellaneous Notes Internal referral Orthopaedics Conf #[id number] Delmis Baig documented in this encounter [facility] 10-23-2023 Note HNO ID: [id number] Author: NORAH DEJESUS MD Service: ? Author Type: Physician Type: Progress Notes Filed: 10/24/2023 14:13 Note Text: VIRTUAL VISIT PROGRESS NOTE This is a virtual visit using [employer] Video Visit. It required patient-provider interaction for the medical decision making as documented below. I have communicated my name and active licensure. The patient's identity and physical location were verified at the time of this visit. Either the patient or their legal senior patient account representative has been informed of the risks and benefits of -- and alternatives to -- treatment through a remote evaluation and consents to proceed with the evaluation remotely. Michelle Villalobos is a 53 year old female seen for joint pain. Bilateral hip pain. Did PT for sciatica. Had ankle surgery for fracture, fell on ice. Few years. Pain is worsening. Also has pain over toes, hands. Ache all over, neck, elbows, shoulders. Knots on hands. 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 Trigger finger. LEEANNE neg. Uses neck massager. Pain is affecting her ADL. AM stiffness 20 min. She has swelling in fingers, hands. No recent x rays, PT, not seen pain management. Tried meloxicam, tylenol, Motrin. 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 Family h/o autoimmune disease - sister had lupus Smoking - ex smoker Rheumatology REVIEW OF SYSTEMS: Constitutional: Recent Weight Change: YES gained Fatigue: YES all the time Fever: No Night sweats: YES menopause, stopped HRT Heent: Alopecia: No H/o Inflammatory eye disease (iritis/scleritis): No Hearing loss: No Frequent sinusitis: No Oral ulcers: No Sicca: YES dry mouth Parotid swelling: No Hoarseness: No Dysphagia: No Heme/lymph: Lymphadenopathy: No Hematological abnormalities (anemia, thrombocytopenia, leukopenia): No Abnormal bleeding: No Skin: Malar or discoid lesions: No Photosensitivity: YES Other rashes: No Raynaud's phenomenon: YES blue? Hives: No Tightness: No Nodules/bumps: No Easy Bruising: No Nail changes: No H/o psoriasis: No Gastroenterology: Nausea: YES Vomiting: No Change in bowel movements: No Heartburn: No Respiratory: Dry cough/SOB: No Cardiovascular: Pain in chest: No Musculoskeletal: Per HPI Genitourinary: Vaginal dryness: No Rash/ulcers: No Neurological: Headaches: YES Sensitivity or pain of hands and/or feet: YES hands mostly Psychiatry: Anxiety: YES not on meds Depression: No Poor sleep: YES wakes up early H/o loss: No H/o thrombosis: No Increased susceptibility to infection: No HISTORY REVIEWED (electronic chart updated): PAST MEDICAL HISTORY Diagnosis Date Anxiety state, unspecified 11/06/2008 Depressive disorder, not elsewhere classified Sciatica Tobacco use disorder 11/06/2008 PAST SURGICAL HISTORY Procedure Laterality Date LIG/TRNSXJ FLP TUBE ABDL/VAG APPR UNI/BI 1993 Tubal ligation FAMILY HISTORY Problem Relation Age of Onset Coronary Artery Disease Father Diabetes Father Hypertension Father Hypertension Mother GI Mother Crohn's with ileostomy Headache Brother Social History Tobacco Use Smoking status: Every Day Packs/day: 1.00 Years: 30.00 Additional pack years: 0.00 Total pack years: 30.00 Types: Cigarettes Smokeless tobacco: Never Tobacco comments: Vape Substance Use Topics Alcohol use: No Drug use: No Current Outpatient Medications Medication Sig estradiol (ELLI, VIVELLE-DOT) 0.1 mg/24 hr apply 1 patch topically two times a week as directed PARoxetine (PAXIL) 10 mg tablet Take 10 mg by mouth once daily. progesterone micronized (PROMETRIUM) 100 mg capsule Take 100 mg by mouth at bedtime as needed. cyclobenzaprine (FLEXERIL) 10 mg tablet Take 1 tablet by mouth three times daily as needed for muscle spasm. pyridoxine (VITAMIN B-6) 100 mg tablet Take 1 tablet by mouth once daily. (Patient not taking: Reported on 12/21/2021 ) naproxen (NAPROSYN) 500 mg tablet Take 1 tablet by mouth twice daily with meals. (Patient not taking: Reported on 12/21/2021 ) No current facility-administered medications for this visit. ALLERGIES No Known Allergies REVIEW OF SYSTEMS: All other ROS: negative As noted in HPI PHYSICAL EXAMINATION: VIDEO EXAM: (if completed, performed via video enabled technology) GENERAL: alert and appropriate, in no distress, well-hydrated, well nourished, and happy, smiling, interactive ASSESSMENT: (M25.50) Pain in joint, multiple sites (primary encounter diagnosis) (E55.9) Vitamin D deficiency (M65.30) Trigger finger, acquired PLAN: 53-year-old female is here for evaluation management recommendation for joint pain. Patient reports multiple joint pain, has trigger fingers and other deformities noted today concerning for osteoarthritis. She lacks findings for inflammatory arthritis however cannot be ruled out. Given her young age secondary osteoarthritis should also be considered. Hypermobile joints? She will need further physic (more content not included)... [facility] 10-23-2023 History of Presen t illness Narrative VIRTUAL VISIT PROGRESS NOTE This is a virtual visit using [employer] Video Visit. It required patient-provider interaction for the medical decision making as documented below. I have communicated my name and active licensure. The patient's identity and physical location were verified at the time of this visit. Either the patient or their legal senior patient account representative has been informed of the risks and benefits of -- and alternatives to -- treatment through a remote evaluation and consents to proceed with the evaluation remotely. Michelle Villalobos is a 53 year old female seen for joint pain. Bilateral hip pain. Did PT for sciatica. Had ankle surgery for fracture, fell on ice. Few years. Pain is worsening. Also has pain over toes, hands. Ache all over, neck, elbows, shoulders. Knots on hands. 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 Trigger finger. LEEANNE neg. Uses neck massager. Pain is affecting her ADL. AM stiffness 20 min. She has swelling in fingers, hands. No recent x rays, PT, not seen pain management. Tried meloxicam, tylenol, Motrin. 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 Family h/o autoimmune disease - sister had lupus Smoking - ex smoker Rheumatology REVIEW OF SYSTEMS: Constitutional: Recent Weight Change: YES gained Fatigue: YES all the time Fever: No Night sweats: YES menopause, stopped HRT Heent: Alopecia: No H/o Inflammatory eye disease (iritis/scleritis): No Hearing loss: No Frequent sinusitis: No Oral ulcers: No Sicca: YES dry mouth Parotid swelling: No Hoarseness: No Dysphagia: No Heme/lymph: Lymphadenopathy: No Hematological abnormalities (anemia, thrombocytopenia, leukopenia): No Abnormal bleeding: No Skin: Malar or discoid lesions: No Photosensitivity: YES Other rashes: No Raynaud's phenomenon: YES blue? Hives: No Tightness: No Nodules/bumps: No Easy Bruising: No Nail changes: No H/o psoriasis: No Gastroenterology: Nausea: YES Vomiting: No Change in bowel movements: No Heartburn: No Respiratory: Dry cough/SOB: No Cardiovascular: Pain in chest: No Musculoskeletal: Per HPI Genitourinary: Vaginal dryness: No Rash/ulcers: No Neurological: Headaches: YES Sensitivity or pain of hands and/or feet: YES hands mostly Psychiatry: Anxiety: YES not on meds Depression: No Poor sleep: YES wakes up early H/o loss: No H/o thrombosis: No Increased susceptibility to infection: No HISTORY REVIEWED (electronic chart updated): PAST MEDICAL HISTORY Diagnosis Date Anxiety state, unspecified 11/06/2008 Depressive disorder, not elsewhere classified Sciatica Tobacco use disorder 11/06/2008 PAST SURGICAL HISTORY Procedure Laterality Date LIG/TRNSXJ FLP TUBE ABDL/VAG APPR UNI/BI 1993 Tubal ligation FAMILY HISTORY Problem Relation Age of Onset Coronary Artery Disease Father Diabetes Father Hypertension Father Hypertension Mother GI Mother Crohn's with ileostomy Headache Brother Social History Tobacco Use Smoking status: Every Day Packs/day: 1.00 Years: 30.00 Additional pack years: 0.00 Total pack years: 30.00 Types: Cigarettes Smokeless tobacco: Never Tobacco comments: Vape Substance Use Topics Alcohol use: No Drug use: No Current Outpatient Medications Medication Sig estradiol (ELLI, VIVELLE-DOT) 0.1 mg/24 hr apply 1 patch topically two times a week as directed PARoxetine (PAXIL) 10 mg tablet Take 10 mg by mouth once daily. progesterone micronized (PROMETRIUM) 100 mg capsule Take 100 mg by mouth at bedtime as needed. cyclobenzaprine (FLEXERIL) 10 mg tablet Take 1 tablet by mouth three times daily as needed for muscle spasm. pyridoxine (VITAMIN B-6) 100 mg tablet Take 1 tablet by mouth once daily. (Patient not taking: Reported on 12/21/2021 ) naproxen (NAPROSYN) 500 mg tablet Take 1 tablet by mouth twice daily with meals. (Patient not taking: Reported on 12/21/2021 ) No current facility-administered medications for this visit. ALLERGIES No Known Allergies REVIEW OF SYSTEMS: All other ROS: negative As noted in HPI PHYSICAL EXAMINATION: VIDEO EXAM: (if completed, performed via video enabled technology) GENERAL: alert and appropriate, in no distress, well-hydrated, well nourished, and happy, smiling, interactive ASSESSMENT: (M25.50) Pain in joint, multiple sites (primary encounter diagnosis) (E55.9) Vitamin D deficiency (M65.30) Trigger finger, acquired PLAN: 53-year-old female is here for evaluation management recommendation for joint pain. Patient reports multiple joint pain, has trigger fingers and other deformities noted today concerning for osteoarthritis. She lacks findings for inflammatory arthritis however cannot be ruled out. Given her young age secondary osteoarthritis should also be considered. Hypermobile joints? She will need further physical exam. Evaluation below labs and x-rays. 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 She may benefit from pain management referral. There are no Patient Instructions on file for this visit. I spent a total of 30 minutes on the date of the service which included preparing to see the patient, [id number] patient care, completing clinical documentation, obtaining and/or reviewing separately obtained history, performing a medically appropriate examination, counseling and educating the patient/family/caregiver, independently interpreting results (not separately reported), and communicating results to the patient/family/caregiver Norah Dejesus MD [facility] on 10/23/23 XR KNEE SURVEY ARTHRITIS 1V AP BILATERAL XR FOOT GENERAL 3V AP/LAT/OBL LEFT XR FOOT GENERAL 3V AP/LAT/OBL RIGHT XR ANKLE GENERAL 3V AP/LAT/OBL RIGHT XR ANKLE GENERAL 3V AP/LAT/OBL LEFT XR HAND GENERAL 3V PA/LAT/OBL LEFT XR HAND GENERAL 3V PA/LAT/OBL RIGHT XR CERV GENERAL 2V AP/LAT XR HIP GENERAL 3V PELV/AP/LAT LEFT XR HIP GENERAL 3V PELV/AP/LAT RIGHT XR LUMBAR GENERAL 3V AP/LAT/L5-S1 XR SACROILIAC JOINTS 2V AP PELVIS/FERGUESON DNA ANTIBODY DS BLD SJOGREN ABS SSA/SSB BUCHANAN IGG AB SED [employer]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 Platform used - my chart documented in this encounter [facility] 07-26-2022 Miscellaneous Notes 2nd attempt. No answer. Let message on Azimail to schedule w/ BJose Bean. 1st attempt. Phone number doesn't work. Looking for an alternative form of communication. Chayo Fatima documented in this encounter [facility] 12-21-2021 Seven Barragan - 12/21/2021 10:21 AM EDT SCIATICA: Your exam shows you have sciatica, a condition most often seen in patients with disc disease of the lower back. Sciatica causes pain to radiate from the lower back or buttock area down the leg. It results from pressure on nerve roots coming out of the spine when a disc deteriorates and pushes to one side. Often there is a history of back problems. In most cases sciatica improves greatly with conservative treatment. Most patients with it are completely better after 2-4 weeks of bed rest and other supportive care. Bed rest reduces the disc pressure greatly; sitting is the worst position since the pressure on the disc is over 5 times greater than it is while lying down. You should avoid bending, lifting, and all other activities which make the problem worse. After the pain improves, you may continue with normal activity, taking brief periods for bed rest throughout the day until you are back to normal. Aspirin, ibuprofen, or other anti-inflammatory drugs are often used to help control pain. Muscle relaxants may help by relieving spasm and providing mild sedation. Cold or heat therapy and massage may also give significant relief. Spinal manipulation is not recommended because it can increase the degree of disc protrusion. Surgery is reserved for patients that do not improve with conservative treatment, or who have signs of severe nerve root pressure. You should see your doctor for follow up care as recommended. A program for back injury rehabilitation with stretching and strengthening exercises is an important part of management. Please call your doctor, a back specialist, or the emergency room right away if you notice increased pain, weakness, or numbness in your legs, or if you have any difficulty with bladder or bowel control. documented in this encounter [facility] 12-21-2021 History of Presen t illness Narrative This note was created using Flowboard. Subjective Michelle Villalobos is a 51 year old female who presents with lower back pain radiating into the right leg x 1 month. PMH significant for a fall on ice in August requiring an ORIF of the right ankle- per the patient, during the fall her heel was jammed into her right buttock. She suspects this may be part of her hip and low back pain. She also describes aches and pains in her left neck related to computer usage at work. The history is provided by the patient. Back Pain This is a chronic problem. The current episode started more than 1 week ago. The problem occurs constantly. The problem has been rapidly worsening. The pain is associated with a recent injury. The pain is present in the gluteal region. The quality of the pain is described as shooting and cramping. The pain radiates to the right thigh, right knee and right foot. The pain is severe. The symptoms are aggravated by bending, twisting, stress and certain positions. The pain is the same all the time. Associated symptoms include leg pain, paresthesias and tingling. Pertinent negatives include no chest pain, no fever, no numbness, no weight loss, no headaches, no abdominal swelling, no bowel incontinence, no perianal numbness, no bladder incontinence, no dysuria, no pelvic pain, no paresis and no weakness. She has tried NSAIDs, heat and ice for the symptoms. The treatment provided moderate relief. Risk factors include a sedentary lifestyle. Review of Systems Constitutional: Negative for fever and weight loss. Cardiovascular: Negative for chest pain. Gastrointestinal: Negative for bowel incontinence. Genitourinary: Negative for bladder incontinence, dysuria and pelvic pain. Musculoskeletal: Positive for back pain. Neurological: Positive for tingling and paresthesias. Negative for weakness, numbness and headaches. Objective BP 120/82 Pulse 85 Temp 36.2 C (97.1 F) Resp 18 Wt 66 kg (145 lb 6.4 oz) SpO2 99% PAST MEDICAL HISTORY Diagnosis Date Anxiety state, unspecified 11/06/2008 Depressive disorder, not elsewhere classified Sciatica Tobacco use disorder 11/06/2008 PAST SURGICAL HISTORY Procedure Laterality Date LIG/TRNSXJ FLP TUBE ABDL/VAG APPR UNI/BI 1993 Tubal ligation ALLERGIES Patient has no known allergies. MEDICATIONS estradiol (ELLI, VIVELLE-DOT) 0.1 mg/24 hr apply 1 patch topically two times a week as directed PARoxetine (PAXIL) 10 mg tablet Take 10 mg by mouth once daily. progesterone micronized (PROMETRIUM) 100 mg capsule Take 100 mg by mouth at bedtime as needed. cyclobenzaprine (FLEXERIL) 10 mg tablet Take 1 tablet by mouth twice daily as needed for muscle spasm. predniSONE (DELTASONE) 20 mg tablet Take 2 tablets by mouth once daily for 4 days. Take daily with food. pyridoxine (VITAMIN B-6) 100 mg tablet Take 1 tablet by mouth once daily. naproxen (NAPROSYN) 500 mg tablet Take 1 tablet by mouth twice daily with meals. FAMILY HISTORY Problem Relation Age of Onset Coronary Artery Disease Father Diabetes Father Hypertension Father Hypertension Mother GI Mother Crohn's with ileostomy Headache Brother Social History Tobacco Use Smoking status: Current Every Day Smoker Packs/day: 1.00 Years: 30.00 Pack years: 30.00 Smokeless tobacco: Never Used Tobacco comment: Vape Substance Use Topics Alcohol use: No Drug use: No Physical Exam Vitals reviewed. Constitutional: General: She is not in acute distress. Appearance: Normal appearance. HENT: Head: Normocephalic and atraumatic. Cardiovascular: Rate and Rhythm: Normal rate. Pulmonary: Effort: Pulmonary effort is normal. Musculoskeletal: General: Tenderness present. No swelling. Cervical back: Neck supple. Tenderness present. No rigidity. Thoracic back: Normal. Lumbar back: Tenderness and bony tenderness present. No swelling, edema or signs of trauma. Decreased range of motion. Right hip: Tenderness present. Decreased range of motion. Right knee: No swelling or deformity. Left knee: No swelling or deformity. Right lower leg: Tenderness present. No edema. Left lower leg: No edema. Lymphadenopathy: Cervical: No cervical adenopathy. Skin: General: Skin is warm and dry. Capillary Refill: Capillary refill takes less than 2 seconds. Coloration: Skin is not jaundiced. Neurological: General: No focal deficit present. Mental Status: She is alert and oriented to person, place, and time. Mental status is at baseline. Cranial Nerves: Cranial nerves are intact. Sensory: Sensation is intact. Motor: No weakness. Coordination: Coordination normal. Gait: Gait abnormal. Deep Tendon Reflexes: Reflexes normal. Comments: Antalgic gait Psychiatric: Mood and Affect: Mood normal. Behavior: Behavior normal. Assessment and Plan ASSESSMENT/PLAN: 1. 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 I have reviewed the Advanced Practice Registered Nurse (JACK TAMP OPERATOR) Student's documentation and verified the findings in the note as written. Any additions or changes are noted in bold/italics. Signature: Nia Young Date: 12/21/2021 Time: 11:11 AM documented in this encounter [facility] 11-06-2008 History of Past i llness Narrative Problem Noted Date Resolved Date Anxiety state, unspecified 11/06/200804/04 Depressive disorder, not elsewhere classified 04/04/2012 documented as of this encounter (statuses as of 12/21/2021) [facility]02-[facility]-2009 History of Past illness Narrative* Problem Noted Date Resolved Date Anxiety state, unspecified 11/06/200804/04 Depressive disorder, not elsewhere classified 04/04/2012 documented as of this encounter (statuses as of 07/26/2022) [facility] History of Past illness Narrative* Problem Noted Date Diagnosed Date Resolved Date Anxiety state, unspecified 11/06/2008 0 04/04/2012 Depressive disorder, not elsewhere classified 11/18/19 06 04/04/2012 documented as of this encounter (statuses as of 10/24/2023) [facility] History of Past illness Narrative* Problem Noted Date Diagnosed Date Resolved Date Anxiety state, unspecified 11/06/2008 0 04/04/2012 Depressive disorder, not elsewhere classified 11/18/19 06 04/04/2012 documented as of this encounter (statuses as of 10/25/2023) [facility] Appointment Date:07/26/2021 08:30:00 AM Scheduled Provider:ROMI BEJARANO Location: [place] Appointment Type:WH OV Appointment Date:09/19/2021 05:00:00 PM Scheduled Provider:MICHELLE SCHMIDT Location:[facility] [place] Appointment Type:PC OV Future Scheduled Tests Radiology* CT Abdomen and Pelvis w/ contrast 06/20/21 * MA Mammo Screening Bilateral w/ Chad 06/20/21 [facility] Evaluation + Plan note Future Appointments Appointment Date:09/19/2021 05:00:00 PM Scheduled Provider:MICHELLE SCHMIDT Location:[facility] [place] Appointment Type:PC OV Diagnostic Tests Pending * COVID-19 Only (AO) 09/15/21 Future Scheduled Tests Laboratory* Thyroid Stimulating Hormone 07/08/21 Radiology* CT Abdomen and Pelvis w/ contrast 07/27/21 * MA Mammo Screening Bilateral w/ Chad 07/18/21 [facility] Evaluation + Plan note Future Appointments Appointment Date:07/05/2022 09:45:00 AM Scheduled Provider: Location:[facility] Appointment Type:MA Mammogram Screening Bilateral w/ Chad Appointment Date:07/05/2022 11:30:00 AM Scheduled Provider:MICHELLE SCHMIDT Location:[facility] [place] Appointment Type:PC Wellness Annual w/Labs Diagnostic Tests Pending * Antinuclear Antibody Screen, Serum 07/01/22 * Lyme AB Early Disease 07/01/22 * Rheumatoid Factor 07/01/22 Future Scheduled Tests Laboratory* Thyroid Stimulating Hormone 01/12/22 * Free T4 01/12/22 * Complete Blood Count 01/12/22 * Lipid Profile 01/12/22 * Vitamin D Level 01/12/22 * Complete Metabolic Panel 01/12/22 Radiology* MA Mammo Screening Bilateral w/ Chad 07/18/21 * MA Mammo Screening Bilateral w/ Chad 07/05/22 * CT Abdomen and Pelvis w/ contrast 07/27/21 [facility] Evaluation + Plan note Future Appointments Appointment Date:06/29/2023 02:00:00 PM Scheduled Provider:MONTEZ PRUITT DO Location:[facility] [place] Appointment Type:PC Wellness Annual Future Scheduled Tests Radiology* MA Mammo Screening Bilateral w/ Chad 07/12/22 [facility] Evaluation note* Diagnosis Acute right-sided low back pain with right-sided sciatica- Primary [facility] Diagnosis Pain in joint, multiple sites- Primary Vitamin D deficiency Unspecified vitamin D deficiency Trigger finger, acquired Trigger finger (acquired) [facility] noteNo assessment information availableWEast [facility] Work Phone: Hospital course Narrative No data available for this section [facility] Hospital Discharge instructions No data available for this section [facility] Progress note No data available for this section [facility] Reason for referral (narrative)No reason for referral information availableWEast [facility] Work Phone: Summary Purpose Family History Relationship Condition Age at Onset Recorded Date/T nisha Unknown Family History?DVT Unknown September 11, 2019 4:41pm Family History?DVT Unknown May 052024 10:15am No Family History Records Found Advance Directives No Advanced Directives Records FoundNo Advanced Directives Records FoundNo Advanced Directives Records FoundNo Advanced Directives Records FoundNo Advanced Directives Records Found Reason for Referral Specialty Diagnoses / Procedures Referred By Contac t Referred To Contact Orthopedics Diagnoses Trigger finger, acquired Procedures CONSULT TO ORTHOPAEDICS OFFICE/OUTPATIENT [facility] 60 MINUTES Norah Dejesus MD [address] [place] [address] Referral ID Status Reason Start Date Expiration Date Visits Requested Visits Authorized [id number] Authorized PCP Requested Referral 10/23/2023 10/22/2024 1 1 Specialty Diagnoses / Procedures Referred By Contac t Referred To Contact XR IMAGING Diagnoses Pain in joint, multiple sites Procedures XR SACROILIAC JOINTS 2V AP PELVIS/FERGUESON RADIOLOGIC EXAMINATION SACROILIAC JNTS <3 VIEWS Norah Dejesus MD [address] [place] [address] [place] [address] Referral ID Status Reason Start Date Expiration Date Visits Requested Visits Authorized [id number] Pending Review Auto-Generat ed Referral 10/23/2023 11/21/2024 1 1 Specialty Diagnoses / Procedures Referred By Contac t Referred To Contact XR IMAGING Diagnoses Pain in joint, multiple sites Procedures XR LUMBAR GENERAL 3V AP/LAT/L5-S1 RADEX SPINE LUMBOSACRAL 2/3 VIEWS Norah Dejesus MD [address] [place] [address] [place] [address] Referral ID Status Reason Start Date Expiration Date Visits Requested Visits Authorized [id number] Pending Review Auto-Generat ed Referral 10/23/2023 11/21/2024 1 1 Specialty Diagnoses / Procedures Referred By Contac t Referred To Contact XR IMAGING Diagnoses Pain in joint, multiple sites Procedures XR HIP GENERAL 3V PELV/AP/LAT RIGHT RADEX HIP UNILATERAL WITH PELVIS 2-3 VIEWS Norah Dejesus MD [address] [place] [address] [place] [address] Referral ID Status Reason Start Date Expiration Date Visits Requested Visits Authorized [id number] Pending Review Auto-Generat ed Referral 10/23/2023 11/21/2024 1 1 Specialty Diagnoses / Procedures Referred By Contac t Referred To Contact XR IMAGING Diagnoses Pain in joint, multiple sites Procedures XR HIP GENERAL 3V PELV/AP/LAT LEFT RADEX HIP UNILATERAL WITH PELVIS 2-3 VIEWS Norah Dejesus MD [facility] [place] [address] [place] [address] Referral ID Status Reason Start Date Expiration Date Visits Requested Visits Authorized [id number] Pending Review Auto-Generat ed Referral 10/23/2023 11/21/2024 1 1 Specialty Diagnoses / Procedures Referred By Contac t Referred To Contact XR IMAGING Diagnoses Pain in joint, multiple sites Procedures XR CERV GENERAL 2V AP/LAT RADEX SPINE CERVICAL 2 OR 3 VIEWS Norah Dejesus MD [address] [place] [address] [place] [address] Referral ID Status Reason Start Date Expiration Date Visits Requested Visits Authorized [id number] Pending Review Auto-Generat ed Referral 10/23/2023 11/21/2024 1 1 Specialty Diagnoses / Procedures Referred By Contac t Referred To Contact XR IMAGING Diagnoses Pain in joint, multiple sites Procedures XR HAND GENERAL 3V PA/LAT/OBL RIGHT RADEX HAND MINIMUM 3 VIEWS Norah Dejesus MD [address] [place] [address] [place] [address] Referral ID Status Reason Start Date Expiration Date Visits Requested Visits Authorized [id number] Pending Review Auto-Generat ed Referral 10/23/2023 11/21/2024 1 1 Specialty Diagnoses / Procedures Referred By Contac t Referred To Contact XR IMAGING Diagnoses Pain in joint, multiple sites Procedures XR HAND GENERAL 3V PA/LAT/OBL LEFT RADEX HAND MINIMUM 3 VIEWS Norah Dejesus MD [address] [place] [address] [place] [address] Referral ID Status Reason Start Date Expiration Date Visits Requested Visits Authorized [id number] Pending Review Auto-Generat ed Referral 10/23/2023 11/21/2024 1 1 Specialty Diagnoses / Procedures Referred By Contac t Referred To Contact XR IMAGING Diagnoses Pain in joint, multiple sites Procedures XR ANKLE GENERAL 3V AP/LAT/OBL LEFT RADEX ANKLE COMPLETE MINIMUM 3 VIEWS Norah Dejesus MD [address] [place] [id number] [place] [address] Referral ID Status Reason Start Date Expiration Date Visits Requested Visits Authorized [id number] Pending Review Auto-Generat ed Referral 10/23/2023 11/21/2024 1 1 Specialty Diagnoses / Procedures Referred By Contac t Referred To Contact XR IMAGING Diagnoses Pain in joint, multiple sites Procedures XR ANKLE GENERAL 3V AP/LAT/OBL RIGHT RADEX ANKLE COMPLETE MINIMUM 3 VIEWS Norah Dejesus MD [address] [place] [address] [place] [address] Referral ID Status Reason Start Date Expiration Date Visits Requested Visits Authorized [id number] Pending Review Auto-Generat ed Referral 10/23/2023 11/21/2024 1 1 Specialty Diagnoses / Procedures Referred By Contac t Referred To Contact XR IMAGING Diagnoses Pain in joint, multiple sites Procedures XR FOOT GENERAL 3V AP/LAT/OBL RIGHT RADEX FOOT COMPLETE MINIMUM 3 VIEWS Norah Dejesus MD [address] [place] [address] [place] [address] Referral ID Status Reason Start Date Expiration Date Visits Requested Visits Authorized [id number] Pending Review Auto-Generat ed Referral 10/23/2023 11/21/2024 1 1 Specialty Diagnoses / Procedures Referred By Contac t Referred To Contact XR IMAGING Diagnoses Pain in joint, multiple sites Procedures XR FOOT GENERAL 3V AP/LAT/OBL LEFT RADEX FOOT COMPLETE MINIMUM 3 VIEWS Norah Dejesus MD [address] [place] [address] [place] [address] Referral ID Status Reason Start Date Expiration Date Visits Requested Visits Authorized [id number] Pending Review Auto-Generat ed Referral 10/23/2023 11/21/2024 1 1 Specialty Diagnoses / Procedures Referred By Contac t Referred To Contact XR IMAGING Diagnoses Pain in joint, multiple sites Procedures XR KNEE SURVEY ARTHRITIS 1V AP BILATERAL RADIOLOGIC EXAM BOTH KNEES STANDING ANTEROPOST Norah Dejesus MD [address] [place] [address] [place] [address] Referral ID Status Reason Start Date Expiration Date Visits Requested Visits Authorized [id number] Pending Review Auto-Generat ed Referral 10/23/2023 11/21/2024 1 1 Chief Complaint and Reason for Visit Chief Complaint Admit Date LABWORK May 05, 2025 10 :15am Additional Source Comments Source Comments (unrecognize d section and content) In the event this informatio n is protected by the Federal Confidentiality of Alcohol and Drug Abuse Patient Records regulations: The Federal rules restrict any use of the information to criminally investigate or prosecute any alcohol or drug abuse patient.[facility] the event this information is protected by the Federal Confidentiality of Alcohol and Drug Abuse Patient Records regulations: The Federal rules restrict any use of the information to criminally investigate or prosecute any alcohol or drug abuse patient.[facility] the event this information is protected by the Federal Confidentiality of Alcohol and Drug Abuse Patient Records regulations: The Federal rules restrict any use of the information to criminally investigate or prosecute any alcohol or drug abuse patient.[facility] the event this information is protected by the Federal Confidentiality of Alcohol and Drug Abuse Patient Records regulations: The Federal rules restrict any use of the information to criminally investigate or prosecute any alcohol or drug abuse patient.[facility] the event this information is protected by the Federal Confidentiality of Alcohol and Drug Abuse Patient Records regulations: The Federal rules restrict any use of the information to criminally investigate or prosecute any alcohol or drug abuse patient.[facility] the event this information is protected by the Federal Confidentiality of Alcohol and Drug Abuse Patient Records regulations: The Federal rules restrict any use of the information to criminally investigate or prosecute any alcohol or drug abuse patient.[facility] Reason for Visit (unrecogniz ed section and content) Reason Comments Right Hip Pain low back radiating t o R hip and R leg x1 month Reason Onset Date Comments appoinment 07/21/2022 1st attempt. Amos ne number doesn't work. Looking for an alternative form of communication. 2nd attempt. No answer. Let message on [employer]im[employer] to schedule w/ B. Vikas. Reason Comments Initial Consult Reason Comments Joint Pain Reason Comments Results Care Team (unrecognized sect ion and content) Care Team Personnel Name: MICHELLE SCHMIDT APRN-ELZA Position: P4 Advanced Practice Nurse Med Service: Active Provider Member Role: Primary Care Physician Address: Address: [address] [place] [address] Care Team Related Persons Name: EVANGELINA VILLALOBOS Address: [address] [place], [place] [id number] Patient Care team informatio n (unrecognized section and content) Team Status: Active Member Role/Relationship Status Dates No Primary Care Physician Family Provider Active No Primary Care Physician Primary Care Provider Active Team Status: Inactive Member Role/Relationship Status Dates No Primary Care Physician Primary Care Provider Active Start: May 05, 2025 End: May 05, 2025 SABRINA Abad Attending Provider Active Start: May 05, 2025 End: May 05, 2025 INFORMATION SOURCE (unrecogn ized section and content) DATE CREATED AUTHOR 07/06/2023 [facility] ([place]) DATE CREATED AUTHOR AUTHOR'S ORGANIZ ATION 10/25/2023 [facility] DATE CREATED AUTHOR AUTHOR'S ORGANIZ ATION 03/14/2024 [facility] DATE CREATED AUTHOR AUTHOR'S ORGANIZ ATION 06/04/2025 [facility] DATE CREATED AUTHOR AUTHOR'S ORGANIZ ATION 07/23/2025 [facility] Goals (unrecognized section and content) Goals may be documented in a n alternate section FOR RECORDS PERTAINING TO PATIENTS WHO ARE OR HAVE BEEN ENROLLED IN A CHEMICAL DEPENDENCY/SUBSTANCEABUSE PROGRAM, SOME INFORMATION MAY BE OMITTED. This clinical summary was aggregated from multiple sources. Caution should be exercised in using it in the provision of clinical care. This summary normalizes information from multiple sources, and as a consequence, information in this document may materially change the coding, format and clinical context of patient data. In addition, data may be omitted in some cases. CLINICAL DECISIONS SHOULD BE BASED ON THE PRIMARY CLINICAL RECORDS. [facility] [employer] provides no warranty or guarantee of the accuracy or completeness of information in this document.
== END | disposition home or self-care (01) ==
PROVIDERS: PCP Nurse Practitioner Family; Referring Provider Nurse Practitioner Family; Visit Provider Nurse Practitioner Family
DX: R22.9 Localized swelling, mass and lump, unspecified (principal); R10.13 Epigastric pain
CPT/HCPCS: 71101